=== PATIENT | female | born 1955 ===

== ENCOUNTER → 2020-03-29 14:35 | Outpatient (BNVA) | payer MEDICAID, SELFPAY | PROVIDERS: PCP Internal Medicine; Visit Provider Hospitalist | DX: D86.9 Sarcoidosis, unspecified (principal); R91.8 Other nonspecific abnormal finding of lung field; G47.33 Obstructive sleep apnea (adult) (pediatric); Z99.89 Dependence on other enabling machines and devices | CPT/HCPCS: 99212 ==

== ENCOUNTER → 2020-05-31 14:22 | Outpatient (BNVA) | payer MEDICAID, SELFPAY | PROVIDERS: PCP Internal Medicine; Visit Provider Hospitalist ==

== ENCOUNTER → 2020-10-28 13:07 | Outpatient (BNVA) | payer MEDICAID, SELFPAY | PROVIDERS: PCP Internal Medicine; Visit Provider Hospitalist | DX: N18.9 Chronic kidney disease, unspecified (principal); G47.33 Obstructive sleep apnea (adult) (pediatric); R91.8 Other nonspecific abnormal finding of lung field; D86.9 Sarcoidosis, unspecified; Z99.89 Dependence on other enabling machines and devices | CPT/HCPCS: 99212 ==

== ENCOUNTER 2021-01-24 20:58 | Emergency (ER) | payer OTHER, SELFPAY ==
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
[2021-01-24 21:24] VITALS: PULSE 83; RESP 18; TEMP 36.8; O2SAT 98; BMI 23.8
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
== END 2021-01-25 00:38 | disposition home or self-care (01) ==
PROVIDERS: Emergency Provider Student in an Organized Health Care Education/Training Program
DX: S13.4XXA Sprain of ligaments of cervical spine, initial encounter (principal); S29.012A Strain of muscle and tendon of back wall of thorax, initial encounter; S23.3XXA Sprain of ligaments of thoracic spine, initial encounter; M54.2 Cervicalgia; M54.50 Low back pain, unspecified; G44.309 Post-traumatic headache, unspecified, not intractable; V43.52XA Car driver injured in collision with other type car in traffic accident, initial encounter; Y93.9 Activity, unspecified; Y92.410 Unspecified street and highway as the place of occurrence of the external cause; Y99.9 Unspecified external cause status; Z79.899 Other long term (current) drug therapy
CPT/HCPCS: 70450; 72125; 99283; 99284

== ENCOUNTER 2021-03-18 16:09 | Outpatient (REF) | payer MEDICAID, SELFPAY ==
--- NOTE | ~2021-03-18 | CT_ITS ---
EXAMINATION: CT CHEST WITHOUT CONTRAST CLINICAL INFORMATION: Sarcoidosis COMPARISON: Previous chest CT December 2019 TECHNIQUE: Multidetector volumetric CT imaging of the chest was done. Axial MIP volume rendering provided. Sagittal and coronal reformatted images were obtained. This CT examination was performed using dose optimization techniques as appropriate, variously including the following: *Automated exposure control *Adjustment of mA and/or kV according to patient size (this includes techniques or standardized protocols for targeted exams where dose is matched to indication/reason for exam; i.e. extremities or head) *Use of iterative reconstruction technique DLP: 204 mGy-cm FINDINGS: LUNGS: The right hemidiaphragm no longer appears elevated. There is mild reticular nodular disease seen in the upper lobes, right greater than left. This appears unchanged. There is slight volume loss to right upper lobe that appears unchanged. There is mild biapical pleural and parenchymal scarring. MEDIASTINUM: The thyroid gland appears prominent. There is shotty mediastinal lymphadenopathy that appears unchanged. Evaluation for hilar adenopathy is limited without contrast. The heart does not appear enlarged. There is no pericardial effusion. There may be a small esophageal hernia. PLEURA: There is no pleural effusion. No pleural mass or thickening. There is a left posterior medial diaphragmatic hernia containing fat. AXILLA: There are small bilateral axillary lymph nodes. No enlarged axillary lymph nodes or chest wall mass is seen. UPPER ABDOMEN: Unremarkable. OSSEOUS STRUCTURES: Unremarkable. CT/CT chest wo con IMPRESSION: Mild bilateral upper lobe reticular nodular disease, right greater than left, and upper normal-size mediastinal lymph nodes similar to previous exam. Enlarged thyroid gland.. Fleischner guidelines were followed.
== END 2021-03-18 16:10 | disposition home or self-care (01) ==
LOC: HO.CT 16:09
PROVIDERS: Visit Provider Hospitalist
DX: D86.9 Sarcoidosis, unspecified (principal); R91.8 Other nonspecific abnormal finding of lung field
CPT/HCPCS: 71250

== ENCOUNTER 2021-05-22 18:09 | Emergency (ER) | payer MEDICARE, MEDICAID, SELFPAY ==
--- NOTE | ~2021-05-22 | XR_ITS ---
EXAMINATION: XR CHEST CLINICAL INFORMATION: Cough COMPARISON: CT chest 03/18/2021, chest radiograph 05/18/2019 TECHNIQUE: 2 views of the chest were obtained. FINDINGS: No significant abnormality is noted involving the heart, lungs, mediastinum, bony thorax or soft tissues. Bilateral upper lobe reticular nodular disease is appreciated on prior chest CTs not apparent on the plain film radiograph. XR/XR chest 2V IMPRESSION: No acute intrathoracic disease.
[2021-05-22 18:31] VITALS: BP 159/83; PULSE 78; RESP 18; TEMP 36.2; O2SAT 98; BMI 23.8
[2021-05-22 19:08] LABS: COVID-19 Test Negative (Negative)
[2021-05-22 22:36] VITALS: BP 114/78; PULSE 77; RESP 17; O2SAT 97
[2021-05-22 22:39] VITALS: TEMP 36.9
--- NOTE | 2021-05-22 22:48 | ED_ITS ---
HPI - URI/Sore Throat General Chief Complaint: General Medical Stated Complaint: Asthma/Cough Time Seen by Provider: 05/22/21 22:37 Source: patient Mode of arrival: ambulatory Limitations: no limitations History of Present Illness MD elicited complaint: cough Pertinent past history: asthma Onset (ago): week(s) (1) Consistency: intermittent Severity: mild Able to tolerate fluids by mouth: Yes Exacerbating factors: other (noted it occurred at work today) Relieving factors: nothing Context: other (hx of asthma but does not carry a rescue inhaler) Associated symptoms: denies other symptoms Treatments prior to arrival: none Related Data Home Medications Medication Instructions Recorded Confirmed ascorbate calcium (vitamin C) 500 500 mg PO DAILY 03/29/20 10/28/20 mg tablet clonazepam 0.5 mg tablet 0.5 mg PO DAILY 03/29/20 10/28/20 levothyroxine 112 mcg capsule 112 mcg PO DAILY 03/29/20 10/28/20 multivitamin 1 tab PO DAILY 03/29/20 10/28/20 simvastatin 10 mg tablet 10 mg PO DAILY 03/29/20 10/28/20 Previous Rx's Medication Instructions Recorded albuterol sulfate 90 mcg/actuation 2 puff INHALATION Q6H PRN #8.5 g 05/22/21 aerosol inhaler (Ventolin HFA) prednisone 20 mg tablet 40 mg PO DAILY 4 Days #8 tab 05/22/21 Allergies Allergy/AdvReac Type Severity Reaction Status Date / Time aspirin [ASPIRIN] AdvReac Severe KIDNEY Verified 01/24/21 21:24 FAILURE/KIDNEY PROBLEMS ibuprofen [IBUPROFEN] AdvReac Intermediate KIDNEY Verified 01/24/21 21:24 PROBLEMS Review of Systems Review of Systems: Constitutional : No Fever, No Chills ENT/Mouth : No Hoarseness, No sore throat, No Rhinorrhea Eyes: No Redness, No Discharge, No Vision Changes Cardiovascular : No Chest Pain, no SOB, no Dyspnea on Exertion, No Edema Respiratory : positive Cough, No Sputum, no Wheezing, Gastrointestinal : No Nausea, No Vomiting, No Diarrhea, No abdominal Pain Genitourinary : No Dysuria, No Hematuria Musculoskeletal : No joint pain, No Myalgias Skin : No rash Neuro : No Weakness, No Numbness, No Headache Psych : No anxiety, depression All other systems reviewed and are negative [facility] Past Medical History Attestation statement: The following information was validated with the patient. Medical History Chronic renal disease ADELINA on CPAP Pulmonary nodules Sarcoidosis Social History Social History Patient Tobacco Use Status: Never used Tobacco Advance Directives: No Advance Directives Information Provided: No Physical Exam Vital Signs: Vital Signs: Last Vital Signs Temp 98.4 F 05/22/21 22:39 Pulse 77 05/22/21 22:36 Resp 17 05/22/21 22:36 BP 114/78 05/22/21 22:36 Pulse Ox 97 05/22/21 22:36 BMI result Body Mass Index 23.8 Appearance: Alert. Oriented X3. No acute distress. Eyes: Pupils equal, round and reactive to light. ENT: Pharynx normal. Neck: Normal inspection. Neck supple. CVS: Normal heart rate and rhythm. Pulses normal. Respiratory: No respiratory distress. Breath sounds normal. Abdomen: Soft and non-tender. Skin: Skin warm and dry. Normal skin color. Normal skin turgor. Extremities: No lower extremity edema. No calf ttp Neuro: Oriented X 3. No motor deficit. No sensory deficit. MDM - URI/Sore Throat MDM Narrative Medical decision making narrative: 65 yo female with dry cough for 1 week no CP/SOB but at work today coughed a lot. Does not have rescue inhaler she is not wheezing, not having fevers or mucous production. She no longer carries a rescue inhaler. Does have hx of sarcoidosis and asthma. At this time will give rescue INH and prednisone - she looks well has clear lungs suspect mild asthma. Stable for DC with medications. COVID swab and CXR negative from triage Lab Data Labs: Lab Results 05/22/21 Range/Units 18:33 COVID-19 ([facility]) Negative (Negative) COVID-19 Clin Com See Note Discharge Plan Discharge Clinical Impression: Cough Patient Disposition: Home, Self-Care Instructions: Acute Cough (ED) Additional Instructions: return to ED for any worsening symptoms or concerns Prescriptions: New albuterol sulfate [Ventolin HFA] 90 mcg/actuation HFA aerosol inhaler 2 puff inhalation Q6H PRN (Reason: shortness of breath or wheezing) Qty: 8.5 0RF prednisone 20 mg tablet 40 mg PO DAILY 4 Days Qty: 8 0RF No Action levothyroxine 112 mcg capsule 112 mcg PO DAILY 0RF ascorbate calcium (vitamin C) 500 mg tablet 500 mg PO DAILY 0RF multivitamin Tablet 1 tab PO DAILY 0RF simvastatin 10 mg tablet 10 mg PO DAILY 0RF clonazepam 0.5 mg tablet 0.5 mg PO DAILY 0RF Referrals: Physician,Unknown J [Primary Care Provider] - 3 days Stand Alone Forms: Work/School Release Print Language: Swedish
[2021-05-22] MEDS: predniSONE 20 MG TABLET 40 MG PO (23:34)
[2021-05-22] MEDS: Albuterol Sulfate 90 MCG 8 GM INHALER 2 PUFF INHALE (23:49)
[2021-05-22 23:51] VITALS: PULSE 94; RESP 18; O2SAT 97
== END 2021-05-23 00:08 | disposition home or self-care (01) ==
LOC: HO.ED 22:54
PROVIDERS: Emergency Provider Emergency Medicine
DX: R05.9 Cough, unspecified (principal); J45.909 Unspecified asthma, uncomplicated; Z20.822 Contact with and (suspected) exposure to COVID-19; Z79.899 Other long term (current) drug therapy
CPT/HCPCS: 71046; 87635; 94640; 99283; 99284

== ENCOUNTER → 2021-05-30 15:27 | Outpatient (BNVA) | payer MEDICARE, MEDICAID, SELFPAY | PROVIDERS: PCP Internal Medicine; Visit Provider Hospitalist | DX: D86.9 Sarcoidosis, unspecified (principal); G47.33 Obstructive sleep apnea (adult) (pediatric); R91.8 Other nonspecific abnormal finding of lung field; J18.0 Bronchopneumonia, unspecified organism; J45.21 Mild intermittent asthma with (acute) exacerbation; Z99.89 Dependence on other enabling machines and devices | CPT/HCPCS: 99212 ==

== ENCOUNTER 2021-08-21 15:04 | Emergency (ER) | payer MEDICAID, SELFPAY ==
--- NOTE | ~2021-08-21 | XR_ITS ---
EXAMINATION: XR CHEST CLINICAL INFORMATION: Congestion, cough COMPARISON: Chest radiographs 05/22/2021, 05/18/2019, CT chest noncontrast 03/18/2021 TECHNIQUE: Frontal view of the chest was obtained. FINDINGS: There is mild coarsening of the bronchovascular markings upper zones similar to CT and prior chest radiograph. There is no lobar or segmental airspace consolidation or groundglass opacity. No vascular congestion or effusion. The costophrenic sulci are clear. The heart is normal in size. The hilar and mediastinal contours and bony structures are stable. XR/XR chest 1V IMPRESSION: No acute intrathoracic disease.
[2021-08-21 16:08] VITALS: BP 126/66; PULSE 91; RESP 16; TEMP 36.3; O2SAT 96; BMI 25.4
--- NOTE | 2021-08-21 16:19 | ECG_ITS ---
Test Reason : DIZZINESS Blood Pressure : / mmHG Vent. Rate : 090 BPM Atrial Rate : 090 BPM P-R Int : 122 ms QRS Dur : 078 ms QT Int : 344 ms P-R-T Axes : 058 064 036 degrees QTc Int : 420 ms Normal sinus rhythm Normal ECG When compared with ECG of 15-JUN-2019 16:20, No significant change was found Referred By: Generic ED Physician Electronically Signed By:ASHLEY MONTANEZ MD
[2021-08-21 16:36] LABS: MANUAL DIFF FLAG NO
[2021-08-21 16:37] LABS: Basophils Percent Auto 0.6 % (0-2); Eosinophils Absolute Auto 0.1 X10*3/uL (0.0-0.4); Eosinophils Percent Auto 1.9 % (0-4); Hematocrit 41.5 % (37.0-47.0); Hemoglobin 13.9 g/dl (12.0-16.0); Imm Gran Abs Auto 0.01 X10*3/uL (0.00-0.03); Imm Gran Pct Auto 0.2 % (0.0-0.4); Lymphocytes Absolute Auto 0.8 X10*3/uL (1.2-4.9); Lymphocytes Percent Auto 15.8 % (20-40); Mean Corpuscular HGB Conc 33.5 g/dl (31.0-35.0); Mean Corpuscular Hemoglobin 30.3 pg (27.0-33.0); Mean Corpuscular Volume 90.6 fL (80.0-98.0); Mean Platelet Volume 9.8 fL (9.4-12.3); Monocytes Absolute Auto 0.9 X10*3/uL (0.1-1.2); Monocytes Percent Auto 16.6 % (2-11); Neutrophils Absolute Auto 3.5 x10*3/uL (2.0-8.3); Neutrophils Percent Auto 64.9 % (45-73); Platelet Count 211 X10*3/uL (160-400); Red Blood Count 4.58 X10*6/uL (4.20-5.50); Red Cell Distribution Width 12.5 % (11.0-16.0); White Blood Count 5.3 X10*3/uL (4.8-10.8)
[2021-08-21 16:45] LABS: Strep A Nucleic Acid Negative (Negative)
[2021-08-21 16:53] LABS: Anion Gap 13 (12-20); Blood Urea Nitrogen 21 mg/dL (9-16); Carbon Dioxide 27 mmol/L (22-29); Chloride 102 mmol/L (96-108); Creatinine Clr Calc Pharmacy 47.1; Estimated Glomerular Filt Rate 50; Glucose Random 96 mg/dL (60-115); Potassium 4.3 mmol/L (3.3-5.1); Sodium 138 mmol/L (135-145)
[2021-08-21 16:55] LABS: IDNOW Serial# 55D5AD1C; Influenza A Negative (Negative); Influenza B2 Negative (Negative)
[2021-08-21 16:58] LABS: Troponin-I High Sensitivity < 3.5 ng/L (<3.5-17.0)
[2021-08-21 17:04] LABS: COVID-19 Test Positive (Negative)
[2021-08-21 23:09] VITALS: BP 154/72; PULSE 105; RESP 18; TEMP 36.2; O2SAT 98
--- NOTE | 2021-08-21 23:37 | ED.URI ---
HPI - URI/Sore Throat General Chief Complaint: Upper Respiratory Symptoms Stated Complaint: headache,coughing,congested Time Seen by Provider: 08/21/21 23:37 Source: patient Mode of arrival: ambulatory History of Present Illness HPI Narrative: 66-year-old female with a past medical history of CKD, ADELINA on CPAP, pulmonary nodules, sarcoidosis, presenting to the ED complaining of dry cough, congestion, headache, lightheadedness, chills, body aches, subjective fever since yesterday. Reports mild intermittent SOB. Admits was in contact with COVID 19 positive person. Denies chest pain, ear pain, recent travel, pedal edema MD elicited complaint: cough, sore throat, rhinorrhea and nasal congestion Onset (ago): day(s) Related Data Home Medications Medication Instructions Recorded Confirmed ascorbate calcium (vitamin C) 500 500 mg PO DAILY 03/29/20 10/28/20 mg tablet clonazepam 0.5 mg tablet 0.5 mg PO DAILY 03/29/20 10/28/20 levothyroxine 112 mcg capsule 112 mcg PO DAILY 03/29/20 10/28/20 multivitamin 1 tab PO DAILY 03/29/20 10/28/20 simvastatin 10 mg tablet 10 mg PO DAILY 03/29/20 10/28/20 finasteride 5 mg tablet 2.5 mg PO DAILY 05/30/21 Previous Rx's Medication Instructions Recorded prednisone 20 mg tablet 40 mg PO DAILY 4 Days #8 tab 05/22/21 albuterol sulfate 90 mcg/actuation 2 puff INHALATION Q6H PRN #8.5 g 05/30/21 aerosol inhaler (Ventolin HFA) cefpodoxime 200 mg tablet 200 mg PO BID 10 Days #20 tab 05/30/21 doxycycline hyclate 100 mg capsule 100 mg PO BID 10 Days #20 cap 05/30/21 prednisone 20 mg tablet See Rx Instructions PO DAILY 10 05/30/21 Days #15 tab Allergies Allergy/AdvReac Type Severity Reaction Status Date / Time aspirin [ASPIRIN] AdvReac Severe KIDNEY Verified 05/30/21 15:29 FAILURE/KIDNEY PROBLEMS ibuprofen [IBUPROFEN] AdvReac Intermediate KIDNEY Verified 05/30/21 15:29 PROBLEMS Review of Systems Review of Systems: Constitutional: +subj Fever, No Chills ENT/Mouth: No Ear Pain, + Nasal Congestion, No Sinus Pain, No Hoarseness, + sore throat, N+o Rhinorrhea, No Swallowing Difficulty Cardiovascular: No Chest Pain, + SOB Respiratory: + Cough, No Sputum, No Wheezing Gastrointestinal: No Nausea, No Vomiting, No Diarrhea, No Constipation, No Abdominal pain Genitourinary: No Dysuria, No Urinary Frequency, No Flank Pain Musculoskeletal: No joint pain, No Myalgias, No Joint Swelling Skin: No Skin Lesions, No rash Neuro: No Weakness, No Numbness, No Paresthesias Yes all other systems are reviewed and are negative [facility] Past Medical History Attestation statement: The following information was validated with the patient. Medical History Chronic renal disease ADELINA on CPAP Pulmonary nodules Sarcoidosis Social History Social History Patient Tobacco Use Status: Never used Tobacco Advance Directives: No Physical Exam Vital Signs: Vital Signs: Last Vital Signs Temp 97.1 F 08/21/21 23:09 Pulse 88 08/21/21 23:50 Resp 16 08/21/21 23:50 BP 154/72 H 08/21/21 23:09 Pulse Ox 95 08/21/21 23:50 BMI result Body Mass Index 25.4 Const: General: cooperative, healthy appearing and no acute distress Orientation/consciousness: patient oriented x3 Limitations: no limitations HEENT: Head: Yes normal to inspection and Yes atraumatic Ears: hearing grossly normal bilaterally and external ears normal General nose exam: Normal external nose present Face and sinus: Yes normal facial exam Mouth: Normal oral and palatal mucosa present Throat: Yes posterior oropharynx normal, Yes tonsils normal, Yes uvula midline, No peritonsillar mass and No uvular edema Eyes: General: appearance normal, both eyes and all related structures EOM: EOMs intact bilaterally Neck: Neck: Yes normal visual inspection and Yes no meningeal signs Resp: Effort & Inspection: normal respiratory effort and no respiratory distress Auscultation: clear to auscultation bilaterally, no rales, no rhonchi and no wheezes Cardio: Rate: regular rate Heart sounds: S1 normal heart sound present and S2 normal heart sound present : General: Yes no CVA tenderness Back/Spine/Pelvis: Back: no CVA tenderness Skin: Rashes: no rashes Wounds: no wounds Neuro: General: patient oriented x3, tone normal and no meningeal signs Gait exam (Neuro): Normal gait present Extrem: General: Yes normal to inspection, Yes no pedal edema and Yes no calf tenderness Course Course Course Narrative: - labs unremarkable. Troponin negative. - COVID-19 positive XR chest 1V IMPRESSION: No acute intrathoracic disease. >> results discussed with patient including worrisome signs and symptoms and strict return precautions and needed close follow-up with PCP Patient referral made to [facility] for monoclonal antibodies MDM - URI/Sore Throat MDM Narrative Medical decision making narrative: 66-year-old female with a past medical history of CKD, ADELINA on CPAP, pulmonary nodules, sarcoidosis, presenting to the ED complaining of dry cough, congestion, headache, lightheadedness, chills, body aches, subjective fever since yesterday. on exam vital signs stable, (patient was triaged on RA not nasal cannula like documented), no hypoxia, lungs CTA, nontoxic appearing. Concern for viral illness including COVID-19 versus influenza. Rule out pneumonia. Symptoms atypical for ACS/PE Plan: Labs, CXR, COVID 19/influenza testing Differential Diagnosis Differential diagnosis: Likely upper respiratory infection, sinusitis, viral infection, bronchitis, influenza and pharyngitis Medical Records Attestation: I reviewed the patient's medical records. Lab Data Attestation: I reviewed the patient's lab results. Result diagrams: 08/21/21 16:31 08/21/21 16:31 Labs: Lab Results 08/21/21 08/21/21 08/21/21 Range/Units 16:31 16:31 16:31 WBC 5.3 (4.8-10.8) X10*3/uL RBC 4.58 (4.20-5.50) X10*6/uL Hgb 13.9 (12.0-16.0) g/dl Hct 41.5 (37.0-47.0) % MCV 90.6 (80.0-98.0) fL MCH 30.3 (27.0-33.0) pg MCHC 33.5 (31.0-35.0) g/dl RDW 12.5 (11.0-16.0) % Plt Count 211 (160-400) X10*3/uL MPV 9.8 (9.4-12.3) fL Immature Gran % (Auto) 0.2 (0.0-0.4) % Neut % (Auto) 64.9 (45-73) % Lymph % (Auto) 15.8 L (20-40) % [place] % (Auto) 16.6 H (2-11) % Eos % (Auto) 1.9 (0-4) % Baso % (Auto) 0.6 (0-2) % Lymph # (Auto) 0.8 L (1.2-4.9) X10*3/uL [place] # (Auto) 0.9 (0.1-1.2) X10*3/uL Eos # (Auto) 0.1 (0.0-0.4) X10*3/uL Baso # (Auto) 0.0 (0.0-0.2) X10*3/uL Abs Immat Gran (auto) 0.01 (0.00-0.03) X10*3/uL Absolute Neuts (auto) 3.5 (2.0-8.3) x10*3/uL Absolute Nucleated RBC 0.000 (0.0-0.012) X10*3/uL Nucleated RBC % (auto) 0.0 (0.0-0.2) /100WBC Sodium 138 (135-145) mmol/L Potassium 4.3 (3.3-5.1) mmol/L Chloride 102 (96-108) mmol/L Carbon Dioxide 27 (22-29) mmol/L Anion Gap 13 (12-20) BUN 21 H (9-16) mg/dL Creatinine 1.09 (0.5-1.4) mg/dL Estim Creat Clear Calc 47.1 Estimated GFR 50 Random Glucose 96 (60-115) mg/dL Calcium 10.0 (8.4-10.2) mg/dL Troponin I High Sens (<3.5-17.0) ng/L COVID-19 ([facility]) (Negative) COVID-19 Clin Com Influenza Type A ([facility]) Negative (Negative) Influenza Type B ([facility]) Negative (Negative) Influenza A & B Note See Note S. pyogenes GrpA [facility] (Negative) 08/21/21 08/21/21 08/21/21 Range/Units 16:31 16:31 16:31 WBC (4.8-10.8) X10*3/uL RBC (4.20-5.50) X10*6/uL Hgb (12.0-16.0) g/dl Hct (37.0-47.0) % MCV (80.0-98.0) fL MCH (27.0-33.0) pg MCHC (31.0-35.0) g/dl RDW (11.0-16.0) % Plt Count (160-400) X10*3/uL MPV (9.4-12.3) fL Immature Gran % (Auto) (0.0-0.4) % Neut % (Auto) (45-73) % Lymph % (Auto) (20-40) % [place] % (Auto) (2-11) % Eos % (Auto) (0-4) % Baso % (Auto) (0-2) % Lymph # (Auto) (1.2-4.9) X10*3/uL [place] # (Auto) (0.1-1.2) X10*3/uL Eos # (Auto) (0.0-0.4) X10*3/uL Baso # (Auto) (0.0-0.2) X10*3/uL Abs Immat Gran (auto) (0.00-0.03) X10*3/uL Absolute Neuts (auto) (2.0-8.3) x10*3/uL Absolute Nucleated RBC (0.0-0.012) X10*3/uL Nucleated RBC % (auto) (0.0-0.2) /100WBC Sodium (135-145) mmol/L Potassium (3.3-5.1) mmol/L Chloride (96-108) mmol/L Carbon Dioxide (22-29) mmol/L Anion Gap (12-20) BUN (9-16) mg/dL Creatinine (0.5-1.4) mg/dL Estim Creat Clear Calc Estimated GFR Random Glucose (60-115) mg/dL Calcium (8.4-10.2) mg/dL Troponin I High Sens < 3.5 (<3.5-17.0) ng/L COVID-19 ([facility]) Positive A (Negative) COVID-19 Clin Com See Note Influenza Type A ([facility]) (Negative) Influenza Type B ([facility]) (Negative) Influenza A & B Note S. pyogenes GrpA [facility] Negative (Negative) Discharge Plan Discharge Clinical Impression: COVID-19 Patient Disposition: Home, Self-Care Instructions: COVID-19 (Coronavirus Disease 2019) (ED) Additional Instructions: your blood work and chest x-ray were reassuring today in the emergency department a referral was made for you for monoclonal antibodies, they will call you to make an appointment At this time you will be okay for discharge. Please self isolate for 10-14 days. Do not expose yourself to others. You may not go to work or school. Please continue to follow cold instructions and wash your hands frequently. You may take Tylenol / Motrin as directed on the bottle for pain or fever. If you have constant or persistent shortness of breath, fever unresolved with medications, chest pain, or your unable to eat or drink please return to the ED CDC Guidelines for home isolation: - Stay away from others - WEAR A MASK if you are sick AND STAY HOME - Cover your mouth and nose with a tissue when you cough or sneeze. Dispose of tissues in a lined trash can and wash your hands immediately with soap and water for at least 20 seconds. If soap and water are not available, clean hands with alcohol-based hand senior agricultural assistant that contains at least 60% alcohol. - Clean your hands often with soap and water for at least 20 seconds - Avoid touching your eyes, nose and mouth with unwashed hands - Do not share dishes, drinking glasses, cups, eating utensils, towels, or bedding with other people in your home. After using these items, wash them thoroughly with soap and water or put in the capacity manager. - Clean high-touch surfaces in your isolation area ( sick room and bathroom) every day; let a caregiver clean and disinfect high-touch surfaces in other areas of the home. Clean the area or item with soap and water or another detergent if it is dirty. Then, use a household disinfectant. - Limit contact with pets and animals: If you must care for a pet, wash your hands before and after interacting with them) Prescriptions: No Action prednisone 20 mg tablet 40 mg PO DAILY 4 Days Qty: 8 0RF levothyroxine 112 mcg capsule 112 mcg PO DAILY 0RF ascorbate calcium (vitamin C) 500 mg tablet 500 mg PO DAILY 0RF multivitamin Tablet 1 tab PO DAILY 0RF simvastatin 10 mg tablet 10 mg PO DAILY 0RF clonazepam 0.5 mg tablet 0.5 mg PO DAILY 0RF ipratropium-albuterol 0.5 mg-3 mg(2.5 mg base)/3 mL solution for nebulization 3 ml inhalation ONCE Qty: 3 0RF finasteride 5 mg tablet 2.5 mg PO DAILY 0RF prednisone 20 mg tablet See Rx Instructions PO DAILY 10 Days Qty: 15 0RF Rx Instructions: PO daily; Take 2 tabs daily x 5 days, then 1 tablet daily x 5 days doxycycline hyclate 100 mg capsule 100 mg PO BID 10 Days Qty: 20 0RF cefpodoxime 200 mg tablet 200 mg PO BID 10 Days Qty: 20 0RF Rx Instructions: must administer with a meal/food albuterol sulfate [Ventolin HFA] 90 mcg/actuation HFA aerosol inhaler 2 puff inhalation Q6H PRN (Reason: shortness of breath or wheezing) Qty: 8.5 0RF Referrals: Physician,Unknown J [Primary Care Provider] - Stand Alone Forms: Work/School Release
[2021-08-21 23:50] VITALS: PULSE 88; RESP 16; O2SAT 95
--- NOTE | 2021-08-22 00:29 | PC.NURSE ---
patient awake and alert. skin pwd. resp even and non labored. speaking in full, clear sentences. d/c instructions reviewed w/ patient- patient states i have a headache, you dont have tylenol this RN offered to get an order for the patient- patient states no, no i have to go and proceeded to leave ED.
== END 2021-08-22 00:31 | disposition home or self-care (01) ==
PROVIDERS: Emergency Provider Student in an Organized Health Care Education/Training Program
DX: U07.1 COVID-19 (principal); N18.9 Chronic kidney disease, unspecified; G47.33 Obstructive sleep apnea (adult) (pediatric); Z99.89 Dependence on other enabling machines and devices
CPT/HCPCS: 36415; 71045; 80048; 84484; 85025; 87502; 87635; 87651; 93005; 99283; 99284

== ENCOUNTER 2022-02-26 15:11 | Outpatient (REF) | payer MEDICARE, MEDICAID, SELFPAY ==
--- NOTE | ~2022-02-26 | CT_ITS ---
EXAMINATION: CT CHEST WITHOUT CONTRAST CLINICAL INFORMATION: Sarcoidosis COMPARISON: Previous chest CT most recent March 2021 and chest x-ray most recent August 2021 TECHNIQUE: Multidetector volumetric CT imaging of the chest was done. Axial MIP volume rendering provided. Sagittal and coronal reformatted images were obtained. This CT examination was performed using dose optimization techniques as appropriate, variously including the following: *Automated exposure control *Adjustment of mA and/or kV according to patient size (this includes techniques or standardized protocols for targeted exams where dose is matched to indication/reason for exam; i.e. extremities or head) *Use of iterative reconstruction technique DLP: 104 mGy-cm FINDINGS: LUNGS: There is mild reticular nodular disease seen in both upper lobes. There is mild right upper lobe volume loss. There is mild biapical pleural and parenchymal scarring. This is similar to previous exam. MEDIASTINUM: There is shotty mediastinal lymphadenopathy. Evaluation for hilar adenopathy is limited without contrast. Normal heart size. No pericardial effusion. There may be a small esophageal hernia. CORONARY ARTERY CALCIFICATION: Mild PLEURA: There is no pleural effusion. There is a small left posterior medial diaphragmatic hernia containing fat. AXILLA: Small axillary lymph nodes. No enlarged lymph nodes or chest wall mass is seen. UPPER ABDOMEN: Unremarkable. OSSEOUS STRUCTURES: Unremarkable. CT/CT chest wo IV con IMPRESSION: Stable chest CT. Fleischner guidelines were followed.
== END 2022-02-26 15:12 | disposition home or self-care (01) ==
LOC: HO.CT 15:11
PROVIDERS: Visit Provider Hospitalist
DX: R91.8 Other nonspecific abnormal finding of lung field (principal)
CPT/HCPCS: 71250

== ENCOUNTER 2022-03-06 16:35 | Emergency (ER) | payer MEDICARE, MEDICAID, SELFPAY ==
[2022-03-06 17:37] VITALS: BP 136/76; PULSE 73; RESP 18; TEMP 36.6; O2SAT 96; BMI 23.8
[2022-03-06 18:26] LABS: Influenza A PCR POSITIVE (Negative); Influenza B PCR NEGATIVE (Negative); Resp Syncy Virus RNA Qual PCR NEGATIVE (Negative); SARS COV2 PCR INHOUSE NEGATIVE (Negative)
[2022-03-06 20:01] VITALS: BP 143/79; PULSE 72; RESP 17; TEMP 36.8; O2SAT 99
--- NOTE | 2022-03-06 20:14 | ED.URI ---
HPI - URI/Sore Throat General Chief Complaint: Upper Respiratory Symptoms Stated Complaint: ? bronchitis, asthma Time Seen by Provider: 03/06/22 20:12 Source: patient Mode of arrival: ambulatory Limitations: no limitations History of Present Illness HPI Narrative: Patient is a 66-year-old female presents to the emergency department for evaluation of upper respiratory symptoms. Symptom onset was 5 days ago. She is been having headache, congestion; nasal/chest, cough. Denies fevers, chills, shortness of breath, difficulty breathing, chest pain, palpitations, nausea, vomiting, abdominal pain, numbness or tingling of the extremities, dizziness or lightheadedness. She does state that she has been around coworkers who have been sick with similar symptoms. Related Data Home Medications Medication Instructions Recorded Confirmed ascorbate calcium (vitamin C) 500 500 mg PO DAILY 03/29/20 10/28/20 mg tablet levothyroxine 112 mcg capsule 112 mcg PO DAILY 03/29/20 10/28/20 multivitamin 1 tab PO DAILY 03/29/20 10/28/20 clobetasol 0.05 % topical ointment g topical 11/17/21 Previous Rx's Medication Instructions Recorded albuterol sulfate 90 mcg/actuation 2 inh inhalation Q6H PRN shortness 11/17/21 aerosol inhaler of breath or wheezing 30 days #18 grams oseltamivir 30 mg capsule (Tamiflu) 30 mg PO BID 5 days #10 caps 03/06/22 Allergies Allergy/AdvReac Type Severity Reaction Status Date / Time aspirin [ASPIRIN] AdvReac Severe KIDNEY Verified 03/06/22 17:37 FAILURE/KIDNEY PROBLEMS ibuprofen [IBUPROFEN] AdvReac Intermediate KIDNEY Verified 03/06/22 17:37 PROBLEMS Review of Systems Review of Systems: Constitutional: No fever. No chills. No weakness. Positive fatigue. ENT/ Mouth: No Ear Pain, positive Nasal Congestion, no sore throat, No Rhinorrhea, No Swallowing Difficulty Skin: No rash or itching. Cardiovascular: No chest pain. No palpitations. Respiratory: No shortness of breath. Positive cough. Positive sputum production. Gastrointestinal: No nausea. No vomiting. No diarrhea. No abdominal pain. Genitourinary: No burning micturition. No urinary frequency. Neurologic: No headache. No dizziness. No syncope. No numbness or tingling in the extremities. Musculoskeletal: No muscle pain. No back pain. No joint pain or stiffness. Yes all other systems are reviewed and are negative [facility] Past Medical History Attestation statement: The following information was validated with the patient. Source: old records reviewed Medical History Chronic renal disease ADELINA on CPAP Pulmonary nodules Sarcoidosis Social History Social History Patient Tobacco Use Status: Never used Tobacco Advance Directives: No Advance Directives Information Provided: No Physical Exam Vital Signs: Vital Signs: Last Vital Signs Temp 98.2 F 03/06/22 20:01 Pulse 72 03/06/22 20:01 Resp 17 03/06/22 20:01 BP 143/79 H 03/06/22 20:01 Pulse Ox 99 03/06/22 20:01 O2 Del Method 03/06/22 20:01 BMI result Body Mass Index 23.8 Appearance: Alert.?Oriented to person, place and time. No acute distress.?Normal affect. Eyes: Pupils equal, round and reactive to light.? ENT: TM normal bilaterally. Pharynx normal.?? Neck: Normal inspection.? Neck supple.??No cervical adenopathy CVS: Heart sounds normal. Normal heart rate and rhythm.? Pulses normal.?? Respiratory: No respiratory distress.? Lung sounds clear to auscultation bilaterally?? Abdomen: Soft and non-tender. Normoactive bowel sounds. Skin: Skin warm and dry.? Normal skin color.? ? Extremities: No lower extremity edema.? Neuro: Moves all extremities spontaneously. Sensation intact bilaterally. No motor deficits. Ambulates with normal steady gait. Course Course Course Narrative: Patient is a 66-year-old female with past medical history of CKD, sarcoidosis, obstructive sleep apnea, presenting for evaluation of upper respiratory symptoms. COVID-19 testing negative. Influenza A testing positive. At this time history and physical exam not consistent with ACS/PE/pneumonia. Well-appearing, nontoxic, afebrile, no tachycardia or tachypnea/hypoxia. Speaking clear full sentences, ambulatory with steady gait. Discussed conservative treatment including rest, hydration, Tylenol/ibuprofen as needed for fever and body aches, saline nasal spray, humidifier, [id number] cold medication. Prescription for Tamiflu sent to patient's pharmacy; renal dosing adjusted based on most recent creatinine clearance. Advised to follow-up with primary care provider as needed, discussed reasons to return back to the emergency department. All questions were answered. Patient discharged home in stable condition. Medications Administered Discontinued Medications Generic Name Dose Route Start Last Admin Trade Name Freq PRN Reason Stop Dose Admin Oseltamivir Phosphate 75 mg 03/06/22 20:30 03/06/22 21:03 Oseltamivir Phosphate 75 Mg Capsule PO 03/06/22 20:31 75 mg ONCE ONE Administration MDM - URI/Sore Throat Medical Records Attestation: I reviewed the patient's medical records. Lab Data Attestation: I reviewed the patient's lab results. Labs: Lab Results 03/06/22 Range/Units 17:44 Influenza Type A (PCR) POSITIVE A (Negative) Influenza Type B (PCR) NEGATIVE (Negative) RSV RNA Qual (PCR) NEGATIVE (Negative) SARS-CoV-2 RNA (RT-PCR) NEGATIVE (Negative) Discharge Plan Discharge Clinical Impression: Influenza Patient Disposition: Home, Self-Care Instructions: Influenza (ED) Additional Instructions: A prescription for Tamiflu was sent to the pharmacy, you received your 1st dose in the emergency department, please take 30 mg twice daily for the next 4 days. Be sure to rest, stay well hydrated, you may use Tylenol as needed for fever/pain. Return to emergency department any new or worsening symptoms or concerns. Follow-up with your primary care provider next week. Prescriptions: New oseltamivir [Tamiflu] 30 mg capsule 30 mg PO BID 5 Days Qty: 10 0RF No Action levothyroxine 112 mcg capsule 112 mcg PO DAILY ascorbate calcium (vitamin C) 500 mg tablet 500 mg PO DAILY multivitamin Tablet 1 tab PO DAILY ipratropium-albuterol 0.5 mg-3 mg(2.5 mg base)/3 mL solution for nebulization 3 ml inhalation ONCE Qty: 3 0RF clobetasol 0.05 % ointment topical albuterol sulfate 90 mcg/actuation HFA aerosol inhaler 2 inh inhalation Q6H PRN (Reason: shortness of breath or wheezing) 30 Days Qty: 18 12RF Referrals: Physician,Unknown J [Primary Care Provider] - Stand Alone Forms: Work/School Release
[2022-03-06] MEDS: Oseltamivir Phosphate 75 MG CAPSULE PO (21:03)
== END 2022-03-06 21:07 | disposition home or self-care (01) ==
PROVIDERS: Emergency Provider Emergency Medicine
DX: J11.1 Influenza due to unidentified influenza virus with other respiratory manifestations (principal); Z20.822 Contact with and (suspected) exposure to COVID-19
CPT/HCPCS: 0241U; 99283

== ENCOUNTER 2022-03-17 12:33 | Emergency (ER) | payer MEDICARE, MEDICAID, SELFPAY ==
--- NOTE | ~2022-03-17 | XR_ITS ---
EXAMINATION: XR CHEST CLINICAL INFORMATION: Shortness of breath COMPARISON: 08/21/2021 TECHNIQUE: 2 views of the chest were obtained. FINDINGS: Diffuse bronchial wall thickening redemonstrated. No focal consolidation. No pleural effusion or pneumothorax. Normal heart size and pulmonary vascularity. No acute osseous abnormalities. XR/XR chest 2V IMPRESSION: Chronic airways disease. No focal consolidation.
[2022-03-17 13:07] VITALS: BP 164/88; PULSE 111; RESP 18; TEMP 36.8; O2SAT 97; BMI 23.8
--- NOTE | 2022-03-17 13:08 | ED.GENADULT ---
HPI - General Adult General Chief complaint: Dyspnea Stated complaint: Cough/SOB/HBP Time Seen by Provider: 03/17/22 18:33 Related Data Home Medications Medication Instructions Recorded Confirmed ascorbate calcium (vitamin C) 500 500 mg PO DAILY 03/29/20 10/28/20 mg tablet levothyroxine 112 mcg capsule 112 mcg PO DAILY 03/29/20 10/28/20 multivitamin 1 tab PO DAILY 03/29/20 10/28/20 clobetasol 0.05 % topical ointment g topical 11/17/21 Previous Rx's Medication Instructions Recorded albuterol sulfate 90 mcg/actuation 2 inh inhalation Q6H PRN shortness 11/17/21 aerosol inhaler of breath or wheezing 30 days #18 grams oseltamivir 30 mg capsule (Tamiflu) 30 mg PO BID 5 days #10 caps 03/06/22 Allergies Allergy/AdvReac Type Severity Reaction Status Date / Time aspirin [ASPIRIN] AdvReac Severe KIDNEY Verified 03/06/22 17:37 FAILURE/KIDNEY PROBLEMS ibuprofen [IBUPROFEN] AdvReac Intermediate KIDNEY Verified 03/06/22 17:37 PROBLEMS PMFSH Past Medical History Medical History Chronic renal disease ADELINA on CPAP Pulmonary nodules Sarcoidosis Social History Social History Patient Tobacco Use Status: Never used Tobacco Physical Exam ED Vital Signs: Vital Signs - 24 hr 03/17/22 13:07 Temperature 98.3 F Pulse Rate 111 H Respiratory Rate 18 Blood Pressure 164/88 H Pulse Oximetry 97 Oxygen Delivery Method Room Air BMI result Body Mass Index 23.8 Course Course Course Narrative: 66F persistent cough and chest discomfort with coughing and SOB. VS Reviewed GEN: NAD EARS: wnl THROAT: wnl LUNGS: CTAB CVS: ST, no murmurs ABD: NT/ND Discharge Plan Discharge Prescriptions: No Action oseltamivir [Tamiflu] 30 mg capsule 30 mg PO BID 5 Days Qty: 10 0RF levothyroxine 112 mcg capsule 112 mcg PO DAILY ascorbate calcium (vitamin C) 500 mg tablet 500 mg PO DAILY multivitamin Tablet 1 tab PO DAILY ipratropium-albuterol 0.5 mg-3 mg(2.5 mg base)/3 mL solution for nebulization 3 ml inhalation ONCE Qty: 3 0RF clobetasol 0.05 % ointment topical albuterol sulfate 90 mcg/actuation HFA aerosol inhaler 2 inh inhalation Q6H PRN (Reason: shortness of breath or wheezing) 30 Days Qty: 18 12RF
[2022-03-17 13:42] LABS: MANUAL DIFF FLAG NO
[2022-03-17 13:47] LABS: Basophils Absolute Auto 0.1 X10*3/uL (0.0-0.2); Basophils Percent Auto 0.4 % (0-2); Eosinophils Absolute Auto 0.1 X10*3/uL (0.0-0.4); Eosinophils Percent Auto 1.2 % (0-4); Hematocrit 36.9 % (37.0-47.0); Hemoglobin 12.3 g/dl (12.0-16.0); Imm Gran Abs Auto 0.07 X10*3/uL (0.00-0.03); Imm Gran Pct Auto 0.6 % (0.0-0.4); Lymphocytes Absolute Auto 1.2 X10*3/uL (1.2-4.9); Lymphocytes Percent Auto 10.3 % (20-40); Mean Corpuscular HGB Conc 33.3 g/dl (31.0-35.0); Mean Corpuscular Hemoglobin 30.1 pg (27.0-33.0); Mean Corpuscular Volume 90.2 fL (80.0-98.0); Mean Platelet Volume 9.3 fL (9.4-12.3); Monocytes Absolute Auto 1.2 X10*3/uL (0.1-1.2); Monocytes Percent Auto 9.6 % (2-11); Neutrophils Absolute Auto 9.4 x10*3/uL (2.0-8.3); Neutrophils Percent Auto 77.9 % (45-73); Platelet Count 267 X10*3/uL (160-400); Red Blood Count 4.09 X10*6/uL (4.20-5.50); Red Cell Distribution Width 12.6 % (11.0-16.0)
[2022-03-17 14:04] LABS: Alanine Aminotransferase 51 U/L (0-31); Albumin Level 4.2 g/dL (3.5-5.0); Alkaline Phosphatase 110 U/L (39-117); Anion Gap 10 (12-20); Aspartate Amino Transferase 34 U/L (5-31); Blood Urea Nitrogen 22 mg/dL (9-16); Calcium 9.2 mg/dL (8.4-10.2); Carbon Dioxide 30 mmol/L (22-29); Chloride 104 mmol/L (96-108); Creatinine Clr Calc Pharmacy 47.1; Estimated Glomerular Filt Rate 55; Glucose Random 85 mg/dL (60-115); Potassium 3.9 mmol/L (3.3-5.1); Sodium 140 mmol/L (135-145); Total Protein 6.8 g/dL (6.5-8.0)
[2022-03-17 14:36] LABS: Influenza A PCR NEGATIVE (Negative); Influenza B PCR NEGATIVE (Negative); Resp Syncy Virus RNA Qual PCR NEGATIVE (Negative); SARS COV2 PCR INHOUSE NEGATIVE (Negative)
--- NOTE | 2022-03-17 18:41 | ED_ITS ---
HPI - SOB/Dyspnea General Chief Complaint: Dyspnea Stated Complaint: Cough/SOB/HBP Time Seen by Provider: 03/17/22 18:33 History of Present Illness HPI Narrative: Patient 66 years old with history of lung sarcoidosis ADELINA on CPAP in the night recently had COVID 08/31 and influenza A 03/06/2022 never used tobacco comes here for increased shortness of breath patient was seen here on 03/06 and started on Tamiflu for influenza a, still feeling short of breath able to sleep in the night because of cough chest x-ray done today was negative for acute changes no focal consolidation showed chronic airway disease Related Data Home Medications Medication Instructions Recorded Confirmed ascorbate calcium (vitamin C) 500 500 mg PO DAILY 03/29/20 10/28/20 mg tablet levothyroxine 112 mcg capsule 112 mcg PO DAILY 03/29/20 10/28/20 multivitamin 1 tab PO DAILY 03/29/20 10/28/20 clobetasol 0.05 % topical ointment g topical 11/17/21 Previous Rx's Medication Instructions Recorded albuterol sulfate 90 mcg/actuation 2 inh inhalation Q6H PRN shortness 11/17/21 aerosol inhaler of breath or wheezing 30 days #18 grams oseltamivir 30 mg capsule (Tamiflu) 30 mg PO BID 5 days #10 caps 03/06/22 codeine 10 mg-guaifenesin 100 mg/5 10 ml PO Q6H PRN cough #237 mL 03/17/22 mL oral liquid prednisone 20 mg tablet 40 mg PO DAILY #10 tabs 03/17/22 Allergies Allergy/AdvReac Type Severity Reaction Status Date / Time aspirin [ASPIRIN] AdvReac Severe KIDNEY Verified 03/06/22 17:37 FAILURE/KIDNEY PROBLEMS ibuprofen [IBUPROFEN] AdvReac Intermediate KIDNEY Verified 03/06/22 17:37 PROBLEMS Review of Systems Review of Systems: Yes all other systems are reviewed and are negative [facility] Past Medical History Medical History Chronic renal disease ADELINA on CPAP Pulmonary nodules Sarcoidosis Social History Social History Patient Tobacco Use Status: Never used Tobacco Advance Directives: No Advance Directives Information Provided: No Physical Exam Vital Signs: Vital Signs: Last Vital Signs Temp 99.2 F 03/17/22 19:04 Pulse 70 03/17/22 21:00 Resp 20 03/17/22 21:00 BP 152/74 H 03/17/22 19:04 Pulse Ox 95 03/17/22 19:04 O2 Del Method 03/17/22 19:04 BMI result Body Mass Index 23.8 Appearance: Alert. Oriented X3. No acute distress. Eyes: PERRLA, No Nystagmus ENT: Pharynx normal. Oral Mucosa moist Neck: Normal inspection. Neck supple. CVS: Normal heart rate and rhythm. Pulses normal. Respiratory: No respiratory distress. Equal air entry bilateral, prolonged expiration Abdomen: Soft and nontender. Bowel sounds are present, no mass palpable, no CVA tenderness Skin: Skin warm and dry. Normal skin color. Normal skin turgor. Extremities: No lower extremity edema. No calf tenderness Neuro: Oriented X 3. No motor deficit. Medications Administered Discontinued Medications Generic Name Dose Route Start Last Admin Trade Name Freq PRN Reason Stop Dose Admin Albuterol Sulfate 2.5 mg/ 0 mg 03/17/22 20:00 03/17/22 20:57 Albuterol/Ipratropium 3 ml INHALE 03/17/22 20:01 1 each ONCE ONE Administration Dexamethasone 10 mg 03/17/22 18:46 03/17/22 19:05 Dexamethasone 2 Mg Tablet PO 03/17/22 18:47 10 mg ONCE ONE Administration Guaifenesin/Codeine Phosphate 10 ml 03/17/22 18:46 03/17/22 19:05 Guaifen/Codeine Sf 200/20/10ml 10 Ml Liquid PO 03/17/22 18:47 10 ml ONCE ONE Administration Medical Decision Making Medical Decision Making [facility] Narrative: Patient with. Asthmatic bronchitis chest x-ray negative improved after prednisone and nebulizing treatment Differential Diagnoses: Differential diagnosis (Pn eumonia/bronchitis/interstitial lung disease) Differential Diagnosis: The differential diagnosis associated with the patient?s presentation includes: Lab Attestation: I reviewed the patient's lab results. Discharge Plan Discharge Clinical Impression: Sarcoidosis, Acute bronchitis Patient Disposition: Home, Self-Care Instructions: Acute Bronchitis (ED), Sarcoidosis (ED) Additional Instructions: Use inhalers as prescribed Prednisone as prescribed, take cough syrup for cough Prescriptions: New prednisone 20 mg tablet 40 mg PO DAILY Qty: 10 0RF codeine-guaifenesin 10-100 mg/5 mL liquid 10 ml PO Q6H PRN (Reason: cough) Qty: 237 0RF No Action oseltamivir [Tamiflu] 30 mg capsule 30 mg PO BID 5 Days Qty: 10 0RF levothyroxine 112 mcg capsule 112 mcg PO DAILY ascorbate calcium (vitamin C) 500 mg tablet 500 mg PO DAILY multivitamin Tablet 1 tab PO DAILY ipratropium-albuterol 0.5 mg-3 mg(2.5 mg base)/3 mL solution for nebulization 3 ml inhalation ONCE Qty: 3 0RF clobetasol 0.05 % ointment topical albuterol sulfate 90 mcg/actuation HFA aerosol inhaler 2 inh inhalation Q6H PRN (Reason: shortness of breath or wheezing) 30 Days Qty: 18 12RF Stand Alone Forms: Work/School Release Interventions: ED Discharge Assessment Last Done: 03/17/22 21:34 Discharge Date/Time: 03/17/22 21:47
[2022-03-17 19:04] VITALS: BP 152/74; PULSE 99; RESP 18; TEMP 37.3; O2SAT 95
[2022-03-17] MEDS: dexAMETHasone 2 MG TABLET 10 MG PO (19:05)
[2022-03-17] MEDS: guaiFEN/Codeine SF 200/20/10ML 10 ML LIQUID PO (19:05)
--- NOTE | 2022-03-17 19:56 | PC.NURSE ---
Care of patient assumed at 1900. She is alert and oriented x3. She is provided with cough medicine and decadron for complaints of a cough and dyspnea. O2 saturations >95% on room air. +dry occasional cough noted. She is able to move all extremities. Call barnes within reach.
[2022-03-17] MEDS: Albuterol Sulfate 2.5 MG, Albuterol/Iprat 2.5/0.5MG 3 ML 3 ML INHALE (20:57)
[2022-03-17 21:00] VITALS: PULSE 70; RESP 20; O2SAT 98
== END 2022-03-17 21:47 | disposition home or self-care (01) ==
PROVIDERS: Student in an Organized Health Care Education/Training Program; Emergency Provider Internal Medicine
DX: D86.9 Sarcoidosis, unspecified (principal); J20.9 Acute bronchitis, unspecified; R06.02 Shortness of breath; R05.9 Cough, unspecified; Z20.822 Contact with and (suspected) exposure to COVID-19; Z79.899 Other long term (current) drug therapy
CPT/HCPCS: 0241U; 36415; 71046; 80053; 85025; 94640; 99284; J8540

== ENCOUNTER → 2022-05-04 15:30 | Outpatient (BNVA) | payer MEDICARE, MEDICAID, SELFPAY | PROVIDERS: PCP Internal Medicine; Visit Provider Hospitalist | DX: G47.33 Obstructive sleep apnea (adult) (pediatric) (principal); R91.8 Other nonspecific abnormal finding of lung field; D86.9 Sarcoidosis, unspecified; Z99.89 Dependence on other enabling machines and devices | CPT/HCPCS: 99212 ==

== ENCOUNTER 2022-11-20 22:22 | Emergency (ER) | payer MEDICARE, MEDICAID, SELFPAY ==
--- NOTE | ~2022-11-20 | XR_ITS ---
EXAMINATION: XR HAND, RIGHT CLINICAL INFORMATION: Fall, pain. COMPARISON: None available. TECHNIQUE: PA, lateral, and oblique views of the right hand. FINDINGS: Obliquely oriented mildly displaced fracture of the distal first phalanx with surrounding soft tissue thickening. No unexpected radiopaque foreign bodies. Moderate multifocal degenerative osteoarthritis with joint space narrowing and subcortical sclerosis more prominent in the distal interphalangeal joints of the fourth and fifth digits. No unexpected radiopaque foreign bodies. XR/XR hand RT 2V IMPRESSION: 1. Fracture of the distal first phalanx. 2. Moderate multifocal degenerative osteoarthritis.
[2022-11-20 22:27] VITALS: BP 127/71; PULSE 78; RESP 16; TEMP 36.7; O2SAT 98; BMI 24.0
--- NOTE | 2022-11-21 00:20 | ED_ITS ---
HPI - Extremity Problem General Chief complaint: Extremity Injury, Upper Stated complaint: hand pain, fall 2 weeks ago Time Seen by Provider: 11/21/22 00:20 Source: patient Mode of arrival: ambulatory Limitations: no limitations History of Present Illness HPI Narrative: Patient is a 67 year old assigned female at with a history of renal disease presenting to the emergency department today with right thumb pain. Patient states that 2 weeks ago she fell and hurt her right thumb but it has continued to bother her. Patient denies any head strike, loss of consciousness, dizziness, lightheadedness, abdominal pain, nausea, vomiting, fever, chills, blurry vision, double vision, loss of vision, chest pain, difficulty breathing, shortness of breath, back pain, night sweats, pain with urination, increased urinary frequency, increased urinary urgency, blood in her urine or stool, syncope or a near syncopal episode, bowel incontinence, bladder incontinence, bowel retention, bladder retention, or any other complaints at this time. MD Complaint: extremity pain Onset (ago): week(s) (2) Pain Consistency: constant Location: right and upper extremity Severity scale (1-10): 4 Quality: aching and dull Radiation: none Relieving factors: nothing Exacerbating factors: range of motion Associated symptoms: denies other symptoms Related Data Home Medications Medication Instructions Recorded Confirmed ascorbate calcium (vitamin C) 500 500 mg PO DAILY 03/29/20 10/28/20 mg tablet levothyroxine 112 mcg capsule 112 mcg PO DAILY 03/29/20 10/28/20 multivitamin 1 tab PO DAILY 03/29/20 10/28/20 clobetasol 0.05 % topical ointment g topical 11/17/21 finasteride 5 mg tablet 5 mg PO DAILY 05/04/22 minoxidil 2.5 mg tablet 1.25 mg PO DAILY 05/04/22 simvastatin 10 mg tablet 10 mg PO BEDTIME 05/04/22 Previous Rx's Medication Instructions Recorded albuterol sulfate 90 mcg/actuation 2 inh inhalation Q6H PRN shortness 11/17/21 aerosol inhaler of breath or wheezing 30 days #18 grams codeine 10 mg-guaifenesin 100 mg/5 10 ml PO Q6H PRN cough #237 mL 03/17/22 mL oral liquid doxycycline hyclate 100 mg capsule 100 mg PO BID 10 days #20 caps 03/18/22 Allergies Allergy/AdvReac Type Severity Reaction Status Date / Time aspirin [ASPIRIN] AdvReac Severe KIDNEY Verified 05/04/22 15:57 FAILURE/KIDNEY PROBLEMS ibuprofen [IBUPROFEN] AdvReac Intermediate KIDNEY Verified 05/04/22 15:57 PROBLEMS Review of Systems Constitutional: Constitutional: Reports no additional constitutional complaints, Denies chills, Denies fever(s) and Denies night sweats Eyes: Eyes: Reports no additional eye complaints, Denies blurry vision, Denies change in vision, Denies diplopia, Denies eye discharge, Denies loss of vision and Denies eye pain ENT: Denies dizziness Cardiovascular: Cardiovascular: Reports no additional cardiovascular complaints, Denies chest pain, Denies lightheadedness, Denies Loss of Consciousness and Denies dyspnea Respiratory: Respiratory: Reports no additional respiratory complaints and Denies dyspnea Gastrointestinal: Gastrointestinal: Reports no additional gastrointestinal complaints, Denies abdominal pain, Denies melena, Denies hematochezia, Denies change in bowel habits and Denies change in stool character Genitourinary: Genitourinary: Denies hematuria, Denies urinary frequency, Denies dysuria, Denies urinary incontinence, Denies urinary hesitancy and Denies urinary urgency Musculoskeletal: Musculoskeletal: Reports no additional musculoskeletal complaints, Denies numbness and Denies tingling Comments: right thumb pain Neurologic: Denies dizziness, Denies loss of vision, Denies numbness and Denies tingling Psychiatric: Psychiatric: Reports no additional psychiatric complaints Endocrine: Endocrine: Reports no additional endocrine complaints Hematologic/Lymphatic: Hematologic/Lymphatic: Reports no additional hematologic/lymphatic complaints Allergic/Immunologic: Allergic/Immunologic: Reports no additional allergic/immunologic complaints [facility] Past Medical History Attestation statement: The following information was validated with the patient. Source: old records reviewed and nursing notes reviewed Medical History Bronchopneumonia Chronic renal disease COVID-19 ADELINA on CPAP Pulmonary nodules Reactive airway disease with wheezing with acute exacerbation Sarcoidosis Social History Social History Patient Tobacco Use Status: Never used Tobacco Advance Directives: No Advance Directives Information Provided: Yes Physical Exam Vital Signs: Vital Signs: Last Vital Signs Temp 97.7 F 11/21/22 00:23 Pulse 71 08/12/23 00:23 Resp 16 11/21/22 00:23 BP 139/81 11/21/22 00:23 Pulse Ox 98 11/21/22 00:23 O2 Del Method Room Air 11/21/22 00:23 BMI result Body Mass Index 24.0 Const: General: cooperative, no acute distress, alert and awake Nutritional Appearance: well nourished Orientation/consciousness: patient oriented x3 Limitations: no limitations HEENT: Head: Yes normal to inspection and Yes atraumatic Ears: hearing grossly normal bilaterally and external ears normal General nose exam: Normal external nose present, no nasal discharge noted and no epistaxis Face and sinus: Yes normal facial exam, No abrasion and No laceration Mouth: Normal oral and palatal mucosa present, no drooling and no muffled voice Eyes: General: appearance normal, both eyes and all related structures Periorbital: periorbital findings normal Eyelids: Yes eyelids normal Conjunctivae: conjunctivae normal Pupils: Equal, round and reactive pupils present EOM: EOMs intact bilaterally Neck: Neck: Yes normal visual inspection, Yes full ROM and Yes no lymphadenopathy Chest: Chest palpation & inspection: normal inspection of the chest Resp: Effort & Inspection: normal respiratory effort and able to speak in complete sentences GI: Inspection: Yes normal to inspection Neuro: General: patient oriented x3 and moves all extremities Cranial nerves: Yes Equal, round and reactive pupils present Cognition (Neuro): normal cognition Motor exam (neuro): 5/5 motor strength present throughout Sensory Exam: Normal double simultaneous stimulation for sensation Coordina tion: [id number] test normal Extrem: Other: minimal swelling to the right thumb General: Yes full ROM and Yes capillary refill normal Psych: Appearance: grossly normal Mental Status: mental status grossly normal Affect: normal affect Attitude: cooperative Thought process: Normal thought process present Thought content: Normal thought content present Insight: Good insight present (Psych) Medical Decision Making Medical Decision Making MDM Narrative: Patient is a 67 year old assigned female at with a history of kidney disease presenting to the emergency department today with right thumb pain. Patient's physical exam showed swelling to the right thumb but was otherwise unremarkable. Patient's right hand x-ray showed a fracture of the distal first phalanx. I explained my physical exam findings as well as all test results to the patient. I answered all questions asked by the patient. Patient was placed in a finger splint, without incident. Patient's PMS was intact prior to and after splint placement. I stressed the importance of the patient taking her medication as prescribed. I stressed the importance of the patient following up with her primary care provider and an orthopedic provider. I stressed the importance of the patient returning to the emergency department immediately if her symptoms were to worsen or if she were to develop any dizziness, shortness of breath, difficulty breathing, chest pain, blurry vision, loss of vision, nausea, vomiting, abdominal pain, fever, chills, back pain, or any other complaints. Patient verbalized agreement and understanding with this treatment plan and discharge. Differential Diagnosis Differential Diagnoses: The differential diagnosis associated with the presentation includes Thumb sprain Thumb strain Thumb fracture Independent Interpretation I performed an independent interpretation of an: Plain X-Ray Interpretation: My interpretation is in agreement with the radiologist's impression of this imaging study. EXAMINATION: XR HAND, RIGHT CLINICAL INFORMATION: Fall, pain.? COMPARISON: None available.? TECHNIQUE: PA, lateral, and oblique views of the right hand. FINDINGS: Obliquely oriented mildly displaced fracture of the distal first phalanx with surrounding soft tissue thickening. No unexpected radiopaque foreign bodies. Moderate multifocal degenerative osteoarthritis with joint space narrowing and subcortical sclerosis more prominent in the distal interphalangeal joints of the fourth and fifth digits. No unexpected radiopaque foreign bodies.? XR/XR hand RT 2V IMPRESSION: 1.? Fracture of the distal first phalanx. 2.? Moderate multifocal degenerative osteoarthritis. Dictated By: Leigha Correa Signed By: Electronically signed by Leigha Correa 11/20/22 3407 Radiology Impression Discussion of test interpretation with radiology: I have reviewed the radiologist's reading. Procedures Orthopedic Splinting/Casting Injury #1: Side: right Upper Extremity Injury Location: finger (thumb) Upper Extremity Immobilizer: finger (other) Discharge Plan Discharge Clinical Impression: Fracture of thumb Patient Disposition: Home, Self-Care Instructions: Finger Fracture (ED) Additional Instructions: Follow up with your primary care provider and an orthopedic provider. Return to the emergency department immediately if your symptoms worsen or if you develop any dizziness, shortness of breath, difficulty breathing, chest pain, blurry vision, loss of vision, nausea, vomiting, abdominal pain, fever, chills, back pain, or any other complaints. Celso un seguimiento con patel proveedor de atenci?n primaria y un proveedor ortop?dico. Regrese al departamento de emergencias de inmediato si carol s?ntomas empeoran o si presenta mareos, falta de aire, dificultad para respirar, dolor de pecho, visi?n borrosa, p?rdida de la visi?n, n?useas, v?mitos, dolor abdominal, fiebre, escalofr?os, dolor de espalda o cualquier otras quejas. Prescriptions: No Action doxycycline hyclate 100 mg capsule 100 mg PO BID 10 Days Qty: 20 0RF codeine-guaifenesin 10-100 mg/5 mL liquid 10 ml PO Q6H PRN (Reason: cough) Qty: 237 0RF levothyroxine 112 mcg capsule 112 mcg PO DAILY ascorbate calcium (vitamin C) 500 mg tablet 500 mg PO DAILY multivitamin Tablet 1 tab PO DAILY ipratropium-albuterol 0.5 mg-3 mg(2.5 mg base)/3 mL solution for nebulization 3 ml inhalation ONCE Qty: 3 0RF clobetasol 0.05 % ointment topical albuterol sulfate 90 mcg/actuation HFA aerosol inhaler 2 inh inhalation Q6H PRN (Reason: shortness of breath or wheezing) 30 Days Qty: 18 12RF simvastatin 10 mg tablet 10 mg PO BEDTIME minoxidil 2.5 mg tablet 1.25 mg PO DAILY finasteride 5 mg tablet 5 mg PO DAILY Referrals: [facility] [Provider Group] (Call to establish and follow up with an orthopedic provider. Llame para establecer y hacer un seguimiento con un proveedor ortop?dico.) Petra Melton MD [Primary Care Provider] - Stand Alone Forms: Work/School Release Discharge Date/Time: 11/21/22 00:56 Print Language: English
[2022-11-21 00:23] VITALS: BP 139/81; PULSE 71; RESP 16; TEMP 36.5; O2SAT 98
== END 2022-11-21 00:56 | disposition home or self-care (01) ==
PROVIDERS: Emergency Provider Emergency Medicine; PCP Internal Medicine
DX: S62.521A Displaced fracture of distal phalanx of right thumb, initial encounter for closed fracture (principal); W19.XXXA Unspecified fall, initial encounter; Y93.9 Activity, unspecified; Y92.9 Unspecified place or not applicable; Y99.9 Unspecified external cause status; M79.641 Pain in right hand
CPT/HCPCS: 73120; 99282; 99283

== ENCOUNTER 2022-11-26 14:21 | Outpatient (AMB) | payer MEDICARE, MEDICAID, SELFPAY ==
[2022-11-26 14:31] VITALS: BMI 24.0
--- NOTE | 2022-11-26 14:31 | A.OFFVIS_ITS ---
Intake Vital Signs 11/26/22 14:31 Height 5 ft 4 in Weight 140 lb BMI 24.0 Intake Visit Reasons: FC - RT Thumb fx, DOI 10/2022 Intake Note: Kendal is a 67 year old left hand dominant female who presents today for her ED follow up visit for her right thumb fx, DOI 10/16/2022. Patient reports she tripped and fell landing on her right hand while in [place]. Seen in ED where xrays were taken and a fracture was confirm. States she was not given any brace/splint in ED and sent home. Currently states she continues to have pain when she uses her thumb. Allergies aspirin [ASPIRIN] Adverse Reaction (Severe, Verified 11/26/22 14:39) KIDNEY FAILURE/KIDNEY PROBLEMS ibuprofen [IBUPROFEN] Adverse Reaction (Intermediate, Verified 11/26/22 14:39) KIDNEY PROBLEMS HPI FC - RT Thumb fx, DOI 10/2022 HPI Details 67-year-old left hand dominant female who presents in the office today, as a new patient, for an evaluation of right hand pain. The patient presented to the ED on 11/21/2022 status post a fall in [place] which occurred 2 weeks prior to presentation. X-rays of the right hand were obtained. The thumb was immobilized and she was referred to Orthopedics. She states in the office today that she was not given a brace or splint in the ED when she was sent home. She states she continues to have pain with use of the thumb. [facility] Medical History Bronchopneumonia Chronic renal disease COVID-19 ADELINA on CPAP Pulmonary nodules Reactive airway disease with wheezing with acute exacerbation Sarcoidosis Social History (Updated 11/26/22 @ 14:39 by Meaghan Collier [facility]) Patient Tobacco Use Status: Never used Tobacco Current occupational status: retired Current occupation: left hand Review of Systems Const All systems reviewed & are unremarkable except as noted in HPI and below Physical Exam Vital Signs: BMI result Body Mass Index 24.0 Const General: cooperative and no acute distress Orientation/consciousness: patient oriented x3 Resp Effort & Inspection: normal respiratory effort and able to speak in complete sentences Cardio Peripheral pulses: Peripheral pulses 2+ throughout Skin General skin exam: no rashes or lesions noted Neuro General: patient oriented x3 Extrem Other: Right thumb: Normal to inspection. No ecchymosis, erythema, or edema. Slight tenderness to palpation distal phalanx. No nail bed disruption. Able to flex and extend at the IP and CMC joint. NVI. Office Procedures Fracture Care Fracture Billing Code: Fracture Billing Code Assessment & Plan Assessment & Plan (1) Fracture of distal phalanx of right thumb: Code(s): S62.521A - Displaced fracture of distal phalanx of right thumb, initial encounter for closed fracture Plan Ms. Kiran Rogers is a 67-year-old left hand dominant female who presents in the office today, as a new patient, for an evaluation of right hand pain. The patient presented to the ED on 11/21/2022 status post a fall in [place] which occurred 2 weeks prior to presentation. X-rays of the right hand were obtained. The thumb was immobilized and she was referred to Orthopedics. She states in the office today that she was not given a brace or splint in the ED when she was sent home. She states she continues to have pain with use of the thumb. The patient was educated to perform no pinching gestures. She was placed in a finger splint that immobilizes her from the IP joint distally, leaving the IP joint free, off the shelf, while in the office today. She will remove the brace in 2 weeks. Follow up will be in 4 weeks with repeat x-rays, or sooner if needed. X-rays of the right hand, obtained on 11/21/2022, revealed: 1. Fracture of the distal first phalanx. 2. Moderate multifocal degenerative osteoarthritis. Patient Instructions: Scribed for Dayna Marcelo PA-C by ry Amos scribe, on 11/26/2022 at 3:08 pm, EST. Coding Level of Care Code New Pt Level 4 (56442) Diagnoses Fracture of distal phalanx of right thumb S62.521A CPT Codes Fracture Care - Fracture Billing Code: Fracture Billing Code ([id number])
== END 2022-11-26 15:23 | disposition home or self-care (01) ==
PROVIDERS: PCP Internal Medicine; Visit Provider Physician Assistant
DX: S62.521A Displaced fracture of distal phalanx of right thumb, initial encounter for closed fracture (principal)
CPT/HCPCS: 26750; 99204

== ENCOUNTER → 2022-11-26 14:21 | Outpatient (BNVA) | payer MEDICARE, MEDICAID, SELFPAY | PROVIDERS: PCP Internal Medicine; Visit Provider Physician Assistant | DX: S62.521A Displaced fracture of distal phalanx of right thumb, initial encounter for closed fracture (principal) | CPT/HCPCS: 99202 ==

== ENCOUNTER 2022-12-24 17:27 | Outpatient (REF) | payer MEDICARE, MEDICAID, SELFPAY | END 2022-12-24 17:28 | disposition home or self-care (01) | LOC: HO.HOSX 17:27 | PROVIDERS: Visit Provider Physician Assistant | DX: Z13.89 Encounter for screening for other disorder (principal) ==

== ENCOUNTER 2023-01-08 17:48 | Emergency (ER) | payer MEDICARE, MEDICAID, SELFPAY ==
--- NOTE | ~2023-01-08 | XR_ITS ---
EXAMINATION: XR CHEST CLINICAL INFORMATION: Shortness of breath. COMPARISON: 03/17/2022. TECHNIQUE: 2 views of the chest were obtained. FINDINGS: The cardiomediastinal silhouette is normal. There is no focal lung consolidation or pleural effusion. The bony structures and soft tissues are unremarkable. XR/XR chest 2V IMPRESSION: No active cardiopulmonary disease. No significant change.
[2023-01-08 18:05] VITALS: BP 142/85; PULSE 84; RESP 18; TEMP 36; O2SAT 98; BMI 26.2
--- NOTE | 2023-01-08 18:09 | ED_ITS ---
HPI - URI/Sore Throat General Chief Complaint: Upper Respiratory Symptoms Stated Complaint: SOB/Headache Time Seen by Provider: 01/08/23 18:20 Source: patient and old records reviewed Mode of arrival: ambulatory Limitations: no limitations History of Present Illness HPI Narrative: 67 yo female with PMH of ADELINA, CKD, sarcoidosis, bronchitis here with c/o cough and yellow sputum and feeling short of breath x 1 week. No fevers. She notes she usually gets a bronchitis with season changes. She does not have an INH at home right now. She notes no chest pain at this time. MD elicited complaint: cough Pertinent past history: other (bronchitis) Onset (ago): week(s) (1) Consistency: intermittent Severity: mild Description of mucous: yellow Able to tolerate fluids by mouth: Yes Exacerbating factors: other (coughing) Relieving factors: nothing Associated symptoms: cough and shortness of breath Treatments prior to arrival: none Related Data Home Medications Medication Instructions Recorded Confirmed ascorbate calcium (vitamin C) 500 500 mg PO DAILY 03/29/20 10/28/20 mg tablet levothyroxine 112 mcg capsule 112 mcg PO DAILY 03/29/20 10/28/20 multivitamin 1 tab PO DAILY 03/29/20 10/28/20 clobetasol 0.05 % topical ointment g topical 11/17/21 finasteride 5 mg tablet 5 mg PO DAILY 05/04/22 minoxidil 2.5 mg tablet 1.25 mg PO DAILY 05/04/22 simvastatin 10 mg tablet 10 mg PO BEDTIME 05/04/22 Previous Rx's Medication Instructions Recorded albuterol sulfate 90 mcg/actuation 2 inh inhalation Q6H PRN shortness 11/17/21 aerosol inhaler of breath or wheezing 30 days #18 grams codeine 10 mg-guaifenesin 100 mg/5 10 ml PO Q6H PRN cough #237 mL 03/17/22 mL oral liquid doxycycline hyclate 100 mg capsule 100 mg PO BID 10 days #20 caps 03/18/22 doxycycline hyclate 100 mg capsule 100 mg PO BID 7 days #14 caps 01/08/23 Allergies Allergy/AdvReac Type Severity Reaction Status Date / Time aspirin [ASPIRIN] AdvReac Severe KIDNEY Verified 01/08/23 18:05 FAILURE/KIDNEY PROBLEMS ibuprofen [IBUPROFEN] AdvReac Intermediate KIDNEY Verified 01/08/23 18:05 PROBLEMS Review of Systems Review of Systems: Constitutional : No Fever, No Chills ENT/Mouth : No Hoarseness, No sore throat, No Rhinorrhea Eyes: No Redness, No Discharge, No Vision Changes Cardiovascular : No Chest Pain, positive SOB, positive Dyspnea on Exertion, No Edema Respiratory : positive Cough, pos Sputum, positive Wheezing, Gastrointestinal : No Nausea, No Vomiting, No Diarrhea, No abdominal Pain Genitourinary : No Dysuria, No Hematuria Musculoskeletal : No joint pain, No Myalgias Skin : No rash Neuro : No Weakness, No Numbness, No Headache Psych : No anxiety, depression All other systems reviewed and are negative [facility] Past Medical History Attestation statement: The following information was validated with the patient. 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 Oriented X3. No acute distress. Eyes: Pupils equal, round and reactive to light. ENT: Pharynx normal. Neck: Normal inspection. Neck supple. CVS: Normal heart rate and rhythm. Pulses normal. Respiratory: No respiratory distress. Breath sounds normal. Abdomen: Soft and nontender. Skin: Skin warm and dry. Normal skin color. Normal skin turgor. Extremities: No lower extremity edema. No calf ttp Neuro: Oriented X 3. No motor deficit. No sensory deficit. Course Course Course Narrative: This is an RME: Additional HPI, ROS, PE not included below will be deferred to primary provider. Patient is a 67-year-old female who presents emergency department for evaluation of cough, intermittent shortness of breath and headache the past. Endorses this feels consistent with prior episodes of bronchitis. Speaking clear full sentenses, no distress. Plan: viral testing, XR Medical Decision Making Medical Decision Making [facility] [place] Narrative: 67 yo female with PMH of ADELINA, CKD, sarcoidosis, bronchitis here with c/o 1 week of dyspnea and sputum production with cough. She has hx of same in past. No fevers, not toxic, no hypoxia, no chest pain at this time suspect bronchitis - doesn't really like or want prednisone. Will give INH. Obtain CXR and viral swabs DC home on doxy - doubt ACS or PE. Differential Diagnosis Differential Diagnoses: The differential diagnosis associated with the presentation includes bronchitis, pneumonia Admission/Observation Consideration of admission/observation: Escalation of care including admission/observation considered not toxic, no hypoxia stable for outpatient management Lab Data [facility] [place] Lab Attestation statement: I reviewed the patient's lab results. Independent Interpretation I performed an independent interpretation of an: Plain X-Ray (no pneumonia) Radiology Impression Discussion of test interpretation with radiology: I have reviewed the radiologist's reading. External Record Review External record reviewed: Inpatient record Prescription Management I considered prescription management with: Antibiotic and Other Discharge Plan Discharge Clinical Impression: Bronchitis Patient Disposition: Home, Self-Care Instructions: Acute Bronchitis (ED) Additional Instructions: no covid, flu or pneumonia. likely bronchitis. take a probiotic while on ant ibiotic. you can take inhaler 2 puffs every 4 hours as needed for shortness of breath. return for worsening breathing, pain, fevers, or any other concerns. you stated you do not like steroids - these can help you may want to talk to your lung doctor if you are not improving. nada de covid, gripe o neumon?a. probablemente bronquitis. [place] un probi?amanda mientras elma antibi?ticos. Puede realizar 2 inhalaciones del inhalador cada 4 horas seg?n sea necesario para la dificultad para respirar. Regrese si empeora la respiraci?n, dolor, fiebre o cualquier otra inquietud. Usted dijo que no le gustan los esteroides; estos pueden ayudarlo. Es posible que desee hablar con patel m?dico pulmonar si no mejora. Prescriptions: New doxycycline hyclate 100 mg capsule 100 mg PO BID 7 Days Qty: 14 0RF No Action doxycycline hyclate 100 mg capsule 100 mg PO BID 10 Days Qty: 20 0RF codeine-guaifenesin 10-100 mg/5 mL liquid 10 ml PO Q6H PRN (Reason: cough) Qty: 237 0RF levothyroxine 112 mcg capsule 112 mcg PO DAILY ascorbate calcium (vitamin C) 500 mg tablet 500 mg PO DAILY multivitamin Tablet 1 tab PO DAILY ipratropium-albuterol 0.5 mg-3 mg(2.5 mg base)/3 mL solution for nebulization 3 ml inhalation ONCE Qty: 3 0RF clobetasol 0.05 % ointment topical albuterol sulfate 90 mcg/actuation HFA aerosol inhaler 2 inh inhalation Q6H PRN (Reason: shortness of breath or wheezing) 30 Days Q ty: 18 12RF simvastatin 10 mg tablet 10 mg PO BEDTIME minoxidil 2.5 mg tablet 1.25 mg PO DAILY finasteride 5 mg tablet 5 mg PO DAILY Print Language: Syriac
[2023-01-08] MEDS: Albuterol Sulfate 90 MCG 8 GM INHALER 2 PUFF INHALE (18:53)
[2023-01-08 18:55] LABS: COVID-19 Test Negative (Negative); IDNOW Serial# BCCEAD1C
[2023-01-08 18:55] LABS: IDNOW Serial# 9DB6401D; Influenza A Negative (Negative); Influenza B2 Negative (Negative)
== END 2023-01-08 19:47 | disposition home or self-care (01) ==
PROVIDERS: Nurse Practitioner Family; Emergency Provider Emergency Medicine; PCP Internal Medicine
DX: J40 Bronchitis, not specified as acute or chronic (principal); Z20.822 Contact with and (suspected) exposure to COVID-19; R06.02 Shortness of breath
CPT/HCPCS: 71046; 87502; 87635; 99282; 99284

== ENCOUNTER 2023-01-19 10:51 | Outpatient (REF) | payer MEDICARE, SELFPAY ==
--- NOTE | ~2023-01-19 | XR_ITS ---
EXAMINATION: XR CHEST CLINICAL INFORMATION: Cough. COMPARISON: January 08, 2023. TECHNIQUE: 2 views of the chest were obtained. FINDINGS: No significant abnormality is noted involving the heart, lungs, mediastinum, bony thorax or soft tissues. XR/XR chest 2V IMPRESSION: Normal chest PA and lateral.
== END 2023-01-19 10:52 | disposition home or self-care (01) ==
LOC: HO.XRAY 10:51
PROVIDERS: PCP Internal Medicine; Visit Provider Hospitalist
DX: R05.3 Chronic cough (principal); G47.33 Obstructive sleep apnea (adult) (pediatric); Z99.89 Dependence on other enabling machines and devices; R91.8 Other nonspecific abnormal finding of lung field; D86.9 Sarcoidosis, unspecified
CPT/HCPCS: 71046; 99212

== ENCOUNTER 2023-01-19 10:51 | Outpatient (AMB) | payer MEDICARE, SELFPAY ==
[2023-01-19 11:00] VITALS: PULSE 83; O2SAT 96; BMI 23.9
--- NOTE | 2023-01-19 11:00 | MHC.OFFVIS ---
Intake Vital Signs 01/19/23 11:00 Height 5 ft 4 in Weight 139 lb BMI 23.9 Pulse 83 Pulse Source Pulse Oximeter Pulse Oximetry (%) 96 Oxygen Delivery Method Room Air Intake Visit Reasons: sarcoidosis Central Supply Assistant Required: No Allergies aspirin [ASPIRIN] Adverse Reaction (Severe, Verified 01/19/23 11:01) KIDNEY FAILURE/KIDNEY PROBLEMS ibuprofen [IBUPROFEN] Adverse Reaction (Intermediate, Verified 01/19/23 11:01) KIDNEY PROBLEMS doxycycline Adverse Reaction (Mild, Verified 01/19/23 11:09) Gastrointestinal Upset HPI HPI Comments History of Present Illness Details The patient is a 67-year-old woman known history of pulmonary nodules and lymphadenopathy due to sarcoidosis. She has been followed very closely with yearly CAT scans and her last CT scan was done at at [place]. I do not have the results. 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 She has been having increasing daytime drowsiness. She does have headaches at times. She has also noticed some palpitations. Her Kennard score is elevated 03/05. At this point the patient needs to have a sleep study. Will also address the palpitations specially with a history of sarcoidosis. We did talk about her blood work her Julio level was normal, but, her calcium was high normal. Will retest her at this time. The patient continues to have some shortness of breath with activity. Mild in severity. Does get better with rest. She is not using any inhalers at this time. Palpitations are indeed better. At this point will follow up after her blood work and also after her sleep study. 11/17/2021 The patient has a telehealth visit today. Overall she is feeling a lot better. She completed the prednisone and also the antibiotics. She does not have any residual symptoms. Her last chest x-ray was reassuring without any evidence of pneumonia. That was back in August. Her last CT scan was back in March 2021 demonstrating multiple pulmonary nodules. Will consider repeating the CT scan I year from her last 1. In the meantime she does feel some shortness of breath at times. She relates that to the fact that she is not going to the gym as regularly. She does not have a rescue inhaler at this time. I will make sure to send went to the pharmacy. We also talked about considering maintenance inhalers with inhaled cortical steroid if indeed the rescue short-acting beta agonist is not sufficient in the meantime she continues use her CPAP regularly. The CPAP therapy continues to be affecting beneficial. She does use it for more than 4 hours a night. She has been getting supplies regularly. 05/04/2022 the patient is here for a pulmonary follow-up visit. Overall the patient is doing a lot better. Back in March she developed influenza a. It was complicated by bronchitis and also significant bronchospasms and reactive airway disease. The patient was given Tamiflu and also given a course of prednisone. She also ultimately required antibiotics. After a prolonged period of time the patient did start getting better. Now she is back to her baseline. We did review her CT scan of the chest that she had prior to getting sick in February. This CT scan demonstrated a relatively normal CT scan without any significant interstitial changes. Significantly improved mosaic pattern. And no other abnormalities noted. This is very stable CT scan. No additional CT scans warranted at this time. In addition to that she had blood work demonstrating interval improvement in renal function now back to normal. She does follow closely with Nephrology regarding the renal insufficiency issues that she has had in the past. Clinically she is doing a lot better this time. Will plan to follow-up in the Fall with pulmonary function studies. The patient also continues use her CPAP every night. CPAP therapy continues to be affecting beneficial. She does use it for more than 4 hours a night. 01/19/2023 the patient is here for a sick visit. Apparently she [facility] until couple weeks ago when she started developing worsening cough nasal congestion and then went down to her chest. She went to urgent care here at [place]. She had an x-ray demonstrating no acute disease. She was diagnosed with bronchitis and was given a course of doxycycline. However, she ended up with significant nausea and she could not finish the course. She still feels not quite well. She is complaining of chest tightness and also cough. Her exam she is relatively unremarkable she does have diminished breath sounds but I do not appreciate any crackles or rales. I did review her last x-ray without any acute disease will go ahead and request a repeat 1 to make sure that all as well. Also change her antibiotics. I do not think she needs prednisone at this time she can always call if her symptoms worsen. She does need to use her nebulizer a couple times a day. [facility] Medical History COVID-19 Reactive airway disease with wheezing with acute exacerbation Bronchopneumonia Chronic renal disease ADELINA on CPAP Pulmonary nodules Sarcoidosis Social History Patient Tobacco Use Status: Never used Tobacco Current occupational status: retired Current occupation: left hand Review of Systems Const Denies chills, Denies fatigue, Denies fever(s) and Denies night sweats ENT Denies change in voice, Denies lip swelling, Denies mouth pain, Denies nasal congestion, Denies nasal discharge and Denies tongue swelling Card Denies chest pain, Denies dyspnea and Denies dyspnea on exertion Resp Reports chest congestion, Denies cough, Denies dyspnea, Denies dyspnea on exertion and Reports wheezing GI Denies abdominal pain Musc Denies no additional complaints Neuro Denies Neuro-related abnormal movements Psych Denies no additional complaints Endo Denies fatigue Medardo/Lymph Denies easy bleeding and Denies lymphadenopathy Aller/Immun Denies lip swelling, Denies tongue swelling and Reports wheezing Physical Exam Vital Signs: Last Vital Signs Pulse 83 01/19/23 11:00 Pulse Ox 96 01/19/23 11:00 Oxygen Delivery Method Room Air 01/19/23 11:00 BMI result Body Mass Index 23.9 Const General: cooperative and alert Orientation/consciousness: patient oriented x3 Neck Neck: Yes normal visual inspection, Yes full ROM and Yes no lymphadenopathy Chest Chest palpation & inspection: normal inspection of the chest Resp Effort & Inspection: normal respiratory effort and prolonged expiratory phase Auscultation: no crackles, no rhonchi, no wheezes and diminished lung sounds Cardio Rate: regular rate Rhythm: regular rhythm Heart sounds: S1 normal heart sound present and S2 normal heart sound present GI Palpation (GI): Soft to palpation and nontender Auscultation: normal bowel sounds Skin General skin exam: rashes and/or lesions noted Neuro General: patient oriented x3 Assessment & Plan Assessment & Plan (1) Cough: Code(s): R05.9 - Cough, unspecified Qualifiers: Cough type: chronic Qualified Code(s): R05.3 - Chronic cough (2) ADELINA on CPAP: Code(s): G47.33 - Obstructive sleep apnea (adult) (pediatric); Z99.89 - Dependence on other enabling machines and devices (3) Pulmonary nodules: Comment: due to the sarcoid. Still monitoring for any progression Code(s): R91.8 - Other nonspecific abnormal finding of lung field (4) Sarcoidosis: Comment: with renal invovement. Appears to be stable. Code(s): D86.9 - Sarcoidosis, unspecified Plan MARTINEZ as needed continue APAP therapy CXR start Azithromycin Prednisone if no better F/U in 6 months Orders: Orders XR chest 2V Today R05.9 - Cough, unspecified Medications: New albuterol sulfate 90 mcg/actuation 2 inhalations inhalation Q6H 30 days PRN 18 grams 12RF shortness of breath or wheezing J44.9 - Chronic obstructive pulmonary disease, unspecified azithromycin 500 mg PO DAILY 5 days 5 tabs 0RF Coding Level of Care Code Est Pt Level 4 (87616) Diagnoses Chronic cough R05.3 Cough type: chronic ADELINA on CPAP G47.33; Z99.89 Pulmonary nodules R91.8 Sarcoidosis D86.9 Time Spent (min) 16
== END 2023-01-19 11:14 | disposition home or self-care (01) ==
PROVIDERS: PCP Internal Medicine; Visit Provider Hospitalist
DX: R05.3 Chronic cough (principal); G47.33 Obstructive sleep apnea (adult) (pediatric); Z99.89 Dependence on other enabling machines and devices; R91.8 Other nonspecific abnormal finding of lung field; D86.9 Sarcoidosis, unspecified
CPT/HCPCS: 99214

== ENCOUNTER 2023-03-12 15:47 | Emergency (ER) | payer MEDICARE, OTHER, SELFPAY ==
--- NOTE | ~2023-03-12 | XR_ITS ---
EXAMINATION: XR CHEST CLINICAL INFORMATION: Chest pain. COMPARISON: 01/19/2023. TECHNIQUE: 2 views of the chest were obtained. FINDINGS: The cardiomediastinal silhouette is within normal limits and stable. There is minimal right midlung field scarring similar to previous. There is no focal lung consolidation or pleural effusion. The bony structures and soft tissues are unremarkable. XR/XR chest 2V IMPRESSION: No active cardiopulmonary disease. No significant interval change.
--- NOTE | 2023-03-12 15:49 | ECG_ITS ---
Test Reason : CHEST PAIN Blood Pressure : / mmHG Vent. Rate : 079 BPM Atrial Rate : 079 BPM P-R Int : 120 ms QRS Dur : 088 ms QT Int : 356 ms P-R-T Axes : 060 063 042 degrees QTc Int : 408 ms Normal sinus rhythm Normal ECG When compared with ECG of 21-AUG-2021 16:18, No significant change was found Referred By: Generic ED Physician Electronically Signed By:ASHLEY MONTANEZ MD
[2023-03-12 16:07] VITALS: BP 139/74; PULSE 84; RESP 16; TEMP 36.6; O2SAT 96; BMI 23.9
--- NOTE | 2023-03-12 16:07 | ED.CHESTPAIN ---
HPI - Chest Pain General Chief Complaint: Chest Pain Stated Complaint: chest pain,dizziness,h/a Time Seen by Provider: 03/12/23 21:57 Source: patient Mode of arrival: ambulatory Limitations: no limitations History of Present Illness HPI narrative: Patient is 67 years old with no significant cardiac history comes here for 1 week chest pain were sleeve feel very anxious at work stressed out checked the blood pressure at home was 170/100 on arrival her blood pressure was 139/74 patient describes chest pain of mid chest pain diffuse constant, no relation with breathing or movement no cough no syncope episode no palpitation Related Data Home Medications Medication Instructions Recorded Confirmed ascorbate calcium (vitamin C) 500 500 mg PO DAILY 03/29/20 10/28/20 mg tablet levothyroxine 112 mcg capsule 112 mcg PO DAILY 03/29/20 10/28/20 multivitamin 1 tab PO DAILY 03/29/20 10/28/20 clobetasol 0.05 % topical ointment g topical 11/17/21 finasteride 5 mg tablet 5 mg PO DAILY 05/04/22 minoxidil 2.5 mg tablet 1.25 mg PO DAILY 05/04/22 simvastatin 10 mg tablet 10 mg PO BEDTIME 05/04/22 Previous Rx's Medication Instructions Recorded albuterol sulfate 90 mcg/actuation 2 inh inhalation Q6H PRN shortness 11/17/21 aerosol inhaler of breath or wheezing 30 days #18 grams albuterol sulfate 90 mcg/actuation 2 inh inhalation Q6H PRN shortness 01/19/23 aerosol inhaler of breath or wheezing 30 days #18 grams azithromycin 500 mg tablet 500 mg PO DAILY 5 days #5 tabs 01/19/23 lorazepam 1 mg tablet (Ativan) 1 mg PO BEDTIME PRN anxiety/sleep 03/12/23 #10 tabs Allergies Allergy/AdvReac Type Severity Reaction Status Date / Time aspirin [ASPIRIN] AdvReac Severe KIDNEY Verified 03/12/23 16:07 FAILURE/KIDNEY PROBLEMS ibuprofen [IBUPROFEN] AdvReac Intermediate KIDNEY Verified 03/12/23 16:07 PROBLEMS doxycycline AdvReac Mild Gastrointestinal Verified 03/12/23 16:07 Upset PMFSH Past Medical History Medical History COVID-19 Reactive airway disease with wheezing with acute exacerbation Bronchopneumonia Chronic renal disease ADELINA on CPAP Pulmonary nodules Sarcoidosis Social History Social History Patient Tobacco Use Status: Never used Tobacco Advance Directives: No Advance Directives Information Provided: No Current occupational status: retired 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 Oriented X3. No acute distress. Eyes: PERRLA, No Nystagmus ENT: Pharynx normal. Oral Mucosa moist Neck: Normal inspection. Neck supple. CVS: Normal heart rate and rhythm. Pulses normal. Respiratory: No respiratory distress. Equal air entry bilateral, no wheezing/rales/rhonchi Abdomen: Soft and nontender. Bowel sounds are present, no mass palpable, no CVA tenderness Skin: Skin warm and dry. Normal skin color. Normal skin turgor. Extremities: No lower extremity edema. No calf tenderness Neuro: Oriented X 3. No motor deficit. No sensory deficit.No cerebellar signs , cranial nerves II-XII intact Course Course Course Narrative: This is an RME: Additional HPI, ROS, PE not included below will be deferred to primary provider. Patient is a 67-year-old female who presents emergency department for evaluation of multiple complaints. Symptom onset 1 week ago, all which have been constant in nature but with variable intensity. Reporting headache, dizziness, chest pain, at home with elevated blood pressure w/o diagnosed HTN, SBP 169. Plan: labs, EKG, CXR Medical Decision Making Medical Decision Making MDM Narrative: Patient with multiple complaints likely from stress labs are negative EKG without any ischemic changes patient advised have few days off and follow-up with PCP Differential Diagnosis Differential Diagnoses: The differential diagnosis associated with the presentation includes ACS/anxiety/stress related hypertension/essential hypertension Lab Data [facility] Lab Attestation statement: I reviewed the patient's lab results. 03/12/23 16:26 03/12/23 16:26 Labs: Lab Results 03/12/23 Range/Units 16:26 WBC 7.5 (4.8-10.8) X10*3/uL RBC 4.23 (4.20-5.50) X10*6/uL Hgb 12.9 (12.0-16.0) g/dl Hct 38.4 (37.0-47.0) % MCV 90.8 (80.0-98.0) fL MCH 30.5 (27.0-33.0) pg MCHC 33.6 (31.0-35.0) g/dl RDW 12.2 (11.0-16.0) % Plt Count 301 (160-400) X10*3/uL MPV 9.5 (9.4-12.3) fL Immature Gran % (Auto) 0.3 (0.0-0.4) % Neut % (Auto) 61.4 (45-73) % Lymph % (Auto) 26.6 (20-40) % [place] % (Auto) 8.9 (2-11) % Eos % (Auto) 2.0 (0-4) % Baso % (Auto) 0.8 (0-2) % Lymph # (Auto) 2.0 (1.2-4.9) X10*3/uL [place] # (Auto) 0.7 (0.1-1.2) X10*3/uL Eos # (Auto) 0.2 (0.0-0.4) X10*3/uL Baso # (Auto) 0.1 (0.0-0.2) X10*3/uL Abs Immat Gran (auto) 0.02 (0.00-0.03) X10*3/uL Absolute Neuts (auto) 4.6 (2.0-8.3) x10*3/uL Absolute Nucleated RBC 0.000 (0.0-0.012) X10*3/uL Nucleated RBC % (auto) 0.0 (0.0-0.2) /100WBC PT 11.0 L (11.1-13.3) SEC INR 0.9 (0.9-1.1) Sodium 142 (135-145) mmol/L Potassium 4.0 (3.3-5.1) mmol/L Chloride 107 (96-108) mmol/L Carbon Dioxide 27 (22-29) mmol/L Anion Gap 12 (12-20) BUN 30 H (9-16) mg/dL Creatinine 1.20 (0.5-1.4) mg/dL Estim Creat Clear Calc 38.7 Estimated GFR 45 Random Glucose 92 (60-115) mg/dL Calcium 9.7 (8.4-10.2) mg/dL Magnesium 2.1 (1.6-2.6) mg/dL Total Bilirubin 0.5 (0.0-1.0) mg/dL AST 19 (5-31) U/L ALT 25 (0-31) U/L Alkaline Phosphatase 109 (39-117) U/L Troponin I High Sens < 2.7 (<3.5-17.0) ng/L B-Natriuretic Peptide < 10 (<100) pg/mL Total Protein 7.5 (6.5-8.0) g/dL Albumin 4.0 (3.5-5.0) g/dL Independent Interpretation I performed an independent interpretation of an: EKG Interpretation: Normal sinus rhythm heart rate 79 beats per minute normal interval normal axis no acute ST-T changes no acute ischemia Discharge Plan Discharge Clinical Impression: Anxiety, Chest pain Patient Disposition: Home, Self-Care Instructions: Chest Pain (ED), Anxiety (ED) Additional Instructions: Take medication to relax and sleep Check blood pressure daily at least 2 times a day should be less than 135/85 Decrease salt intake Reviewed blood pressure persistently high talk to your doctor about medications Prescriptions: New lorazepam [Ativan] 1 mg tablet 1 mg PO BEDTIME PRN (Reason: anxiety/sleep) Qty: 10 0RF No Action levothyroxine 112 mcg capsule 112 mcg PO DAILY ascorbate calcium (vitamin C) 500 mg tablet 500 mg PO DAILY multivitamin Tablet 1 tab PO DAILY ipratropium-albuterol 0.5 mg-3 mg(2.5 mg base)/3 mL solution for nebulization 3 ml inhalation ONCE Qty: 3 0RF clobetasol 0.05 % ointment topical albuterol sulfate 90 mcg/actuation HFA aerosol inhaler 2 inh inhalation Q6H PRN (Reason: shortness of breath or wheezing) 30 Days Qty: 18 12RF simvastatin 10 mg tablet 10 mg PO BEDTIME minoxidil 2.5 mg tablet 1.25 mg PO DAILY finasteride 5 mg tablet 5 mg PO DAILY albuterol sulfate 90 mcg/actuation HFA aerosol inhaler 2 inh inhalation Q6H PRN (Reason: shortness of breath or wheezing) 30 Days Qty: 18 12RF azithromycin 500 mg tablet 500 mg PO DAILY 5 Days Qty: 5 0RF Stand Alone Forms: Work/School Release
[2023-03-12 16:35] LABS: MANUAL DIFF FLAG NO
[2023-03-12 16:36] LABS: Basophils Absolute Auto 0.1 X10*3/uL (0.0-0.2); Basophils Percent Auto 0.8 % (0-2); Eosinophils Absolute Auto 0.2 X10*3/uL (0.0-0.4); Hematocrit 38.4 % (37.0-47.0); Hemoglobin 12.9 g/dl (12.0-16.0); Imm Gran Abs Auto 0.02 X10*3/uL (0.00-0.03); Imm Gran Pct Auto 0.3 % (0.0-0.4); Lymphocytes Percent Auto 26.6 % (20-40); Mean Corpuscular HGB Conc 33.6 g/dl (31.0-35.0); Mean Corpuscular Hemoglobin 30.5 pg (27.0-33.0); Mean Corpuscular Volume 90.8 fL (80.0-98.0); Mean Platelet Volume 9.5 fL (9.4-12.3); Monocytes Absolute Auto 0.7 X10*3/uL (0.1-1.2); Monocytes Percent Auto 8.9 % (2-11); Neutrophils Absolute Auto 4.6 x10*3/uL (2.0-8.3); Neutrophils Percent Auto 61.4 % (45-73); Platelet Count 301 X10*3/uL (160-400); Red Blood Count 4.23 X10*6/uL (4.20-5.50); Red Cell Distribution Width 12.2 % (11.0-16.0); White Blood Count 7.5 X10*3/uL (4.8-10.8)
[2023-03-12 16:55] LABS: Alanine Aminotransferase 25 U/L (0-31); Alkaline Phosphatase 109 U/L (39-117); Anion Gap 12 (12-20); Aspartate Amino Transferase 19 U/L (5-31); Bilirubin Total 0.5 mg/dL (0.0-1.0); Blood Urea Nitrogen 30 mg/dL (9-16); Calcium 9.7 mg/dL (8.4-10.2); Carbon Dioxide 27 mmol/L (22-29); Chloride 107 mmol/L (96-108); Creatinine Clr Calc Pharmacy 38.7; Estimated Glomerular Filt Rate 45; Glucose Random 92 mg/dL (60-115); Magnesium 2.1 mg/dL (1.6-2.6); Sodium 142 mmol/L (135-145); Total Protein 7.5 g/dL (6.5-8.0)
[2023-03-12 16:57] LABS: INTERNATIONAL NORM RATIO 0.9 (0.9-1.1)
[2023-03-12 17:05] LABS: Troponin-I High Sensitivity < 2.7 ng/L (<3.5-17.0)
[2023-03-12 18:13] LABS: B Type Natriuretic Peptide < 10 pg/mL (<100)
[2023-03-12 22:00] VITALS: BP 148/81; PULSE 74; RESP 16; TEMP 36.6; O2SAT 96
[2023-03-12 22:07] VITALS: BP 144/69; PULSE 72
[2023-03-12 22:08] VITALS: BP 148/81; PULSE 74
[2023-03-12 22:09] VITALS: BP 155/79; PULSE 80
== END 2023-03-12 22:53 | disposition home or self-care (01) ==
PROVIDERS: Nurse Practitioner Family; Emergency Provider Internal Medicine; PCP Internal Medicine
DX: R07.89 Other chest pain (principal); R06.02 Shortness of breath; R51.9 Headache, unspecified; F41.1 Generalized anxiety disorder; F43.0 Acute stress reaction; Z79.899 Other long term (current) drug therapy
CPT/HCPCS: 36415; 71046; 80053; 83735; 83880; 84484; 85025; 85610; 93005; 99283; 99284

== ENCOUNTER → 2023-03-12 15:49 | Outpatient (BNV) | payer MEDICARE, SELFPAY | PROVIDERS: Emergency Provider Internal Medicine; PCP Internal Medicine; Visit Provider Internal Medicine Cardiovascular Disease | DX: R07.9 Chest pain, unspecified (principal) | CPT/HCPCS: 93010 ==

== ENCOUNTER 2023-04-03 19:43 | Emergency (ER) | payer MEDICARE, OTHER, SELFPAY ==
--- NOTE | ~2023-04-03 | XR_ITS ---
EXAMINATION: XR CHEST CLINICAL INFORMATION: Shortness of breath COMPARISON: 03/12/2023 TECHNIQUE: 2 views of the chest were obtained. FINDINGS: No significant abnormality is noted involving the heart, lungs, mediastinum, bony thorax or soft tissues. XR/XR chest 2V IMPRESSION: Unremarkable examination.
[2023-04-03 19:47] VITALS: BP 131/77; PULSE 77; RESP 18; TEMP 36.4; O2SAT 97; BMI 24.9
[2023-04-03 20:33] LABS: IDNOW Serial# 08D9AD1C; Strep A Nucleic Acid Negative (Negative)
[2023-04-03 20:49] LABS: Influenza A PCR NEGATIVE (Negative); Influenza B PCR NEGATIVE (Negative); Resp Syncy Virus RNA Qual PCR NEGATIVE (Negative); SARS COV2 PCR INHOUSE NEGATIVE (Negative)
--- NOTE | 2023-04-03 22:08 | ED_ITS ---
HPI - URI/Sore Throat General Chief Complaint: Upper Respiratory Symptoms Stated Complaint: headache,cough,body aches Time Seen by Provider: 04/03/23 21:46 Source: patient Mode of arrival: ambulatory Limitations: no limitations History of Present Illness HPI Narrative: 67-year-old female came in for evaluation of upper respiratory symptoms, headache, cough with clear sputum, generalized body ache patient's symptoms started a week ago, patient was exposed to a friend who later tested positive for COVID, no recent travel, no fever, no chills, no history of smoking, no history of asthma or COPD patient once a year to get bronchitis which is similar to her symptoms today. Related Data Home Medications Medication Instructions Recorded Confirmed ascorbate calcium (vitamin C) 500 500 mg PO DAILY 03/29/20 10/28/20 mg tablet levothyroxine 112 mcg capsule 112 mcg PO DAILY 03/29/20 10/28/20 multivitamin 1 tab PO DAILY 03/29/20 10/28/20 clobetasol 0.05 % topical ointment g topical 11/17/21 finasteride 5 mg tablet 5 mg PO DAILY 05/04/22 minoxidil 2.5 mg tablet 1.25 mg PO DAILY 05/04/22 simvastatin 10 mg tablet 10 mg PO BEDTIME 05/04/22 Previous Rx's Medication Instructions Recorded albuterol sulfate 90 mcg/actuation 2 inh inhalation Q6H PRN shortness 11/17/21 aerosol inhaler of breath or wheezing 30 days #18 grams albuterol sulfate 90 mcg/actuation 2 inh inhalation Q6H PRN shortness 01/19/23 aerosol inhaler of breath or wheezing 30 days #18 grams azithromycin 500 mg tablet 500 mg PO DAILY 5 days #5 tabs 01/19/23 lorazepam 1 mg tablet (Ativan) 1 mg PO BEDTIME PRN anxiety/sleep 03/12/23 #10 tabs albuterol sulfate 90 mcg/actuation 2 puff inhalation Q6H PRN 04/03/23 aerosol inhaler shortness of breath or wheezing #8.5 grams Allergies Allergy/AdvReac Type Severity Reaction Status Date / Time aspirin [ASPIRIN] AdvReac Severe KIDNEY Verified 03/12/23 16:07 FAILURE/KIDNEY PROBLEMS ibuprofen [IBUPROFEN] AdvReac Intermediate KIDNEY Verified 03/12/23 16:07 PROBLEMS doxycycline AdvReac Mild Gastrointestinal Verified 03/12/23 16:07 Upset Review of Systems Review of Systems: All other systems are reviewed and are negative Constitutional: Reports as per HPI and Reports no additional constitutional complaints Eyes: Reports as per HPI and Reports no additional eye complaints Reports system reviewed and no additional complaints, except as documented Cardiovascular: Reports as per HPI and Reports no additional cardiovascular complaints Respiratory: Reports as per HPI and Reports no additional respiratory complaints Gastrointestinal: Reports as per HPI and Reports no additional gastrointestinal complaints Genitourinary: Reports no additional female genitourinary complaints Musculoskeletal: Reports no additional musculoskeletal complaints Skin/Breast: Reports system reviewed and no additional complaints, except as docu Psychiatric: Reports no additional psychiatric complaints Endocrine: Reports no additional endocrine complaints Hematologic/Lymphatic: Reports no additional hematologic/lymphatic complaints Allergic/Immunologic: Reports no additional allergic/immunologic complaints Reports system reviewed and no additional complaints, except as documented and Reports Abnormal speech present [facility] Past Medical History Medical History COVID-19 Reactive airway disease with wheezing with acute exacerbation Bronchopneumonia Chronic renal disease ADELINA on CPAP Pulmonary nodules Sarcoidosis Social History Social History Patient Tobacco Use Status: Never used Tobacco Advance Directives: No Advance Directives Information Provided: No Current occupational status: retired Current occupation: left hand Physical Exam Vital Signs: Vital Signs: Last Vital Signs Temp 97.6 F 04/03/23 19:47 Pulse 77 04/03/23 19:47 Resp 18 04/03/23 19:47 BP 131/77 04/03/23 19:47 Pulse Ox 97 04/03/23 19:47 O2 Del Method Room Air 04/03/23 19:47 BMI result Body Mass Index 24.9 Vital signs have been reviewed and appear to be correct. Blood pressure elevated. Heart rate normal. Respiratory rate normal. Temperature normal. Oxygen saturation normal. Appearance: Alert. Oriented X3. No acute distress. Head: Normal external exam. Normocephalic. Atraumatic. No Lu signs noted. No raccoon eyes noted Eyes: PERRLA. EOMI. Conjunctiva and sclera normal. Eyelids normal. ENT: TM's Normal. Pharynx normal. Uvula midline. Moist mucous membranes. No trismus noted. No drooling noted. No muffled voice noted. Neck: Normal inspection. Neck supple. FROM. No adenopathy. Thyroid Normal. No meningeal signs. No neck mass noted. CVS: Normal heart rate and rhythm. Heart sound normal. No murmurs noted. Pulses normal throughout. Respiratory: No respiratory distress. Painless inspiration. Breath sounds normal. No wheezes/rales/rhonchi noted. Chest nontender. No accessory muscle usage noted or decreased air movement noted. Abdomen: Soft and nontender. Bowel sounds normal in all 4 quadrants. No distention noted. No organomegaly noted. No visible injury noted. Back: No CVA tenderness. Full range of motion noted. Skin: Skin warm and dry. Normal skin color. Normal skin turgor. No rashes/lesions/lacerations noted. Extremities: No lower extremity edema. Extremities exhibit normal range of motion. Extremities nontender. Neuro: Oriented X 3. Cranial nerve exam: II-XII are grossly intact No motor deficit. No sensory deficit. Reflexes normal. Course Reevaluation(s) Reevaluation #1: 67-year-old female came in for evaluation of upper respiratory symptoms, patient is prone to bronchitis once a year. Patient has unremarkable workup today. Time: 23:00 Medical Decision Making Differential Diagnosis Differential Diagnoses: The differential diagnosis associated with the presentation includes (Pneumonia, pneumothorax, pleural effusion, COVID, influenza, RSV) Admission/Observation Consideration of admission/observation: Escalation of care including admission/observation considered Lab Data MDM Lab Attestation statement: I reviewed the patient's lab results. Labs: Lab Results 04/03/23 Range/Units 20:03 Influenza Type A (PCR) NEGATIVE (Negative) Influenza Type B (PCR) NEGATIVE (Negative) RSV RNA Qual (PCR) NEGATIVE (Negative) SARS-CoV-2 RNA (RT-PCR) NEGATIVE (Negative) S. pyogenes GrpA [place] Negative (Negative) Independent Interpretation I performed an independent interpretation of an: Plain X-Ray (Chest: No acute thoracic pathology.) Radiology Impression Discussion of test interpretation with radiology: I have reviewed the radiologist's reading. Discharge Plan Discharge Clinical Impression: Upper respiratory infection, Bronchitis Patient Disposition: Home, Self-Care Instructions: Acute Bronchitis (ED) Prescriptions: New albuterol sulfate 90 mcg/actuation HFA aerosol inhaler 2 puff inhalation Q6H PRN (Reason: shortness of breath or wheezing) Qty: 8.5 0RF No Action lorazepam [Ativan] 1 mg tablet 1 mg PO BEDTIME PRN (Reason: anxiety/sleep) Qty: 10 0RF levothyroxine 112 mcg capsule 112 mcg PO DAILY ascorbate calcium (vitamin C) 500 mg tablet 500 mg PO DAILY multivitamin Tablet 1 tab PO DAILY ipratropium-albuterol 0.5 mg-3 mg(2.5 mg base)/3 mL solution for nebulization 3 ml inhalation ONCE Qty: 3 0RF clobetasol 0.05 % ointment topical albuterol sulfate 90 mcg/actuation HFA aerosol inhaler 2 inh inhalation Q6H PRN (Reason: shortness of breath or wheezing) 30 Days Qty: 18 12RF simvastatin 10 mg tablet 10 mg PO BEDTIME minoxidil 2.5 mg tablet 1.25 mg PO DAILY finasteride 5 mg tablet 5 mg PO DAILY albuterol sulfate 90 mcg/actuation HFA aerosol inhaler 2 inh inhalation Q6H PRN (Reason: shortness of breath or wheezing) 30 Days Qty: 18 12RF azithromycin 500 mg tablet 500 mg PO DAILY 5 Days Qty: 5 0RF
--- NOTE | 2023-04-03 22:19 | PC.NURSE ---
pt assessed, VS obtained, reported she is a type 2 diabetic POC was 96, plan of care updated with pt and daughter
[2023-04-03 22:50] VITALS: BP 130/78; PULSE 72; RESP 18; TEMP 36.6; O2SAT 98
== END 2023-04-03 23:36 | disposition home or self-care (01) ==
PROVIDERS: Emergency Provider Emergency Medicine; PCP Internal Medicine
DX: J06.9 Acute upper respiratory infection, unspecified (principal); J40 Bronchitis, not specified as acute or chronic; N18.9 Chronic kidney disease, unspecified; Z20.822 Contact with and (suspected) exposure to COVID-19; Z20.828 Contact with and (suspected) exposure to other viral communicable diseases
CPT/HCPCS: 0241U; 71046; 87651; 99282; 99283

== ENCOUNTER 2023-04-24 18:20 | Emergency (ER) | payer MEDICARE, OTHER, SELFPAY ==
--- NOTE | ~2023-04-24 | XR_ITS ---
EXAMINATION: XR CHEST CLINICAL INFORMATION: Cough x4 weeks, history of sarcoidosis COMPARISON: 04/03/2023 TECHNIQUE: 2 views of the chest were obtained. FINDINGS: Normal cardiomediastinal silhouette. Mildly increased interstitial markings appear unchanged. No consolidation, pleural effusion or pneumothorax. No acute osseous abnormalities. XR/XR chest 2V IMPRESSION: No acute process.
[2023-04-24 18:38] VITALS: BP 151/85; PULSE 80; RESP 18; TEMP 36.6; O2SAT 97; BMI 24.9
--- NOTE | 2023-04-24 18:39 | ED.GENADULT ---
HPI - General Adult General Chief complaint: Upper Respiratory Symptoms Stated complaint: ? bronchitis Time Seen by Provider: 04/24/23 22:46 Source: patient, RN notes reviewed and old records reviewed Mode of arrival: ambulatory Limitations: no limitations History of Present Illness HPI narrative: 59-year-old female presents for evaluation of cough. Patient reports her symptoms have been present for the last 4 weeks She was seen here on 04/02/2023 She was discharged home with albuterol only and ?that does not do anything. ? She states that she gets bronchitis about once every year Patient states ?it only gets better with antibiotics. ? Denies any sick contacts Related Data Home Medications Medication Instructions Recorded Confirmed ascorbate calcium (vitamin C) 500 500 mg PO DAILY 03/29/20 10/28/20 mg tablet levothyroxine 112 mcg capsule 112 mcg PO DAILY 03/29/20 10/28/20 multivitamin 1 tab PO DAILY 03/29/20 10/28/20 clobetasol 0.05 % topical ointment g topical 11/17/21 finasteride 5 mg tablet 5 mg PO DAILY 05/04/22 minoxidil 2.5 mg tablet 1.25 mg PO DAILY 05/04/22 simvastatin 10 mg tablet 10 mg PO BEDTIME 05/04/22 Previous Rx's Medication Instructions Recorded albuterol sulfate 90 mcg/actuation 2 inh inhalation Q6H PRN shortness 11/17/21 aerosol inhaler of breath or wheezing 30 days #18 grams albuterol sulfate 90 mcg/actuation 2 inh inhalation Q6H PRN shortness 01/19/23 aerosol inhaler of breath or wheezing 30 days #18 grams azithromycin 500 mg tablet 500 mg PO DAILY 5 days #5 tabs 01/19/23 lorazepam 1 mg tablet (Ativan) 1 mg PO BEDTIME PRN anxiety/sleep 03/12/23 #10 tabs albuterol sulfate 90 mcg/actuation 2 puff inhalation Q6H PRN 04/03/23 aerosol inhaler shortness of breath or wheezing #8.5 grams azithromycin 250 mg tablet See Rx Instructions PO .COMPLEX #6 04/24/23 tabs melatonin 5 mg capsule 5 mg PO BEDTIME PRN insomnia #30 04/24/23 caps prednisone 20 mg tablet 40 mg (2 x 20 mg) PO DAILY #10 tabs 04/24/23 Allergies Allergy/AdvReac Type Severity Reaction Status Date / Time aspirin [ASPIRIN] AdvReac Severe KIDNEY Verified 04/24/23 18:38 FAILURE/KIDNEY PROBLEMS ibuprofen [IBUPROFEN] AdvReac Intermediate KIDNEY Verified 04/24/23 18:38 PROBLEMS doxycycline AdvReac Mild Gastrointestinal Verified 04/24/23 18:38 Upset Review of Systems Constitutional: Constitutional: Denies chills and Denies fever(s) Eyes: Eyes: Denies blurry vision ENT: Denies sore throat Cardiovascular: Cardiovascular: Denies chest pain and Denies dyspnea Respiratory: Respiratory: Reports cough and Denies dyspnea Gastrointestinal: Gastrointestinal: Denies abdominal pain, Denies nausea and Denies vomiting Musculoskeletal: Musculoskeletal: Denies back pain PMFSH Past Medical History Onset Date is defined in the Problem List Problems that require an onset date and time if occurred within 24 hrs of arrival to the ED Aortic Dissection and Rupture; Neurologic impairment; Cardiopulmonary Arrest; Endotracheal Intubation; Insertion or Replacement of Mechanical Circulatory Assist Device Medical History COVID-19 Reactive airway disease with wheezing with acute exacerbation Bronchopneumonia Chronic renal disease ADELINA on CPAP Pulmonary nodules Sarcoidosis Social History Social History Patient Tobacco Use Status: Never used Tobacco Advance Directives: No Advance Directives Information Provided: No Current occupational status: retired Current occupation: left hand Physical Exam ED Vital Signs: Vital Signs - 24 hr 04/24/23 18:38 04/24/23 21:20 Temperature 97.8 F 97.6 F Pulse Rate 80 73 Respiratory Rate 18 16 Blood Pressure 151/85 H 144/80 H Pulse Oximetry 97 95 Oxygen Delivery Method Room Air Room Air BMI result Body Mass Index 24.9 Const General: healthy appearing, comfortable, no acute distress, alert and awake Nutritional Appearance: well nourished Orientation/consciousness: patient oriented x3 HENMT Head: Yes normocephalic and Yes atraumatic Eyes Eyelids: Yes eyelids normal Conjunctivae: conjunctivae normal Sclerae: sclerae normal Corneas: corneas normal Pupils: Equal, round and reactive pupils present EOM: EOMs intact bilaterally Neck Neck: Yes full ROM Resp Effort & Inspection: normal respiratory effort, able to speak in complete sentences, no audible wheezes and not labored Auscultation: clear to auscultation bilaterally Neuro General: patient oriented x3 Cranial nerves: Yes CN's II-XII intact bilaterally, Yes Equal, round and reactive pupils present and Yes Bilaterally intact EOM present Cognition (Neuro): normal cognition Extrem Other: Moving all extremities well without any obvious deformities Course Course Course Narrative: This is an RME: Additional HPI, ROS, PE not included below will be deferred to primary provider. 67-year-old female, with a hx of sarcoidosis, came in for evaluation of upper respiratory symptoms, headache, cough with clear sputum, generalized body ache patient's symptoms x 4 weeks. Plan: chest xray Medical Decision Making Medical Decision Making MDM Narrative: 67-year-old female presents for evaluation of a persistent cough. She was seen here last 3 weeks ago. She has given it adequate time for symptomatic care only. Her vital signs are stable chest x-ray is clear without infiltrates. I feel is appropriate to treat with azithromycin and prednisone for upper respiratory infection given the duration of her symptoms. She has not hypoxic or tachycardic Differential Diagnosis Differential Diagnoses: The differential diagnosis associated with the presentation includes Upper respiratory infection Viral syndrome Bronchitis Pneumonia Independent Interpretation I performed an independent interpretation of an: Plain X-Ray (No infiltrates) Radiology Impression Discussion of test interpretation with radiology: I have reviewed the radiologist's reading. Prescription Management I considered prescription management with: Antibiotic Discharge Plan Discharge Clinical Impression: Upper respiratory infection Patient Disposition: Home, Self-Care Instructions: Upper Respiratory Infection (ED) Additional Instructions: Your chest x-ray did not show any concerning findings Take azithromycin and prednisone as directed Drink lots of fluids Follow-up with your primary doctor Return for new or worsening symptoms Prescriptions: New azithromycin 250 mg tablet See Rx Instructions .ROUTE .COMPLEX Qty: 6 0RF Rx Instructions: For 250 mg dose pack: take 500 mg today (day 1), then 250 mg for 4 days (days 2-5) prednisone 20 mg tablet 40 mg PO DAILY Qty: 10 0RF melatonin 5 mg capsule 5 mg PO BEDTIME PRN (Reason: insomnia) Qty: 30 0RF No Action lorazepam [Ativan] 1 mg tablet 1 mg PO BEDTIME PRN (Reason: anxiety/sleep) Qty: 10 0RF albuterol sulfate 90 mcg/actuation HFA aerosol inhaler 2 puff inhalation Q6H PRN (Reason: shortness of breath or wheezing) Qty: 8.5 0RF levothyroxine 112 mcg capsule 112 mcg PO DAILY ascorbate calcium (vitamin C) 500 mg tablet 500 mg PO DAILY multivitamin Tablet 1 tab PO DAILY ipratropium-albuterol 0.5 mg-3 mg(2.5 mg base)/3 mL solution for nebulization 3 ml inhalation ONCE Qty: 3 0RF clobetasol 0.05 % ointment topical albuterol sulfate 90 mcg/actuation HFA aerosol inhaler 2 inh inhalation Q6H PRN (Reason: shortness of breath or wheezing) 30 Days Qty: 18 12RF simvastatin 10 mg tablet 10 mg PO BEDTIME minoxidil 2.5 mg tablet 1.25 mg PO DAILY finasteride 5 mg tablet 5 mg PO DAILY albuterol sulfate 90 mcg/actuation HFA aerosol inhaler 2 inh inhalation Q6H PRN (Reason: shortness of breath or wheezing) 30 Days Qty: 18 12RF azithromycin 500 mg tablet 500 mg PO DAILY 5 Days Qty: 5 0RF
[2023-04-24 21:20] VITALS: BP 144/80; PULSE 73; RESP 16; TEMP 36.4; O2SAT 95
== END 2023-04-24 23:10 | disposition home or self-care (01) ==
PROVIDERS: Emergency Provider Internal Medicine; PCP Internal Medicine
DX: J06.9 Acute upper respiratory infection, unspecified (principal); R05.9 Cough, unspecified
CPT/HCPCS: 71046; 99282; 99283

== ENCOUNTER 2023-07-19 13:55 | Outpatient (REF) | payer MEDICARE, SELFPAY ==
[2023-07-19 14:46] LABS: MANUAL DIFF FLAG NO
[2023-07-19 15:05] LABS: Basophils Absolute Auto 0.1 X10*3/uL (0.0-0.2); Basophils Percent Auto 1.1 % (0-2); Eosinophils Absolute Auto 0.3 X10*3/uL (0.0-0.4); Hematocrit 37.6 % (37.0-47.0); Hemoglobin 12.9 g/dl (12.0-16.0); Imm Gran Abs Auto 0.01 X10*3/uL (0.00-0.03); Imm Gran Pct Auto 0.2 % (0.0-0.4); Lymphocytes Absolute Auto 1.9 X10*3/uL (1.2-4.9); Mean Corpuscular HGB Conc 34.3 g/dl (31.0-35.0); Mean Corpuscular Hemoglobin 30.9 pg (27.0-33.0); Mean Platelet Volume 10.1 fL (9.4-12.3); Monocytes Absolute Auto 0.6 X10*3/uL (0.1-1.2); Monocytes Percent Auto 9.2 % (2-11); Neutrophils Absolute Auto 3.5 x10*3/uL (2.0-8.3); Neutrophils Percent Auto 55.5 % (45-73); Platelet Count 242 X10*3/uL (160-400); Red Blood Count 4.18 X10*6/uL (4.20-5.50); Red Cell Distribution Width 12.3 % (11.0-16.0); White Blood Count 6.3 X10*3/uL (4.8-10.8)
[2023-07-19 15:37] LABS: Anion Gap 10 (12-20); Blood Urea Nitrogen 30 mg/dL (9-16); Calcium 9.5 mg/dL (8.4-10.2); Carbon Dioxide 28 mmol/L (22-29); Chloride 105 mmol/L (96-108); Estimated Glomerular Filt Rate 43; Glucose Random 91 mg/dL (60-115); Potassium 4.1 mmol/L (3.3-5.1); Sodium 139 mmol/L (135-145)
[2023-07-19 17:01] LABS: Erythrocyte Sedimentation Rate 16 MM/HR (0-20)
[2023-07-20 19:12] LABS: IgA 259 mg/dL (70-320); IgG 1022 mg/dL (600-1540); IgM 49 mg/dL (50-300)
[2023-07-20 19:49] LABS: Immunoglobulin E 5 kU/L (<OR=114)
[2023-07-22 16:03] LABS: Vitamin D 25-OH, D2 <4 ng/mL; Vitamin D 25-OH, D3 33 ng/mL; Vitamin D 25-OH, Total 33 ng/mL (30-100)
[2023-07-24 14:58] LABS: Angiotensin Converting Enzyme 29 U/L (9-67)
== END 2023-07-19 13:56 | disposition home or self-care (01) ==
LOC: HO.LAB 13:55
PROVIDERS: PCP Internal Medicine; Visit Provider Hospitalist
DX: J44.9 Chronic obstructive pulmonary disease, unspecified (principal); J40 Bronchitis, not specified as acute or chronic; D86.9 Sarcoidosis, unspecified; R05.3 Chronic cough; G47.33 Obstructive sleep apnea (adult) (pediatric); R91.8 Other nonspecific abnormal finding of lung field; Z99.89 Dependence on other enabling machines and devices
CPT/HCPCS: 36415; 80048; 82164; 82306; 82784; 82785; 85025; 85652; 99212

== ENCOUNTER 2023-07-19 13:55 | Outpatient (AMB) | payer MEDICARE, SELFPAY ==
[2023-07-19 14:12] VITALS: BP 118/60; PULSE 90; O2SAT 96; BMI 24.0
--- NOTE | 2023-07-19 14:12 | A.OFFVIS_ITS ---
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 She has been followed very closely with yearly CAT scans and her last CT scan was done at at [place]. I do not have the results. She did follow-up with her roll up helper and kidney function and calcium were stable. She has been having increasing daytime drowsiness. She does have headaches at times. She has also noticed some palpitations. Her [place] score is elevated 03/05. At this point the patient needs to have a sleep study. Will also address the palpitations specially with a history of sarcoidosis. We did talk about her blood work her Julio level was normal, but, her calcium was high normal. Will retest her at this time. The patient continues to have some shortness of breath with activity. Mild in severity. Does get better with rest. She is not using any inhalers at this time. Palpitations are indeed better. At this point will follow up after her blood work and also after her sleep study. 11/17/2021 The patient has a telehealth visit today. Overall she is feeling a lot better. She completed the prednisone and also the antibiotics. She does not have any residual symptoms. Her last chest x-ray was reassuring without any evidence of pneumonia. That was back in August. Her last CT scan was back in March 2021 demonstrating multiple pulmonary nodules. Will consider repeating the CT scan I year from her last 1. In the meantime she does feel some shortness of breath at times. She relates that to the fact that she is not going to the gym as regularly. She does not have a rescue inhaler at this time. I will make sure to send went to the pharmacy. We also talked about considering maintenance inhalers with inhaled cortical steroid if indeed the rescue short-acting beta agonist is not sufficient in the meantime she continues use her CPAP regularly. The CPAP therapy continues to be affecting beneficial. She does use it for more than 4 hours a night. She has been getting supplies regularly. 05/04/2022 the patient is here for a pulm onary follow-up visit. Overall the patient is doing a lot better. Back in March she developed influenza a. It was complicated by bronchitis and also significant bronchospasms and reactive airway disease. The patient was given Tamiflu and also given a course of prednisone. She also ultimately required antibiotics. After a prolonged period of time the patient did start getting better. Now she is back to her baseline. We did review her CT scan of the chest that she had prior to getting sick in February. This CT scan demonstrated a relatively normal CT scan without any significant interstitial changes. Significantly improved mosaic pattern. And no other abnormalities noted. This is very stable CT scan. No additional CT scans warranted at this time. In addition to that she had blood work demonstrating interval improvement in renal function now back to normal. She does follow closely with Nephrology regarding the renal insufficiency issues that she has had in the past. Clinically she is doing a lot better this time. Will plan to follow-up in the Fall with pulmonary function studies. The patient also continues use her CPAP every night. CPAP therapy continues to be affecting beneficial. She does use it for more than 4 hours a night. 01/19/2023 the patient is here for a sic k visit. Apparently she was [facility] until couple weeks ago when she started developing worsening cough nasal congestion and then went down to her chest. She went to urgent care here at [place]. She had an x-ray demonstrating no acute disease. She was diagnosed with bronchitis and was given a course of doxycycline. However, she ended up with significant nausea and she could not finish the course. She still feels not quite well. She is complaining of chest tightness and also cough. Her exam she is relatively unremarkable she does have diminished breath sounds but I do not appreciate any crackles or rales. I did review her last x-ray without any acute disease will go ahead and request a repeat 1 to make sure that all as well. Also change her antibiotics. I do not think she needs prednisone at this time she can always call if her symptoms worsen. She does need to use her nebulizer a couple times a day. 07/19/2023 the patient is here for a pulmonary follow-up visit. She is feeling better at this time. She had been sick for a few months with recurrent respiratory illnesses. She went to the ER twice. One in March 2023 and 1 in April 2023. She had x-rays without any significant changes although she did have some chronic hazy opacities in the right base area. These appear to be unchanged though. The patient did require prednisone and antibiotics few times. 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 Likely a combination of all these factors in the fact that it was a pretty busy viral season resulted in the significant infections. She has a diagnosis of sarcoidosis. Although it has been stable. We did review her blood work. He was relatively stable for although appear to be a little dehydrated. Will go ahead and repeat her blood work at this time to make sure she does not have any sarcoid activity. In the meantime the patient has been using her CPAP. CPAP therapy continues to be affecting beneficial. She does use it every night. She has been getting supplies regularly from her [employer]. No issues with her CPAP at this time. [facility] Medical History COVID-19 Reactive airway disease with wheezing with acute exacerbation Bronchopneumonia Chronic renal disease ADELINA on CPAP Pulmonary nodules Sarcoidosis Social History Patient Tobacco Use Status: Never used Tobacco Current occupational status: retired Current occupation: left hand Review of Systems Const Denies chills, Denies fatigue, Denies fever(s) and Denies night sweats ENT Denies change in voice, Denies lip swelling, Denies mouth pain, Denies nasal congestion, Denies nasal discharge and Denies tongue swelling Card Denies chest pain, Denies dyspnea and Denies dyspnea on exertion Resp Denies chest congestion, Reports cough, Denies dyspnea, Denies dyspnea on exertion and Denies wheezing GI Denies abdominal pain Musc Denies no additional complaints Neuro Denies Neuro-related abnormal movements Psych Denies no additional complaints Endo Denies fatigue Medardo/Lymph Denies easy bleeding and Denies lymphadenopathy Aller/Immun Denies lip swelling, Denies tongue swelling and Denies wheezing Physical Exam Vital Signs: Last Vital Signs Pulse 90 07/19/23 14:12 BP 118/60 07/19/23 14:12 Pulse Ox 96 07/19/23 14:12 Oxygen Delivery Method Room Air 07/19/23 14:12 BMI result Body Mass Index 24.0 Const General: cooperative and alert Orientation/consciousness: patient oriented x3 Neck Neck: Yes normal visual inspection, Yes full ROM and Yes no lymphadenopathy Chest Chest palpation & inspection: normal inspection of the chest Resp Effort & Inspection: normal respiratory effort Auscultation: clear to auscultation bilaterally, no crackles, no rhonchi and no wheezes Cardio Rate: regular rate Rhythm: regular rhythm Heart sounds: S1 normal heart sound present and S2 normal heart sound present GI Palpation (GI): Soft to palpation and nontender Auscultation: normal bowel sounds Skin General skin exam: rashes and/or lesions noted Neuro General: patient oriented x3 Assessment & Plan Assessment & Plan (1) Cough: Code(s): R05.9 - Cough, unspecified Qualifiers: Cough type: chronic Qualified Code(s): R05.3 - Chronic cough (2) ADELINA on CPAP: Code(s): G47.33 - Obstructive sleep apnea (adult) (pediatric); Z99.89 - Dependence on other enabling machines and devices (3) Pulmonary nodules: Comment: due to the sarcoid. Still monitoring for any progression Code(s): R91.8 - Other nonspecific abnormal finding of lung field (4) Sarcoidosis: Comment: with renal invovement. Appears to be stable. Code(s): D86.9 - Sarcoidosis, unspecified Plan MARTINEZ as needed continue APAP therapy CXR stable Bloodwork F/U in 6 months Orders: Orders Complete Blood Count Auto Diff Today D86.9 - Sarcoidosis, unspecified Basic Metabolic Panel Today D86.9 - Sarcoidosis, unspecified Angiotensin Converting Enzyme Today D86.9 - Sarcoidosis, unspecified Immunoglobulins,IgG IgA IgM Today J40 - Bronchitis, not specified as acute or chronic Vitamin D 25-OH (D2 and D3) Today D86.9 - Sarcoidosis, unspecified Erythrocyte Sedimentation Rate Today D86.9 - Sarcoidosis, unspecified Immunoglobulin E Today J40 - Bronchitis, not specified as acute or chronic Coding Level of Care Code Est Pt Level 4 (99889) Diagnoses Chronic cough R05.3 Cough type: chronic ADELINA on CPAP G47.33; Z99.89 Pulmonary nodules R91.8 Sarcoidosis D86.9 Time Spent (min) 17
== END 2023-07-19 14:33 | disposition home or self-care (01) ==
PROVIDERS: PCP Internal Medicine; Visit Provider Hospitalist
DX: R05.3 Chronic cough (principal); G47.33 Obstructive sleep apnea (adult) (pediatric); Z99.89 Dependence on other enabling machines and devices; R91.8 Other nonspecific abnormal finding of lung field; D86.9 Sarcoidosis, unspecified
CPT/HCPCS: 99214

== ENCOUNTER 2023-12-03 20:12 | Emergency (ER) | payer MEDICARE, SELFPAY ==
[2023-12-03 20:20] VITALS: BP 155/78; PULSE 77; RESP 18; TEMP 36.4; O2SAT 96; BMI 26.0
--- NOTE | 2023-12-03 20:24 | ED_ITS ---
HPI - Skin/Abscess/Foreign Bdy General Chief complaint: Wound/Laceration Stated complaint: pain in side Time Seen by Provider: 12/04/23 00:19 Source: patient Mode of arrival: ambulatory Limitations: no limitations History of Present Illness ED Provider: Dr. Alan Anguiano HPI narrative: 68-year-old female with a history of chronic kidney disease, obstructive sleep apnea with CPAP use, who presents emergency department for evaluation of emmanuel to her right abdominal wall, right arm and right foot. She sustained these emmanuel proximally 8 days ago. She states that she accidentally splashed herself with boiling water. Patient states that initially she had blisters to her skin but these blisters popped open. She has been applying triple antibiotic ointment twice a day and has been cleaning the wounds twice a day. She was concerned that the wounds were not healing so she came to the emergency department for evaluation. Patient states that her tetanus status is up-to-date. She denied systemic symptoms such as fever, chills, nausea, vomiting or fatigue. Related Data Home Medications ?Medication ?Instructions ?Recorded ?Confirmed ascorbate calcium (vitamin C) 500 500 mg PO DAILY 03/29/20 10/28/20 mg tablet levothyroxine 112 mcg capsule 112 mcg PO DAILY 03/29/20 10/28/20 multivitamin 1 tab PO DAILY 03/29/20 10/28/20 clobetasol 0.05 % topical ointment g topical 11/17/21 finasteride 5 mg tablet 5 mg PO DAILY 05/04/22 minoxidil 2.5 mg tablet 1.25 mg PO DAILY 05/04/22 simvastatin 10 mg tablet 10 mg PO BEDTIME 05/04/22 Previous Rx's ?Medication ?Instructions ?Recorded lorazepam 1 mg tablet (Ativan) 1 mg PO BEDTIME PRN anxiety/sleep 03/12/23 #10 tabs albuterol sulfate 90 mcg/actuation 2 puff inhalation Q6H PRN 04/03/23 aerosol inhaler shortness of breath or wheezing #8.5 grams melatonin 5 mg capsule 5 mg PO BEDTIME PRN insomnia #30 04/24/23 caps Allergies Allergy/AdvReac Type Severity Reaction Status Date / Time aspirin [ASPIRIN] AdvReac Severe KIDNEY Verified 12/03/23 20:25 FAILURE/KIDNEY PROBLEMS ibuprofen [IBUPROFEN] AdvReac Intermediate KIDNEY Verified 12/03/23 20:25 PROBLEMS doxycycline AdvReac Mild Gastrointestinal Verified 12/03/23 20:25 Upset Review of Systems 2 Review of Systems: Yes all other systems are reviewed and are negative [facility] Past Medical History Medical History COVID-19 Reactive airway disease with wheezing with acute exacerbation Bronchopneumonia Chronic renal disease ADELINA on CPAP Pulmonary nodules Sarcoidosis Social History Social History Patient Tobacco Use Status: Never used Tobacco Advance Directives: No Advance Directives Information Provided: Yes Do you have a plan to hurt others: No Plan Current occupational status: retired Current occupation: left hand Physical Exam 2 Vital Signs: Vital Signs: Last Vital Signs Temp 97.5 F 12/03/23 20:20 Pulse 77 12/03/23 20:20 Resp 18 12/03/23 20:20 BP 155/78 H 12/03/23 20:20 Pulse Ox 96 12/03/23 20:20 O2 Del Method Room Air 12/03/23 20:20 BMI result Body Mass Index 26.0 Vital signs revealed an elevated blood pressure of 155/78 otherwise unremarkable Exam: Skin: The patient has a patch of 1st and second-degree emmanuel to her right abdomen. She also has a second-degree burn to her foot. She has a first-degree burn to her right arm with a very small area of second-degree emmanuel. There is no increased warmth. There is no purulent drainage. Course Course Course Narrative: This is a Rapid Medical Examination (RME) performed by Austin Ken PA-C in triage. Full HPI, ROS, assessment and treatment plan per primary provider in the Main ED. 68 yo female here for eval of emmanuel to right upper extremity, right foot and right side of her abdomen x8 days. That while cooking something with hot water, the armstrong was accidentally knocked off of the stove causing boiling water to splash back onto her. She was not evaluated at that time. Reports going to [facility] and getting dressings / bacitracin to apply at home. States that she has been changing the dressing and applying bacitracin ointment however it appears that the emmanuel are worsening. Reports continued pain. denies fever/ chills. +abd difficult to examine in triage d/t privacy. noted 2nd degree emmanuel to right side abd with open blister. Plan: Labs, inflammatory markers Medical Decision Making Medical Decision Making [facility] Narrative: 68-year-old female with a history of chronic kidney disease, obstructive sleep apnea with CPAP use, who presents emergency department for evaluation of emmanuel to her right abdominal wall, right arm and right foot after accidentally spilling boiling water on her self 8 days prior. Patient has been applying triple antibiotic ointment twice a day and cleaning the wounds. Her tetanus status up-to-date. Vital signs were normal. Physical examination revealed a combination of 1st and second-degree emmanuel to her right abdominal wall, right forearm and a second-degree burn to her foot. Differential diagnosis: ?Includes but is not limited to first-degree emmanuel, second-degree burn, third-degree burn, cellulitis Course: 00:55 My interpretation patient's laboratory evaluation as follows: WBC was normal 6900. CRP and ESR were normal 0.28 and 17. BUN is elevated 32 with a normal creatinine of 1.25. LFTs were normal. Patient's examination is consistent with combination of 1st and second-degree emmanuel with no evidence of cellulitis. I did discuss this with the patient. She was advised to continue applying triple antibiotic ointment twice a day and to gently clean the wounds prior to applying the ointment. The patient will be referred to our wound care clinic for re-evaluation. She was given printed and verbal instructions and discharged home. Admission/Observation Consideration of admission/observation: Escalation of care including admission/observation considered Lab Data [facility] Lab Attestation statement: I reviewed the patient's lab results. 12/03/23 21:05 12/03/23 21:05 Labs: Lab Results 12/03/23 Range/Units 21:05 WBC 6.9 (4.8-10.8) X10*3/uL RBC 4.49 (4.20-5.50) X10*6/uL Hgb 13.7 (12.0-16.0) g/dl Hct 40.5 (37.0-47.0) % MCV 90.2 (80.0-98.0) fL MCH 30.5 (27.0-33.0) pg MCHC 33.8 (31.0-35.0) g/dl RDW 12.4 (11.0-16.0) % Plt Count 246 (160-400) X10*3/uL MPV 9.9 (9.4-12.3) fL Immature Gran % (Auto) 0.4 (0.0-0.4) % Neut % (Auto) 50.4 (45-73) % Lymph % (Auto) 34.6 (20-40) % [place] % (Auto) 10.0 (2-11) % Eos % (Auto) 3.9 (0-4) % Baso % (Auto) 0.7 (0-2) % Lymph # (Auto) 2.4 (1.2-4.9) X10*3/uL [place] # (Auto) 0.7 (0.1-1.2) X10*3/uL Eos # (Auto) 0.3 (0.0-0.4) X10*3/uL Baso # (Auto) 0.1 (0.0-0.2) X10*3/uL Abs Immat Gran (auto) 0.03 (0.00-0.03) X10*3/uL Absolute Neuts (auto) 3.5 (2.0-8.3) x10*3/uL Absolute Nucleated RBC 0.000 (0.0-0.012) X10*3/uL Nucleated RBC % (auto) 0.0 (0.0-0.2) /100WBC ESR 17 (0-20) MM/HR Sodium 140 (135-145) mmol/L Potassium 4.3 (3.3-5.1) mmol/L Chloride 105 (96-108) mmol/L Carbon Dioxide 28 (22-29) mmol/L Anion Gap 11 L (12-20) BUN 32 H (9-16) mg/dL Creatinine 1.25 (0.5-1.4) mg/dL Estim Creat Clear Calc 40.4 Estimated GFR 42 Random Glucose 99 (60-115) mg/dL Calcium 10.3 H D (8.4-10.2) mg/dL Magnesium 2.1 (1.6-2.6) mg/dL Total Bilirubin 0.6 (0.0-1.0) mg/dL AST 23 (5-31) U/L ALT 27 (0-31) U/L Alkaline Phosphatase 109 (39-117) U/L C-Reactive Protein 0.28 (< or = 0.50) mg/dL Total Protein 7.4 (6.5-8.0) g/dL Albumin 4.3 (3.5-5.0) g/dL Chronic Conditions Patient?s care impacted by: Other (Chronic kidney disease) Discharge Plan Discharge Clinical Impression: 2nd deg burn abdomn wall, Burn of second degree of right foot, initial encounter, Burn of first degree of right forearm, initial encounter Patient Disposition: Home, Self-Care Instructions: Second Degree Burn (ED) Additional Instructions: You have both 1st and second-degree emmanuel to your right side of your abdomen, a first-degree burn to your right arm and a second-degree burn to your right foot. The treatment is to apply triple antibiotic ointment (bacitracin or Neosporin) twice a day for 2 weeks. You should get the ointment and not the cream. The ointment penetrates the skin more deeply and stays on longer than cream. Gently clean the wounds with water prior to applying bacitracin You need to watch for signs of infection which include increased redness, swelling, increased warmth, red streaks going away from the emmanuel. I want you to follow-up with our wound clinic for re-evaluation in 3-4 days. Follow-up with your doctor or the wound care clinic in 4 days for re- evaluation.. Please return to the emergency department if your symptoms get worse or if you develop any symptoms that are concerning to you. Prescriptions: No Action lorazepam [Ativan] 1 mg tablet 1 mg PO BEDTIME PRN (Reason: anxiety/sleep) Qty: 10 0RF albuterol sulfate 90 mcg/actuation HFA aerosol inhaler 2 puff inhalation Q6H PRN (Reason: shortness of breath or wheezing) Qty: 8.5 0RF melatonin 5 mg capsule 5 mg PO BEDTIME PRN (Reason: insomnia) Qty: 30 0RF levothyroxine 112 mcg capsule 112 mcg PO DAILY ascorbate calcium (vitamin C) 500 mg tablet 500 mg PO DAILY multivitamin Tablet 1 tab PO DAILY ipratropium-albuterol 0.5 mg-3 mg(2.5 mg base)/3 mL solution for nebulization 3 ml inhalation ONCE Qty: 3 0RF clobetasol 0.05 % ointment topical simvastatin 10 mg tablet 10 mg PO BEDTIME minoxidil 2.5 mg tablet 1.25 mg PO DAILY finasteride 5 mg tablet 5 mg PO DAILY [place] [facility] [place] [facility] [place] Group] - 5 days (Combination of 1st and second-degree emmanuel to right abdominal wall, right arm and right foot 8 days prior to evaluation caused by accidentally spilling boiling water on her skin) Print Language: Welsh
--- NOTE | 2023-12-03 20:53 | MHC.EDTECH ---
patient was called 3 times to obtain labs ,no answer .
[2023-12-03 21:10] LABS: MANUAL DIFF FLAG NO
[2023-12-03 21:12] LABS: Basophils Absolute Auto 0.1 X10*3/uL (0.0-0.2); Basophils Percent Auto 0.7 % (0-2); Eosinophils Absolute Auto 0.3 X10*3/uL (0.0-0.4); Eosinophils Percent Auto 3.9 % (0-4); Hematocrit 40.5 % (37.0-47.0); Hemoglobin 13.7 g/dl (12.0-16.0); Imm Gran Abs Auto 0.03 X10*3/uL (0.00-0.03); Imm Gran Pct Auto 0.4 % (0.0-0.4); Lymphocytes Absolute Auto 2.4 X10*3/uL (1.2-4.9); Lymphocytes Percent Auto 34.6 % (20-40); Mean Corpuscular HGB Conc 33.8 g/dl (31.0-35.0); Mean Corpuscular Hemoglobin 30.5 pg (27.0-33.0); Mean Corpuscular Volume 90.2 fL (80.0-98.0); Mean Platelet Volume 9.9 fL (9.4-12.3); Monocytes Absolute Auto 0.7 X10*3/uL (0.1-1.2); Neutrophils Absolute Auto 3.5 x10*3/uL (2.0-8.3); Neutrophils Percent Auto 50.4 % (45-73); Platelet Count 246 X10*3/uL (160-400); Red Blood Count 4.49 X10*6/uL (4.20-5.50); Red Cell Distribution Width 12.4 % (11.0-16.0); White Blood Count 6.9 X10*3/uL (4.8-10.8)
[2023-12-03 21:26] LABS: Alanine Aminotransferase 27 U/L (0-31); Albumin Level 4.3 g/dL (3.5-5.0); Alkaline Phosphatase 109 U/L (39-117); Anion Gap 11 (12-20); Aspartate Amino Transferase 23 U/L (5-31); Bilirubin Total 0.6 mg/dL (0.0-1.0); Blood Urea Nitrogen 32 mg/dL (9-16); C Reactive Protein 0.28 mg/dL (< or = 0.50); Calcium 10.3 mg/dL (8.4-10.2); Carbon Dioxide 28 mmol/L (22-29); Chloride 105 mmol/L (96-108); Creatinine Clr Calc Pharmacy 40.4; Estimated Glomerular Filt Rate 42; Glucose Random 99 mg/dL (60-115); Magnesium 2.1 mg/dL (1.6-2.6); Potassium 4.3 mmol/L (3.3-5.1); Sodium 140 mmol/L (135-145); Total Protein 7.4 g/dL (6.5-8.0)
[2023-12-03 21:49] LABS: Erythrocyte Sedimentation Rate 17 MM/HR (0-20)
[2023-12-04] MEDS: Bacitracin Oint 0.9 GM PACKET 1 APPL TOPICAL (00:59)
[2023-12-04 01:00] VITALS: BP 155/78; PULSE 77; RESP 18; TEMP 36.4; O2SAT 96
== END 2023-12-04 01:02 | disposition home or self-care (01) ==
PROVIDERS: Physician Assistant Medical; Emergency Provider Emergency Medicine Emergency Medical Services; PCP Internal Medicine
DX: T21.22XA Burn of second degree of abdominal wall, initial encounter (principal); T25.221A Burn of second degree of right foot, initial encounter; T22.111A Burn of first degree of right forearm, initial encounter; X12.XXXA Contact with other hot fluids, initial encounter; Y93.G3 Activity, cooking and baking; Y92.030 Kitchen in apartment as the place of occurrence of the external cause; Y99.9 Unspecified external cause status
CPT/HCPCS: 36415; 80053; 83735; 85025; 85652; 86140; 99282; 99283

== ENCOUNTER 2024-02-10 07:05 | Emergency (ER) | payer MEDICARE, SELFPAY ==
--- NOTE | ~2024-02-10 | XR_ITS ---
EXAMINATION: XR CHEST CLINICAL INFORMATION: Cough COMPARISON: Prior chest 04/03/2023 TECHNIQUE: Frontal view of the chest was obtained. FINDINGS: No significant abnormality is noted involving the heart, lungs, mediastinum, bony thorax or soft tissues. XR/XR chest 1V IMPRESSION: Unremarkable examination. Electronically signed by: Burton Collazo MD 02/10/2024 09:29 AM EDT
[2024-02-10 07:14] VITALS: BP 136/73; PULSE 101; RESP 18; TEMP 37.1; O2SAT 93; BMI 25.1
--- NOTE | 2024-02-10 07:28 | ED.URI ---
HPI - URI/Sore Throat General Chief Complaint: Upper Respiratory Symptoms Stated Complaint: cough headache Time Seen by Provider: 02/10/24 07:20 History of Present Illness HPI Narrative: Patient is a 68-year-old female with a history of sarcoidosis. Presents today with coughing congestion upper respiratory symptoms generalized malaise that is been ongoing for about a week. Cough productive of some yellowish sputum. Came in for further evaluation. Not on steroids chronically. Took some albuterol with only minimal relief. Patient is vaccinated for COVID in the past. Related Data Home Medications ?Medication ?Instructions ?Recorded ?Confirmed ascorbate calcium (vitamin C) 500 500 mg PO DAILY 03/29/20 10/28/20 mg tablet levothyroxine 112 mcg capsule 112 mcg PO DAILY 03/29/20 10/28/20 multivitamin 1 tab PO DAILY 03/29/20 10/28/20 clobetasol 0.05 % topical ointment g topical 11/17/21 finasteride 5 mg tablet 5 mg PO DAILY 05/04/22 minoxidil 2.5 mg tablet 1.25 mg PO DAILY 05/04/22 simvastatin 10 mg tablet 10 mg PO BEDTIME 05/04/22 Previous Rx's ?Medication ?Instructions ?Recorded lorazepam 1 mg tablet (Ativan) 1 mg PO BEDTIME PRN anxiety/sleep 03/12/23 #10 tabs albuterol sulfate 90 mcg/actuation 2 puff inhalation Q6H PRN 04/03/23 aerosol inhaler shortness of breath or wheezing #8.5 grams melatonin 5 mg capsule 5 mg PO BEDTIME PRN insomnia #30 04/24/23 caps azithromycin 250 mg tablet See Rx Instructions PO .COMPLEX 02/10/24 upper resp infection #6 tabs Allergies Allergy/AdvReac Type Severity Reaction Status Date / Time aspirin [ASPIRIN] AdvReac Severe KIDNEY Verified 02/10/24 07:14 FAILURE/KIDNEY PROBLEMS ibuprofen [IBUPROFEN] AdvReac Intermediate KIDNEY Verified 02/10/24 07:14 PROBLEMS doxycycline AdvReac Mild Gastrointestinal Verified 02/10/24 07:14 Upset Review of Systems Review of Systems: Positive coughing congestion upper respiratory symptoms Positive generalized malaise Yes all other systems are reviewed and are negative PMFSH Past Medical History Attestation statement: The following information was validated with the patient. 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 Oriented X3. No acute distress. Eyes: Pupils equal, round and reactive to light. ENT: Pharynx normal. Neck: Normal inspection. Neck supple. No lymph nodes noted. No crepitus CVS: Normal heart rate and rhythm. Pulses normal. Normal S1 and S2 Respiratory: No respiratory distress. Breath sounds normal. No Wheezing. No rales Abdomen: Soft and nontender. No rigidity. No distention. good BS x4 Skin: Skin warm and dry. Normal skin color. Normal skin turgor. Extremities: No lower extremity edema. Neurovascular intact to all extremities. No Lacerations. No Rash Neuro: Oriented X 3. No motor deficit. No sensory deficit. Moving all extermities. No slurred speech Medical Decision Making Medical Decision Making MDM Narrative: My interpretation patient's chest x-ray is grossly negative for pneumonia. I reviewed patient's COVID flu RSV they are all negative. She is well-appearing. Will discharge patient home. A Z-Maxwell was prescribed. Differential Diagnosis Differential Diagnoses: The differential diagnosis associated with the presentation includes Bronchitis, viral Admission/Observation Consideration of admission/observation: Escalation of care including admission/observation considered Patient's O2 sat was okay well-appearing lungs are clear no need for admission Lab Data [facility] Lab Attestation statement: I reviewed the patient's lab results. Labs: Lab Results 02/10/24 Range/Units 07:29 Influenza Type A (PCR) NEGATIVE (Negative) Influenza Type B (PCR) NEGATIVE (Negative) RSV RNA Qual (PCR) NEGATIVE (Negative) SARS-CoV-2 RNA (RT-PCR) NEGATIVE (Negative) S. pyogenes GrpA [place] Negative (Negative) Independent Interpretation I performed an independent interpretation of an: Rhythm Strip and Plain X-Ray (Chest x-ray was negative) Radiology Impression Discussion of test interpretation with radiology: I have reviewed the radiologist's reading. Chronic Conditions History of sarcoid Social Determinants Patient?s care significantly limited by Social Determinants of Health including: Problems related to primary support group Discharge Plan Discharge Clinical Impression: Sarcoidosis, Upper respiratory infection Patient Disposition: Home, Self-Care Instructions: Upper Respiratory Infection (DC) Prescriptions: New azithromycin 250 mg tablet See Rx Instructions .ROUTE .COMPLEX Qty: 6 0RF Rx Instructions: take 500 mg today (day 1), then 250 mg for 4 days (days 2-5) No Action lorazepam [Ativan] 1 mg tablet 1 mg PO BEDTIME PRN (Reason: anxiety/sleep) Qty: 10 0RF albuterol sulfate 90 mcg/actuation HFA aerosol inhaler 2 puff inhalation Q6H PRN (Reason: shortness of breath or wheezing) Qty: 8.5 0RF melatonin 5 mg capsule 5 mg PO BEDTIME PRN (Reason: insomnia) Qty: 30 0RF levothyroxine 112 mcg capsule 112 mcg PO DAILY ascorbate calcium (vitamin C) 500 mg tablet 500 mg PO DAILY multivitamin Tablet 1 tab PO DAILY ipratropium-albuterol 0.5 mg-3 mg(2.5 mg base)/3 mL solution for nebulization 3 ml inhalation ONCE Qty: 3 0RF clobetasol 0.05 % ointment topical simvastatin 10 mg tablet 10 mg PO BEDTIME minoxidil 2.5 mg tablet 1.25 mg PO DAILY finasteride 5 mg tablet 5 mg PO DAILY Referrals: Petra Melton MD [Primary Care Provider] - 02/14/24 Print Language: Albanian
[2024-02-10 07:43] LABS: IDNOW Serial# 08D9AD1C; Strep A Nucleic Acid Negative (Negative)
[2024-02-10 08:19] VITALS: BP 127/66; PULSE 91; RESP 16; O2SAT 93
[2024-02-10 09:32] LABS: Influenza A PCR NEGATIVE (Negative); Influenza B PCR NEGATIVE (Negative); Resp Syncy Virus RNA Qual PCR NEGATIVE (Negative); SARS COV2 PCR INHOUSE NEGATIVE (Negative)
[2024-02-10 10:10] VITALS: BP 128/61; PULSE 91; RESP 16; TEMP 37.4; O2SAT 92
[2024-02-10] MEDS: Acetaminophen 325 MG TABLET 650 MG PO (10:25)
[2024-02-10 10:48] VITALS: BP 128/61; PULSE 91; RESP 16; TEMP 37.4; O2SAT 94
== END 2024-02-10 10:49 | disposition home or self-care (01) ==
PROVIDERS: Emergency Provider Emergency Medicine Emergency Medical Services; PCP Internal Medicine
DX: J06.9 Acute upper respiratory infection, unspecified (principal); D86.9 Sarcoidosis, unspecified; R05.9 Cough, unspecified; Z03.818 Encounter for observation for suspected exposure to other biological agents ruled out; Z79.899 Other long term (current) drug therapy
CPT/HCPCS: 0241U; 71045; 87651; 99283

== ENCOUNTER 2024-03-02 14:24 | Outpatient (AMB) | payer MEDICARE, SELFPAY ==
--- NOTE | 2024-03-02 14:34 | MHC.OFFVIS ---
Vital Signs 03/02/24 14:35 Height 5 ft 4 in Weight 148 lb 12.992 oz BMI 25.5 BP 122/76 Blood Pressure Location Rt brachial Position Sitting Pulse 82 Pulse Source Pulse Oximeter Pulse Oximetry (%) 96 Oxygen Delivery Method Room Air Intake Visit Reasons: Sarcoidosis Allergies aspirin [ASPIRIN] Adverse Reaction (Severe, Verified 03/02/24 14:38) KIDNEY FAILURE/KIDNEY PROBLEMS ibuprofen [IBUPROFEN] Adverse Reaction (Intermediate, Verified 03/02/24 14:38) KIDNEY PROBLEMS doxycycline Adverse Reaction (Mild, Verified 03/02/24 14:38) Gastrointestinal Upset HPI Comments Details: The patient is a 68-year-old woman known history of pulmonary nodules and lymphadenopathy due to sarcoidosis. She has been followed very closely with yearly CAT scans and her last CT scan was done at at [facility]. I do not have the results. 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 She has been having increasing daytime drowsiness. She does have headaches at times. She has also noticed some palpitations. Her [place] score is elevated 03/05. At this point the patient needs to have a sleep study. Will also address the palpitations specially with a history of sarcoidosis. We did talk about her blood work her Julio level was normal, but, her calcium was high normal. Will retest her at this time. The patient continues to have some shortness of breath with activity. Mild in severity. Does get better with rest. She is not using any inhalers at this time. Palpitations are indeed better. At this point will follow up after her blood work and also after her sleep study. 11/17/2021 The patient has a telehealth visit today. Overall she is feeling a lot better. She completed the prednisone and also the antibiotics. She does not have any residual symptoms. Her last chest x-ray was reassuring without any evidence of pneumonia. That was back in August. Her last CT scan was back in March 2021 demonstrating multiple pulmonary nodules. Will consider repeating the CT scan I year from her last 1. In the meantime she does feel some shortness of breath at times. She relates that to the fact that she is not going to the gym as regularly. She does not have a rescue inhaler at this time. I will make sure to send went to the pharmacy. We also talked about considering maintenance inhalers with inhaled cortical steroid if indeed the rescue short-acting beta agonist is not sufficient in the meantime she continues use her CPAP regularly. The CPAP therapy continues to be affecting beneficial. She does use it for more than 4 hours a night. She has been getting supplies regularly. 05/04/2022 the patient is here for a pulmonary follow-up visit. Overall the patient is doing a lot better. Back in March she developed influenza a. It was complicated by bronchitis and also significant bronchospasms and reactive airway disease. The patient was given Tamiflu and also given a course of prednisone. She also ultimately required antibiotics. After a prolonged period of time the patient did start getting better. Now she is back to her baseline. We did review her CT scan of the chest that she had prior to getting sick in February. This CT scan demonstrated a relatively normal CT scan without any significant interstitial changes. Significantly improved mosaic pattern. And no other abnormalities noted. This is very stable CT scan. No additional CT scans warranted at this time. In addition to that she had blood work demonstrating interval improvement in renal function now back to normal. She does follow closely with Nephrology regarding the renal insufficiency issues that she has had in the past. Clinically she is doing a lot better this time. Will plan to follow-up in the Fall with pulmonary function studies. The patient also continues use her CPAP every night. CPAP therapy continues to be affecting beneficial. She does use it for more than 4 hours a night. 01/19/2023 the patient is here for a sick visit. Apparently she was [facility] until couple weeks ago when she started developing worsening cough nasal congestion and then went down to her chest. She went to urgent care here at [place]. She had an x-ray demonstrating no acute disease. She was diagnosed with bronchitis and was given a course of doxycycline. However, she ended up with significant nausea and she could not finish the course. She still feels not quite well. She is complaining of chest tightness and also cough. Her exam she is relatively unremarkable she does have diminished breath sounds but I do not appreciate any crackles or rales. I did review her last x-ray without any acute disease will go ahead and request a repeat 1 to make sure that all as well. Also change her antibiotics. I do not think she needs prednisone at this time she can always call if her symptoms worsen. She does need to use her nebulizer a couple times a day. 07/19/2023 the patient is here for a pulmonary follow-up visit. She is feeling better at this time. She had been sick for a few months with recurrent respiratory illnesses. She went to the ER twice. One in March 2023 and 1 in April 2023. She had x-rays without any significant changes although she did have some chronic hazy opacities in the right base area. These appear to be unchanged though. The patient did require prednisone and antibiotics few times. 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 Likely a combination of all these factors in the fact that it was a pretty busy viral season resulted in the significant infections. She has a diagnosis of sarcoidosis. Although it has been stable. We did review her blood work. He was relatively stable for although appear to be a little dehydrated. Will go ahead and repeat her blood work at this time to make sure she does not have any sarcoid activity. In the meantime the patient has been using her CPAP. CPAP therapy continues to be affecting beneficial. She does use it every night. She has been getting supplies regularly from her [employer]. No issues with her CPAP at this time. 03/02/2024 the patient is here for a pulmonary follow-up visit. Overall she is doing okay. She did have a significant respiratory illness a couple weeks ago. She did require multiple courses of antibiotics and prednisone. Now her breathing is close to baseline. Her x-ray demonstrating no acute disease. She does have significant sarcoidosis and has had nodular densities and scarring in the lungs. Will go ahead and request a CT scan of the chest to see if there is any evidence of any progression of the interstitial lung disease at this time. We did review her blood work. she does follow closely with Nephrology regarding the sarcoid if her kidney function. Right now her EGFR is stable. In addition to that, she does use CPAP. CPAP therapy has been affecting beneficial she does use it for more than 4 hours a night. Will follow-up in 6-8 months. If she has any issues prior to that she will call for further evaluation. [facility] Medical History COVID-19 Reactive airway disease with wheezing with acute exacerbation Bronchopneumonia Chronic renal disease ADELINA on CPAP Pulmonary nodules Sarcoidosis Social History Patient Tobacco Use Status: Never used Tobacco Current occupational status: retired Current occupation: left hand Review of Systems Const Denies chills, Denies fatigue, Denies fever(s) and Denies night sweats ENT Denies change in voice, Denies lip swelling, Denies mouth pain, Denies nasal congestion, Denies nasal discharge and Denies tongue swelling Card Denies chest pain, Denies dyspnea and Denies dyspnea on exertion Resp Denies chest congestion, Reports cough, Denies dyspnea, Denies dyspnea on exertion and Denies wheezing GI Denies abdominal pain Musc Denies no additional complaints Neuro Denies Neuro-related abnormal movements Psych Denies no additional complaints Endo Denies fatigue Medardo/Lymph Denies easy bleeding and Denies lymphadenopathy Aller/Immun Denies lip swelling, Denies tongue swelling and Denies wheezing Physical Exam Vital Signs: Last Vital Signs Pulse 82 03/02/24 14:35 BP 122/76 03/02/24 14:35 Pulse Ox 96 03/02/24 14:35 Oxygen Delivery Method Room Air 03/02/24 14:35 BMI result Body Mass Index 25.5 Const General: cooperative and alert Orientation/consciousness: patient oriented x3 Neck Neck: Yes normal visual inspection, Yes full ROM and Yes no lymphadenopathy Chest Chest palpation & inspection: normal inspection of the chest Resp Effort & Inspection: normal respiratory effort Auscultation: clear to auscultation bilaterally, no crackles, no rhonchi and no wheezes Cardio Rate: regular rate Rhythm: regular rhythm Heart sounds: S1 normal heart sound present and S2 normal heart sound present GI Palpation (GI): Soft to palpation and nontender Auscultation: normal bowel sounds Skin General skin exam: rashes and/or lesions noted Neuro General: patient oriented x3 Assessment & Plan Assessment & Plan (1) Cough: Code(s): R05.9 - Cough, unspecified Category: Medical Qualifiers: Cough type: chronic Qualified Code(s): R05.3 - Chronic cough (2) ADELINA on CPAP: Code(s): G47.33 - Obstructive sleep apnea (adult) (pediatric); Z99.89 - Dependence on other enabling machines and devices Category: Medical (3) Pulmonary nodules: Comment: due to the sarcoid. Still monitoring for any progression Code(s): R91.8 - Other nonspecific abnormal finding of lung field Category: Medical (4) Sarcoidosis: Comment: with renal invovement. Appears to be stable. Code(s): D86.9 - Sarcoidosis, unspecified Category: Medical Plan MARTINEZ as needed continue APAP therapy CT chest F/U in 6 months Orders: Orders CT chest wo IV con 4 Weeks R91.8 - Other nonspecific abnormal finding of lung field Coding Level of Care Code Est Pt Level 4 (27976) Diagnoses Chronic cough R05.3 Cough type: chronic ADELINA on CPAP G47.33; Z99.89 Pulmonary nodules R91.8 Sarcoidosis D86.9 Time Spent (min) 16
[2024-03-02 14:35] VITALS: BP 122/76; PULSE 82; O2SAT 96; BMI 25.5
== END 2024-03-02 15:00 | disposition home or self-care (01) ==
PROVIDERS: PCP Internal Medicine; Visit Provider Hospitalist
DX: R05.3 Chronic cough (principal); G47.33 Obstructive sleep apnea (adult) (pediatric); Z99.89 Dependence on other enabling machines and devices; R91.8 Other nonspecific abnormal finding of lung field; D86.9 Sarcoidosis, unspecified
CPT/HCPCS: 99214

== ENCOUNTER → 2024-03-02 14:24 | Outpatient (BNVA) | payer MEDICARE, SELFPAY | PROVIDERS: PCP Internal Medicine; Visit Provider Hospitalist | DX: D86.9 Sarcoidosis, unspecified (principal); R91.8 Other nonspecific abnormal finding of lung field; R05.3 Chronic cough; G47.33 Obstructive sleep apnea (adult) (pediatric); Z99.89 Dependence on other enabling machines and devices | CPT/HCPCS: 99212 ==

== ENCOUNTER 2024-04-17 13:52 | Outpatient (REF) | payer MEDICARE, SELFPAY ==
--- NOTE | ~2024-04-17 | CT_ITS ---
CLINICAL HISTORY: R91.8 - Other nonspecific abnormal finding of lung field CT chest without contrast Comparison: None Findings: The heart is normal size. The visualized thyroid and mediastinum are unremarkable. Small hiatal hernia. Emphysema. 3.8 mm ground-glass opacity of the right middle lobe series 4, image 23. Small left-sided fat containing diaphragmatic hernia. The visualized upper abdomen is unremarkable. No acute fractures. IMPRESSION: Small ground-glass opacity of the right middle lobe. Fleischner Society 2017 Guidelines for incidentally detected indeterminate nodules in persons 35 years of age or older. Single Solid Nodules: 5 mm or smaller nodules need no follow-up in low risk, and [address] follow-up is optional in high risk patients. 6-8 mm nodules have optional [address] follow-up in low risk, and 6-[address] follow-up followed by 18-[address] follow-up if no change in high risk patients. 9 mm or larger nodules should consider CT, PET/CT, or biopsy at 3 months regardless of patient risk. Multiple Solid Nodules: 5 mm or smaller nodules need no follow-up in low risk, and [address] follow-up is optional in high risk patients. 6-8 mm nodules need 3-[address] follow-up followed by an optional 18-[address] follow-up regardless of patient risk. 9 mm or larger nodules should consider 3-[address] follow-up. For low risk 18-24 month follow-up is optional, whereas for high risk it is needed. Single Ground Glass Nodules: 5 mm or smaller nodules need no followup 6 mm and larger nodules need CT at 6-12 months to confirm persistence, then CT every 2 years until 5 years Single Subsolid Nodules: 5 mm or smaller nodules need no followup 6 mm and larger nodules need CT at 3-6 months to confirm persistence. If no change and solid component /T/lt;6 mm, then CT every year until 5 years Multiple Ground Glass or Subsolid Nodules: 5 mm or smaller nodules need CT at 3-6 months. If stable, optional CT at 2 and 4 years. 6 mm or larger nodules need CT at 3-6 months. Subsequent management based on most suspicious nodule This document has been electronically signed by: Bari Torres MD on 04/22/2024 07:17:01
== END 2024-04-17 13:53 | disposition home or self-care (01) ==
LOC: HO.CT 13:52
PROVIDERS: PCP Internal Medicine; Visit Provider Hospitalist
DX: R91.8 Other nonspecific abnormal finding of lung field (principal)
CPT/HCPCS: 71250

== ENCOUNTER → 2024-04-17 13:54 | Outpatient (BNV) | payer MEDICARE, SELFPAY | PROVIDERS: PCP Internal Medicine; Visit Provider Nuclear Medicine | DX: R91.8 Other nonspecific abnormal finding of lung field (principal) | CPT/HCPCS: 71250 ==

== ENCOUNTER 2024-12-26 15:51 | Outpatient (AMB) | payer MEDICARE, SELFPAY ==
--- NOTE | 2024-12-26 15:53 | A.OFFVIS_ITS ---
Vital Signs 12/26/24 15:54 Height 5 ft 4 in Weight 152 lb 1.903 oz BMI 26.1 BP 132/74 Blood Pressure Location Lt brachial Position Sitting Pulse 85 Pulse Source Pulse Oximeter Pulse Oximetry (%) 96 Oxygen Delivery Method Room Air Intake Visit Reasons: sarcoidosis Accompanied by: Self / Same As Patient Allergies aspirin (ASPIRIN) Adverse Reaction (Severe, Verified 12/26/24 15:57) KIDNEY FAILURE/KIDNEY PROBLEMS ibuprofen (IBUPROFEN) Adverse Reaction (Intermediate, Verified 12/26/24 15:57) KIDNEY PROBLEMS doxycycline Adverse Reaction (Mild, Verified 12/26/24 15:57) Gastrointestinal Upset HPI Comments Details: The patient is a 69-year-old woman known history of pulmonary nodules and lymphadenopathy due to sarcoidosis. She has been followed very closely with yearly CAT scans and her last CT scan was done at at [place]. I do not have the results. 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 She has been having increasing daytime drowsiness. She does have headaches at times. She has also noticed some palpitations. Her Redwood score is elevated 11/24. At this point the patient needs to have a sleep study. Will also address the palpitations specially with a history of sarcoidosis. We did talk about her blood work her Julio level was normal, but, her calcium was high normal. Will retest her at this time. The patient continues to have some shortness of breath with activity. Mild in severity. Does get better with rest. She is not using any inhalers at this time. Palpitations are indeed better. At this point will follow up after her blood work and also after her sleep study. 11/17/2021 The patient has a telehealth visit today. Overall she is feeling a lot better. She completed the prednisone and also the antibiotics. She does not have any residual symptoms. Her last chest x-ray was reassuring without any evidence of pneumonia. That was back in August. Her last CT scan was back in March 2021 demonstrating multiple pulmonary nodules. Will consider repeating the CT scan I year from her last 1. In the meantime she does feel some shortness of breath at times. She relates that to the fact that she is not going to the gym as regularly. She does not have a rescue inhaler at this time. I will make sure to send went to the pharmacy. We also talked about considering maintenance inhalers with inhaled cortical steroid if indeed the rescue short-acting beta agonist is not sufficient in the meantime she continues use her CPAP regularly. The CPAP therapy continues to be affecting beneficial. She does use it for more than 4 hours a night. She has been getting supplies regularly. 05/04/2022 the patient is here for a pulmonary follow-up visit. Overall the patient is doing a lot better. Back in March she developed influenza a. It was complicated by bronchitis and also significant bronchospasms and reactive airway disease. The patient was given Tamiflu and also given a course of prednisone. She also ultimately required antibiotics. After a prolonged period of time the patient did start getting better. Now she is back to her baseline. We did review her CT scan of the chest that she had prior to getting sick in February. This CT scan demonstrated a relatively normal CT scan without any significant interstitial changes. Significantly improved mosaic pattern. And no other abnormalities noted. This is very stable CT scan. No additional CT scans warranted at this time. In addition to that she had blood work demonstrating interval improvement in renal function now back to normal. She does follow closely with Nephrology regarding the renal insufficiency issues that she has had in the past. Clinically she is doing a lot better this time. Will plan to follow-up in the Fall with pulmonary function studies. The patient also continues use her CPAP every night. CPAP therapy continues to be affecting beneficial. She does use it for more than 4 hours a night. 01/19/2023 the patient is here for a sick visit. Apparently she [facility] until couple weeks ago when she started developing worsening cough nasal congestion and then went down to her chest. She went to urgent care here at [place]. She had an x-ray demonstrating no acute disease. She was diagnosed with bronchitis and was given a course of doxycycline. However, she ended up with significant nausea and she could not finish the course. She still feels not quite well. She is complaining of chest tightness and also cough. Her exam she is relatively unremarkable she does have diminished breath sounds but I do not appreciate any crackles or rales. I did review her last x-ray without any acute disease will go ahead and request a repeat 1 to make sure that all as well. Also change her antibiotics. I do not think she needs prednisone at this time she can always call if her symptoms worsen. She does need to use her nebulizer a couple times a day. 07/19/2023 the patient is here for a pulmonary follow-up visit. She is feeling better at this time. She had been sick for a few months with recurrent respiratory illnesses. She went to the ER twice. One in March 2023 and 1 in April 2023. She had x-rays without any significant changes although she did have some chronic hazy opacities in the right base area. These appear to be unchanged though. The patient did require prednisone and antibiotics few times. 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 Likely a combination of all these factors in the fact that it was a pretty busy viral season resulted in the significant infections. She has a diagnosis of sarcoidosis. Although it has been stable. We did review her blood work. He was relatively stable for although appear to be a little dehydrated. Will go ahead and repeat her blood work at this time to make sure she does not have any sarcoid activity. In the meantime the patient has been using her CPAP. CPAP therapy continues to be affecting beneficial. She does use it every night. She has been getting supplies regularly from her [place]. No issues with her CPAP at this time. 03/02/2024 the patient is here for a pulmonary follow-up visit. Overall she is doing okay. She did have a significant respiratory illness a couple weeks ago. She did require multiple courses of antibiotics and prednisone. Now her breathing is close to baseline. Her x-ray demonstrating no acute disease. She does have significant sarcoidosis and has had nodular densities and scarring in the lungs. Will go ahead and request a CT scan of the chest to see if there is any evidence of any progression of the interstitial lung disease at this time. We did review her blood work. she does follow closely with Nephrology regarding the sarcoid if her kidney function. Right now her EGFR is stable. In addition to that, she does use CPAP. CPAP therapy has been affecting beneficial she does use it for more than 4 hours a night. Will follow-up in 6-8 months. If she has any issues prior to that she will call for further evaluation. 12/26/2024 the patient is here for pulmonary follow-up visit. Overall the patient has been doing well. Respiratory locke she has no limitations. The patient did have a CT scan of the chest that I personally reviewed. Major issue is her hiatal hernia. She does not have any access symptoms right now. Although I did talk about sleeping elevated at least with the head of bed elevated to minimize micro aspirations into the lungs. The patient also should undergo any GI evaluation. She has yet to get a colonoscopy. Therefore she may benefit from getting an EGD and colonoscopy together when she she is due. The patient does have a history of sarcoid but appears to be stable. The patient has had involvement of her kidneys. Will go ahead and request blood work at least in the next several weeks to address any potential activity. All she is doing well she continues use CPAP at nighttime. CPAP therapy has been affecting beneficial she does use it for more than 4 hours a night. The therapy she will continue since his extremely helpful for her. The patient will follow-up sometime in the of 2025 if she has any issues prior to that she can always call for an earlier assessment. [facility] Medical History COVID-19 Reactive airway disease with wheezing with acute exacerbation Bronchopneumonia Chronic renal disease ADELINA on CPAP Pulmonary nodules Sarcoidosis Social History Patient Tobacco Use Status: Never used Tobacco Current occupational status: retired Current occupation: left hand Review of Systems Const Denies chills, Denies fatigue, Denies fever(s) and Denies night sweats ENT Denies change in voice, Denies lip swelling, Denies mouth pain, Denies nasal congestion, Denies nasal discharge and Denies tongue swelling Card Denies chest pain, Denies dyspnea and Denies dyspnea on exertion Resp Denies chest congestion, Reports cough, Denies dyspnea, Denies dyspnea on exertion and Denies wheezing GI Denies abdominal pain Musc Denies no additional complaints Neuro Denies Neuro-related abnormal movements Psych Denies no additional complaints Endo Denies fatigue Medardo/Lymph Denies easy bleeding and Denies lymphadenopathy Aller/Immun Denies lip swelling, Denies tongue swelling and Denies wheezing Physical Exam Vital Signs: Last Vital Signs Pulse 85 12/26/24 15:54 BP 132/74 12/26/24 15:54 Pulse Ox 96 12/26/24 15:54 Oxygen Delivery Method Room Air 12/26/24 15:54 BMI result Body Mass Index 26.1 Const General: cooperative and alert Orientation/consciousness: patient oriented x3 Neck Neck: Yes normal visual inspection, Yes full ROM and Yes no lymphadenopathy Chest Chest palpation & inspection: normal inspection of the chest Resp Effort & Inspection: normal respiratory effort Auscultation: clear to auscultation bilaterally, no crackles, no rhonchi and no wheezes Cardio Rate: regular rate Rhythm: regular rhythm Heart sounds: S1 normal heart sound present and S2 normal heart sound present GI Palpation (GI): Soft to palpation and nontender Auscultation: normal bowel sounds Skin General skin exam: rashes and/or lesions noted Neuro General: patient oriented x3 Assessment & Plan Assessment & Plan (1) Sarcoidosis: Comment: with renal invovement. Appears to be stable. Code(s): D86.9 - Sarcoidosis, unspecified Category: Medical (2) Chronic renal disease: Comment: ?sarcoid related Code(s): N18.9 - Chronic kidney disease, unspecified Category: Medical Qualifiers: Chronic kidney disease stage: unspecified stage Qualified Code(s): N18.9 - Chronic kidney disease, unspecified (3) Cough: Code(s): R05.9 - Cough, unspecified Category: Medical Qualifiers: Cough type: chronic Qualified Code(s): R05.3 - Chronic cough (4) ADELINA on CPAP: Code(s): G47.33 - Obstructive sleep apnea (adult) (pediatric); Z99.89 - Dependence on other enabling machines and devices Category: Medical (5) Pulmonary nodules: Comment: due to the sarcoid. Still monitoring for any progression Code(s): R91.8 - Other nonspecific abnormal finding of lung field Category: Medical Plan MARTINEZ as needed continue APAP therapy Bloodwork F/U in 8-12 months Orders: Orders Complete Blood Count Auto Diff Today D86.9 - Sarcoidosis, unspecified, N18.9 - Chronic kidney disease, unspecified Angiotensin Converting Enzyme Today D86.9 - Sarcoidosis, unspecified, N18.9 - Chronic kidney disease, unspecified Erythrocyte Sedimentation Rate Today D86.9 - Sarcoidosis, unspecified, N18.9 - Chronic kidney disease, unspecified Liver Panel Today D86.9 - Sarcoidosis, unspecified, N18.9 - Chronic kidney disease, unspecified Basic Metabolic Panel Today D86.9 - Sarcoidosis, unspecified, N18.9 - Chronic kidney disease, unspecified Coding Level of Care Code Est Pt Level 4 (05614) Complex EM visit Add On G2211 Diagnoses Sarcoidosis D86.9 Chronic kidney disease, unspecified CKD stage N18.9 Chronic kidney disease stage: unspecified stage Chronic cough R05.3 Cough type: chronic ADELINA on CPAP G47.33; Z99.89 Pulmonary nodules R91.8 Time Spent (min) 16
[2024-12-26 15:54] VITALS: BP 132/74; PULSE 85; O2SAT 96; BMI 26.1
--- OUTSIDE RECORDS SUMMARY | 2024-12-26 18:59 | XMS_ITS | Clinical Summary ---
Author Organization [facility] [address] [facility] Address [address] [place] [address] Phone Care Team Providers Care Electric Container Tester Name Role Phone Petra Arana MD Primary Care Prov ider Allergies Active Allergy Reactions Criticality Noted Date Comments Pollen Extracts 08/21/2024 Medications ascorbic acid (VITAMIN C) 1,000 mg tablet Take 1 tablet (1,000 mg total) by mouth 1 (one) time each day. Active cyanocobalamin (VIT B-12) 1,000 mcg tablet extended release ER tablet Take by mouth. Active MELATONIN ORAL Take 5 mg by mouth at bedtime as needed. Active levothyroxine (SYNTHROID, LEVOTHROID) 112 mcg tablet Take 1 tablet (112 mcg total) by mouth 1 (one) time each day. 90 tablet 1 5 Active simvastatin (ZOCOR) 10 mg tablet Take 1 tablet (10 mg total) by mouth at bedtime. 90 tablet 1 5 01/03/20 25 Active finasteride (PROSCAR) 5 mg tablet Take 1 tablet (5 mg total) by mouth 1 (one) time each day. Do not crush, chew, or split. 90 each 3 5 08/22/19 26 Active clobetasoL (TEMOVATE) 0.05 % ointment Apply twice weekly 60 g 5 Active amitriptyline (ELAVIL) 25 mg tablet TAKE 1 TABLET(25 MG) BY MOUTH AT BEDTIME 30 tablet 1 5 Active amitriptyline (ELAVIL) 25 mg tablet Take 1 tablet (25 mg total) by mouth at bedtime. 30 each 2 5 12/14/19 25 Discontinued Active Problems Problem Noted Date Diagnosed Date Venous insufficiency (chronic) (peripheral) 12/11 ADELINA on CPAP 08/02/2020 Vulvar lesion 11/23/2018 Overview (02/22/2024): Last Assessment & Plan: Pt counseled that vulvar lesion she describes has resolved and she can discontinue cream. She was relieved. Hypothyroidism 10/25/2017 Assessment & Plan (08/21/2024 2:21 PM EDT): Recent TSH within normal limits. Will continue levothyroxine 112 mcg a day. Mixed hyperlipidemia 05/03/2017 Assessment & Plan (08/21/2024 2:21 PM EDT): Lipid panel is acceptable. Will continue simvastatin 10 mg. Pulmonary nodules 04/29/2017 Alopecia 03/13/2016 PTSD (post-traumatic stress disorder) 12/05/2013 Depression, major 05/19/2013 CKD (chronic kidney disease) stage 3, GFR 30-59 ml/min ([facility] V24, [facility] V28) 04/28/2013 Rectal ulcer 02/24/2011 Overview (02/22/2024): colonscopy and bx 02/24/2011, bx showed normal colonic mucosa. 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 Immunizations Name Administration Dates Next Due Influenza trivalent, 0.5mL ( Fluad) 65yo and older 12/26/2021,03/19/2021 Influenza trivalent, 0.5mL, preservative free (Fluarix; FluLaval; Fluzone) ages 6mo and older (Afluria) 3 years and older 01/18/2015,01/15/2014,01/10/2013,03/24 Influenza, Unspecified 03/27/2017 Pfizer SARS-CoV-2 COVID-19, mRNA, LNP-S, preservative free 03/04/2021 Pneumococcal conjugate 20 va lent (Prevnar 20, PCV 20) 2mo and older 07/27/2023 Pneumococcal polysaccharide 23 valent (Pneumovax 23) 2yo and older 12/07/2010 Tdap Tetanus diptheria acell ular pertussis (Boostrix; Adacel) 7yo and older 07/27/2023,08/08/2009 Surgical History Surgery Date Site/Laterality Comments COLONOSCOPY W/ BIOPSIES 02/24/2011 PROCEDURE: UT COLONOSCOPY W/BIOPSY SINGLE/MULTIPLE; COMMENT: rectal ulcer, bx showed normal colonic mucosa. 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; COMMENT: CT chest Sarcoidosis of lung (CMS/HCC V24) 05/20/2010 DX:Sarcoidosis of lung (HCC); COMMENT: Seen by dr reyes.had bronchoscopy done by dr mir biopsy consistent with sarcoid Family History Medical History Relation Name Comments No Known Problems Brother No Known Problems Daughter Diabetes Father No Known Problems Maternal Grandfather No Known Problems Maternal Grandmother Cirrhosis Mother No Known Problems Other No Known Problems Paternal Grandfather No Known Problems Paternal Grandmother Cirrhosis Sister Breast cancer Neg Hx Colon cancer Neg Hx Ovarian cancer Neg Hx Relation Name Status Comments Brother Alive 7,one Daughter Father Maternal Grandfather Maternal Grandmother Mother some liver prob elm Other Paternal Grandfather Paternal Grandmother Sister Alive 2, Social History Tobacco Use Types Packs/Day Years Used Date Smoking Tobacco: Never Smokeless Tobacco: Never Tobacco Cessation:Counseling Given: Not Answered Alcohol Use Standard Drinks/Week Comments No 0 (1 standard drink = 0.6 oz pur e alcohol) Comments Unknown Sex and Gender Information Value Date Recorded Sex Assigned at Not on file Legal Sex Female 6:18 PM EST Gender Identity Not on file Sexual Orientation Not on file Obstetrics History Last Filed Vital Signs Vital Sign Reading Time Taken Comments Blood Pressure 124/76 08/21/2024 1:09 PM EDT Pulse 82 08/21/2024 1:09 PM EDT Temperature 36.6 C (97.8 F) 08/21/2024 1:09 PM EDT Respiratory Rate 15 08/21/2024 1:09 PM EDT Oxygen Saturation - - Inhaled Oxygen Concentration - - Weight 69.4 kg (153 lb) 08/21/2024 1:09 PM EDT Height 162.6 cm (5' 4 ) 08/21/2024 1:09 PM EDT Body Mass Index 26.26 08/21/2024 1:09 PM EDT Plan of Treatment Upcoming Encounters Date Type Department Care Team (Late st Contact Info) Description 01/23/2025 3:15 PM EDT Office Visit [facility] [address] [place] [id number] Taras Meredith MD [address] [place] [address] Health Maintenance Due Date Last Done Comments Zoster Vaccines (1 of 2) 1974 COVID-19 Vaccine (2 - Pfizer risk series) 03/25/2021 03/04/2021 Medicare Annual Wellness Visit 03/21/2022 Osteoporosis Screening (Bone Density Screening) 03/21/2022 Social Influencers of Health Screening 03/21/2022 Depression Screening 04/12/2024 07/27/2023 Falls Risk Assessment 07/26/2024 07/27/2023 Influenza Vaccine (#1) 2024 2, 03/19/2021, 02/06/2020, Additional history exists Breast Cancer Screening 09/27/2025 09/28/19 24, 09/28/2023, 02/16/2019, Additional history exists RSV Immunization Adult Patients (1 - 1-dose 75+ series) 2029 Cholesterol Screening (Lipid Panel) 08/17/2029 08/17/2024, 2023 DTaP,Tdap,and Td Vaccines (3 - Td or Tdap) 07/26/2033 07/27/2023, 08/08/2009 Colorectal Cancer Screening: Colonoscopy 09/09/2033 09/10/2023 Hepatitis C Screening Completed 12/22/2019 Pneumococcal Vaccine: 50+ Years Completed 07/27/2023, 12/07/2010 HIB Vaccines Aged Out No longer eligi ble based on patient's age to complete this topic HPV Vaccines Aged Out No longer eligi ble based on patient's age to complete this topic Hepatitis A Vaccines Aged Out No long er eligible based on patient's age to complete this topic Hepatitis B Vaccines Aged Out No long er eligible based on patient's age to complete this topic IPV Vaccines Aged Out No longer eligi ble based on patient's age to complete this topic MMR Vaccines Aged Out No longer eligi ble based on patient's age to complete this topic Meningococcal ACWY Vaccine Aged Out N o longer eligible based on patient's age to complete this topic Meningococcal B Vaccine Aged Out No l onger eligible based on patient's age to complete this topic RSV Immunization Patients Under 20 months Aged Out No longer eligible based on patient's age to complete this topic Varicella Vaccines Aged Out No longer eligible based on patient's age to complete this topic Procedures Procedure Name Priority Date/Time Associated Diagnosis Comments LIPID PANEL WITH REFLEX TO DIRECT LDL Routine 08/17/2024 4:09 PM EDT Mixed hyperlipidemia SCREENING MAMMOGRAPHY BI 2-VIEW BREAST INC CAD Routine 09/28/2023 2:42 PM EDT Encounter for screening mammogram for malignant neoplasm of breast COLONOSCOPY Routine 09/10/2023 DEPRESSION SCREENING Routine 07/27/2023 FALLS RISK ASSESSMENT Routine 07/27/2023 HEPATITIS C SCREENING Routine 12/22/2019 from Last 3 Months or Most Recently Relevant to Health Maintenance Results * (ABNORMAL) Lipid panel with reflex to direct LDL (08/17/2024 4:09 PM EDT) Cholesterol 184 0 - 200 mg/dL LAB CHEMISTRY METHOD 08/17/2024 6:51 PM EDT [facility] Triglycerides 154(H) 0 - 150 mg/dL LAB CHEMISTRY METHOD 08/17/2024 6:51 PM EDT [facility] HDL 53 >=40 mg/dL LAB CHEMISTRY METHOD 08/17/2024 6:51 PM EDT [facility] LDL Calculated 100 0 - 100 mg/dL LAB CHEMISTRY METHOD 08/17/2024 6:51 PM EDT [facility] VLDL Cholesterol Roldan 30.8 mg/dL LAB CHEMISTRY METHOD 08/17/2024 6:51 PM EDT [facility] Non HDL Chol. (LDL+VLDL) 131 <145 mg/dL LAB CHEMISTRY METHOD 08/17/2024 6:51 PM EDT [facility] Chol/HDL Ratio 3.5 0.0 - 4.4 LAB CHEMISTRY METHOD 08/17/2024 6:51 PM EDT [facility] Blood Venous blood specimen / Unknown Venipuncture / Unknown 08/17/2024 4:09 PM EDT 08/17/2024 4:09 PM EDT us Laure Ventura [facility] LAB BLOOD ORDERABLES Final Resul t [facility] [address] [place] [address], [place] [phone] * SCREENING MAMMOGRAPHY BI 2-VIEW BREAST INC CAD (09/28/2023 2:42 PM EDT) Anatomical Region Laterality Modality Radiographic Adela ging 07/27/2023 12:3 3 PM EDT Narrative 09/29/2023 11:04 AM EDT This is a summary report. The complete report is available in the patient's medical record. If you cannot access the medical record, please contact the sending organization for a detailed fax or copy. Full field digital screening tomosynthesis mammography, reviewed with CAD and compared to previous. The breasts are composed of fatty and fibroglandular tissue. No suspicious mass, architectural distortion or suspicious calcifications are identified. IMPRESSION: : No mammographic evidence of malignancy. BIRADS 1-Negative; N. 5 year breast cancer risk assessment 1.0 % Lifetime breast cancer risk assessment 3.0 % Breast cancer risk category Low (<15%) Procedure Note Vaughn Hardwick MD - 01/26/2024 This is a summary report. The complete report is available in thepatient's medical record. If you cannot access the medical record, pleasecontact the sending organization for a detailed fax or copy. Full field digital screening tomosynthesis mammography, reviewed with CADand compared to previous. The breasts are composed of fatty andfibroglandular tissue. No suspicious mass, architectural distortion orsuspicious calcifications are identified. IMPRESSION: : No mammographic evidence of malignancy. BIRADS 1-Negative; N. 5 year breast cancer risk assessment 1.0 % Lifetime breast cancer risk assessment 3.0 % Breast cancer risk category Low (<15%) Result [facility] Marcial Dodson MD IMG XR PROCEDURES Malia l Result * Colonoscopy (09/10/2023) Pathologist [facility] Colonoscopy no interpretation , abstracted Anatomical Region Laterality Modality Other [facility] Provider HEALTH MAINTENANCE Final Result * Falls Risk Assessment (07/27/2023) [facility] Falls Risk Assessment abstracted Result [facility] Provider HEALTH MAINTENANCE Final Result * Depression Screening (07/27/2023) [facility] Depression Screening abstracted Result [facility] Provider HEALTH MAINTENANCE Final Result * Hepatitis C Screening (12/22/2019) [facility] Hepatitis C Screening abstracted Result [facility] Provider HEALTH MAINTENANCE Final Result from Last 3 Months or Most Recently Relevant to Health Maintenance Insurance [employer] MED[employer]ARE Care Teams Electric Container Tester Relationship Specialty Start Date End Date Petra Arana MD [address] [place] [phone] PCP - General Internal Medicine 10/16/21
--- OUTSIDE RECORDS SUMMARY | 2024-12-26 18:59 | XMS_ITS ---
Author Name [facility] Organization Unknown Care Team Organization Name Specialty Phone Email Start Date End Da te [facility] Petra Melton Primary Care 12/17/2022 11/29/2023
== END 2024-12-26 16:17 | disposition home or self-care (01) ==
LOC: HO.HPS 15:52
PROVIDERS: PCP Internal Medicine; Visit Provider Hospitalist
DX: D86.9 Sarcoidosis, unspecified (principal); N18.9 Chronic kidney disease, unspecified; R05.3 Chronic cough; G47.33 Obstructive sleep apnea (adult) (pediatric); Z99.89 Dependence on other enabling machines and devices; R91.8 Other nonspecific abnormal finding of lung field
CPT/HCPCS: 99214; G2211

== ENCOUNTER → 2024-12-26 15:51 | Outpatient (BNVA) | payer MEDICARE, SELFPAY | PROVIDERS: PCP Internal Medicine; Visit Provider Hospitalist | DX: R05.3 Chronic cough (principal); G47.33 Obstructive sleep apnea (adult) (pediatric); Z99.89 Dependence on other enabling machines and devices; R91.8 Other nonspecific abnormal finding of lung field; D86.9 Sarcoidosis, unspecified; K46.9 Unspecified abdominal hernia without obstruction or gangrene | CPT/HCPCS: 99212 ==

== ENCOUNTER 2025-04-09 13:07 | Emergency (ER) | payer MEDICARE, SELFPAY ==
--- NOTE | ~2025-04-09 | XR_ITS ---
EXAMINATION: XR CHEST 2 VIEWS HISTORY: cough COMPARISON: Comparison is made with the prior examination dated 02/10/2024. FINDINGS: PA and lateral views of the chest are submitted. The lungs are expanded and clear. There is no pleural effusion, pneumothorax, or pulmonary vascular congestion. The heart is normal in size. The bones are intact. XR/XR chest 2V IMPRESSION: No acute cardiopulmonary abnormality. Electronically signed by: Lukas Navarrete MD 04/09/2025 02:16 PM [place]
[2025-04-09 13:57] VITALS: BP 149/71; PULSE 97; RESP 16; TEMP 36.7; O2SAT 96; BMI 28.3
--- NOTE | 2025-04-09 13:58 | ED.GENADULT ---
HPI - General Adult General Chief complaint: Upper Respiratory Symptoms Stated complaint: Coughing, headache, dizziness x 1 week Time Seen by Provider: 04/09/25 18:05 Source: patient Mode of arrival: ambulatory Limitations: no limitations History of Present Illness ED Provider: Medina Hubbard PA-C HPI narrative: Patient is a 69 year old female with a history of ADELINA and sarcoidosis presenting to the emergency department today with a cough and headache. Patient states that over the last week she has had a week of cough that is not improving. Patient states that she gets bronchitis every year. Patient denies any other complaints at this time. Onset (ago): week(s) (1) Associated symptoms: cough Related Data Home Medications ?Medication ?Instructions ?Recorded ?Confirmed ascorbate calcium (vitamin C) 500 500 mg PO DAILY 03/29/20 10/28/20 mg tablet levothyroxine 112 mcg capsule 112 mcg PO DAILY 03/29/20 10/28/20 multivitamin 1 tab PO DAILY 03/29/20 10/28/20 clobetasol 0.05 % topical ointment g topical 11/17/21 finasteride 5 mg tablet 5 mg PO DAILY 05/04/22 minoxidil 2.5 mg tablet 1.25 mg PO DAILY 05/04/22 simvastatin 10 mg tablet 10 mg PO BEDTIME 05/04/22 Previous Rx's ?Medication ?Instructions ?Recorded lorazepam 1 mg tablet (Ativan) 1 mg PO BEDTIME PRN anxiety/sleep 03/12/23 #10 tabs melatonin 5 mg capsule 5 mg PO BEDTIME PRN insomnia #30 04/24/23 caps albuterol sulfate 90 mcg/actuation 2 puff inhalation Q6H PRN 02/11/24 aerosol inhaler shortness of breath or wheezing #8.5 grams silver sulfadiazine 1 % topical 1 appl topical BID 21 days #50 11/27/24 cream (Silvadene) grams albuterol sulfate 90 mcg/actuation 1 inh inhalation QID PRN shortness 04/09/25 aerosol inhaler (Ventolin HFA) of breath or wheezing #8.5 grams azithromycin 250 mg tablet See Rx Instructions PO .COMPLEX #6 04/09/25 tabs prednisone 20 mg tablet 40 mg (2 x 20 mg) PO DAILY COPD 04/09/25 exacerbation 5 days #10 tabs Allergies Allergy/AdvReac Type Severity Reaction Status Date / Time aspirin (ASPIRIN) AdvReac Severe KIDNEY Verified 04/09/25 13:59 FAILURE/KIDNEY PROBLEMS ibuprofen (IBUPROFEN) AdvReac Intermediate KIDNEY Verified 04/09/25 13:59 PROBLEMS doxycycline AdvReac Mild Gastrointestinal Verified 04/09/25 13:59 Upset Review of Systems Constitutional: Constitutional: Reports as per HPI Eyes: Eyes: Reports as per HPI ENT: Reports as per HPI Cardiovascular: Cardiovascular: Reports as per HPI Respiratory: Respiratory: Reports as per HPI Gastrointestinal: Gastrointestinal: Reports as per HPI Genitourinary: Genitourinary: Reports as per HPI Musculoskeletal: Musculoskeletal: Reports as per HPI Integumentary/Breasts: Skin/Breast: Reports as per HPI Neurologic: Reports as per HPI Psychiatric: Psychiatric: Reports as per HPI Endocrine: Endocrine: Reports as per HPI Hematologic/Lymphatic: Hematologic/Lymphatic: Reports as per HPI Allergic/Immunologic: Allergic/Immunologic: Reports as per HPI [facility] Past Medical History Attestation statement: The following information was validated with the patient. Source: old records reviewed and nursing notes reviewed Medical History COVID-19 Reactive airway disease with wheezing with acute exacerbation Bronchopneumonia Chronic renal disease ADELINA on CPAP Pulmonary nodules Sarcoidosis Social History Social History Patient Tobacco Use Status: Never used Tobacco Advance Directives: No Advance Directives Information Provided: No Do you have a plan to hurt others: No Plan Current occupational status: retired Current occupation: left hand Physical Exam ED Vital Signs: Vital Signs - 24 hr 04/09/25 13:57 04/09/25 18:40 Temperature 98.1 F 98.1 F Pulse Rate 97 97 Respiratory Rate 16 16 Blood Pressure 149/71 H 149/71 H Pulse Oximetry 96 96 Oxygen Delivery Method Room Air BMI result Body Mass Index 28.3 Const General: cooperative, alert and awake Orientation/consciousness: patient oriented x3 HENMT Head: Yes normal to inspection and Yes atraumatic Ears: hearing grossly normal bilaterally and external ears normal General nose exam: Normal external nose present, no nasal discharge noted and no epistaxis Face and sinus: Yes normal facial exam, No abrasion and No laceration Mouth: Normal oral and palatal mucosa present, no drooling and no muffled voice Eyes General: appearance normal, both eyes and all related structures Periorbital: periorbital findings normal Eyelids: Yes eyelids normal Conjunctivae: conjunctivae normal Pupils: Equal, round and reactive pupils present EOM: EOMs intact bilaterally Resp Effort & Inspection: normal respiratory effort and able to speak in complete sentences Neuro General: patient oriented x3, moves all extremities and CN's II-XI intact bilaterally Cranial nerves: Yes Equal, round and reactive pupils present Cognition (Neuro): normal cognition Extrem General: Yes full ROM Psych Appearance: grossly normal Mental Status: mental status grossly normal Attitude: cooperative Course Course Course Narrative: Rapid medical examination performed in triage by Medina Hubbard PA-C: Patient is a 69 year old female presenting to the emergency department with a cough. Detailed physical exam and review of systems are deferred to the manager mass. Imaging and swabs ordered. Patient placed back in the waiting room pending room availability and results. Medical Decision Making Medical Decision Making [facility] Narrative: Patient is a 69 year old female with a history of ADELINA and sarcoidosis presenting to the emergency department today with a cough and headache. Patient's physical exam was as noted in the physical exam portion of this note. Patient's chest x-ray showed no acute process. Patient's COVID-19, influenza, and RSV testing was negative. I explained my physical exam findings as well as all test results to the patient. I answered all questions asked by the patient. I stressed the importance of the patient taking her medication as directed (either prescribed or as the over the counter packaging recommends). I stressed the importance of the patient following up with her primary care provider. I stressed the importance of the patient returning to the emergency department immediately if her symptoms were to worsen or if she were to develop any dizziness, shortness of breath, difficulty breathing, chest pain, blurry vision, loss of vision, nausea, vomiting, abdominal pain, fever, chills, back pain, or any other complaints. Patient verbalized agreement and understanding with this treatment plan and discharge. Differential Diagnosis Differential Diagnoses: The differential diagnosis associated with the presentation includes Bronchitis COVID-19 Influenza RSV Viral illness Atypical PNA Admission/Observation Consideration of admission/observation: Escalation of care including admission/observation considered Patient would have been admitted to the hospital had her work up had any findings where hospital admission was appropriate and her clinical presentation warranted hospital admission. Lab Data [facility] Lab Attestation statement: I reviewed the patient's lab results. My interpretation of these results are in the MDM Rationale portion of this note. Labs: Lab Results 04/09/25 Range/Units 15:43 Influenza Type A (PCR) NEGATIVE (Negative) Influenza Type B (PCR) NEGATIVE (Negative) RSV RNA Qual (PCR) NEGATIVE (Negative) SARS-CoV-2 RNA (RT-PCR) NEGATIVE (Negative) Independent Interpretation I performed an independent interpretation of an: Plain X-Ray Interpretation: My interpretation is in agreement with the radiologist's impression of this imaging study as written below. EXAMINATION: XR CHEST 2 VIEWS HISTORY: cough COMPARISON: Comparison is made with the prior examination dated 02/10/2024. FINDINGS: PA and lateral views of the chest are submitted. The lungs are expanded and clear. There is no pleural effusion, pneumothorax, or pulmonary vascular congestion. The heart is normal in size. The bones are intact. XR/XR chest 2V IMPRESSION: No acute cardiopulmonary abnormality. Electronically signed by: Lukas Navarrete MD 04/09/2025 02:16 PM EST RP Dictated By: Lukas Navarrete MD Signed By: Electronically signed by Lukas Navarrete MD 04/09/25 1416 Radiology Impression Discussion of test interpretation with radiology: I have reviewed the radiologist's reading. Prescription Management I considered prescription management with: Antibiotic (patient prescribed an antibiotic given length of symptoms) Discharge Plan Discharge Clinical Impression: Bronchitis Patient Disposition: Home, Self-Care Instructions: Acute Bronchitis (ED) Additional Instructions: Your chest x-ray showed no evidence of pneumonia. You were negative for COVID-19, Influenza, and RSV testing were negative. I am treating you for bronchitis. Take your medication as prescribed. La radiograf?a de t?rax no mostr? signos de neumon?a. Las pruebas de COVID-19, gripe y VSR dieron negativo. Le estoy tratando por bronquitis. [place] la medicaci?n seg?n lo prescrito. IF you are prescribed home medications and/or you are taking over the counter medications at home - it is very important you continue to do so as prescribed / directed unless told otherwise. SI le recetan medicamentos y/o est? tomando medicamentos de venta godwin, es muy importante que contin?e haci?ndolo seg?n lo recetado/indicado a menos que le indiquen lo contrario. Follow up with your primary care provider. Return to the emergency department immediately if your symptoms worsen or if you develop any dizziness, shortness of breath, difficulty breathing, chest pain, blurry vision, loss of vision, nausea, vomiting, abdominal pain, fever, chills, back pain, or any other complaints. Celso?seguimiento?con gomez m?dico de atenci?n primaria. Acuda inmediatamente al servicio de urgencias si carol s?ntomas empeoran o si presenta falta de aliento, dificultad para respirar, dolor tor?cico, mareos, aturdimiento, dolor de espalda, dolor abdominal, fiebre, escalofr?os o cualquier otro s?ntoma. Please see the information below about our Patient Portal. If you are not yet enrolled in the [facility] Patient Portal, you will receive an enrollment email invitation following your visit to any [facility] care setting. You may also self-enroll in the Patient Portal by visiting our website: [email or web address] The following information is required to access the Patient Portal: - Your [facility] Medical Record Number - Your personal home email address (must match what is in your electronic medical record, Registration staff can assist with this) - Name - Date of Capabilities of the Patient Portal: - Message some providers - View upcoming appointments - Access your health summary, medical history, and visit history - View current conditions and allergies - View procedure and lab results - View your medications, including guidelines, side effects, and precautions - Complete pre-appointment questionnaires requested by your provider - Ready summary reports of your office visits and procedures To access the Patient Portal Mobile Eriberto, follow these directions: - Search Weblio in the Eriberto Store or wiseri Store - Download the Eriberto - Search for [facility] - Enter your login/password Portal del paciente Si usted no esta inscrito en el portal de pacientes de [facility], recibira deyanira invitacion de inscripcion despues de gomez visita al [facility] o al [facility] via correo electronico. Tambien puede inscribirse voluntariamente en el portal de pacientes visitando nuestra pagina web: [email or web address] La siguiente informacion sera requerida para acceder al portal: - Gomez sven de historia medica de [facility] - Gomez direccion de correo electronico personal - Nombre - Fecha de nacimiento Capacidades: Las siguientes capacidades estan disponibles en el portal de pacientes: - Enviar mensajes a algunos doctores - Verificar proximas citas - Acceso a gomez historial de michael, registro medico e historial de visitas - Sean las condiciones actuales y alergias sean procedimientos y resultados del laboratorio - Sean carol medicamentos, incluyendo las pautas - Efectos secundarios y precauciones - Completar o llenar formularios / cuestionarios de - Citas solicitadas por gomez doctor - Leer los resumenes de reportes medicos de carol visitas y procedimientos [place] acceder a la aplicacion movil: - Busque [employer] en la Eriberto Store o Google [email or web address] Store - Descargue la aplicacion - [facility] - Ingrese gomez nombre de usuario / Contrasena Prescriptions: New azithromycin 250 mg tablet See Rx Instructions .ROUTE .COMPLEX Qty: 6 0RF Rx Instructions: For 250 mg dose pack: take 500 mg today (day 1), then 250 mg for 4 days (days 2-5) prednisone 20 mg tablet 40 mg PO DAILY 5 Days Qty: 10 0RF albuterol sulfate [Ventolin HFA] 90 mcg/actuation HFA aerosol inhaler 1 inh inhalation QID PRN (Reason: shortness of breath or wheezing) Qty: 8.5 0RF No Action albuterol sulfate 90 mcg/actuation HFA aerosol inhaler 2 puff inhalation Q6H PRN (Reason: shortness of breath or wheezing) Qty: 8.5 0RF silver sulfadiazine [Silvadene] 1 % cream 1 appl topical BID 21 Days Qty: 50 1RF Rx Instructions: apply a 1.5 mm thickness lorazepam [Ativan] 1 mg tablet 1 mg PO BEDTIME PRN (Reason: anxiety/sleep) Qty: 10 0RF melatonin 5 mg capsule 5 mg PO BEDTIME PRN (Reason: insomnia) Qty: 30 0RF levothyroxine 112 mcg capsule 112 mcg PO DAILY ascorbate calcium (vitamin C) 500 mg tablet 500 mg PO DAILY multivitamin Tablet 1 tab PO DAILY ipratropium-albuterol 0.5 mg-3 mg(2.5 mg base)/3 mL solution for nebulization 3 ml inhalation ONCE Qty: 3 0RF clobetasol 0.05 % ointment topical simvastatin 10 mg tablet 10 mg PO BEDTIME minoxidil 2.5 mg tablet 1.25 mg PO DAILY finasteride 5 mg tablet 5 mg PO DAILY Referrals: Petra Melton MD [Primary Care Provider, Internal Medicine] Interventions: ED Discharge Assessment Last Done: 04/09/25 18:40 Discharge Date/Time: 04/09/25 18:40 Print Language: Other
[2025-04-09 17:01] LABS: Resp Syncy Virus RNA Qual PCR NEGATIVE (Negative); SARS COV2 PCR INHOUSE NEGATIVE (Negative)
--- OUTSIDE RECORDS SUMMARY | 2025-04-09 18:27 | XMS_ITS | Encounter Summary ---
Author Organization [facility] Prior to 02/11/2024 Address [address] [place] [address] Care Team Providers Care Cardboard Cutter Name Role Phone Janell Bailon DO Primary Care Pro vider Unavailable Herve Carlos MD Primary Care Provider [phone] Janell Bailon DO Primary Care Pro vider Unavailable Marcelo Benitez MD Primary Care Provider Petra Kim MD Primary Care Prov ider Encounter Details Date Type Department Care Team Description 05/14/2016 Release of Information Medical Records [address] [place] [id number] Abstract, Provider Social History Tobacco Use Types Packs/Day Years Used Date Smoking Tobacco: Never Smokeless Tobacco: Never Alcohol Use Standard Drinks/Week Comments No 0 (1 standard drink = 0.6 oz pur e alcohol) Sex Assigned at Date Recorded Not on file Job Start Date Occupation Industry Not on file Not on file Not on file documented as of this encounter Plan of Treatment Not on file documented as of this encounter Visit Diagnoses Not on filedocumented in this encounter Care Teams Cardboard Cutter Relationship Specialty Start Date End Date Janell Bailon DO PCP - General Internal Medicine 06/03/15 07/04/18 Herve Carlos MD [address], [place] [phone] PCP - General Internal Medicine 07/05/18 08/29/18 Janell Bailon DO PCP - General Internal Medicine 08/30/18 03/18/21 Marcelo Benitez MD [address] [place] [address] PCP - General Internal Medicine 03/19/21 10/15/21 Petra Melton MD [address] [place] [address] PCP - General Internal Medicine 10/16/21 documented as of this encounter
--- OUTSIDE RECORDS SUMMARY | 2025-04-09 18:27 | XMS_ITS | Encounter Summary ---
Author Organization [facility] Prior to 02/11/2024 Address [address] [place] [address] Care Team Providers Care Stock Feeder Name Role Phone Janell Bailon DO Primary Care Pro vider Unavailable Herve Carlos MD Primary Care Provider [phone] Janell Bailon DO Primary Care Pro vider Unavailable Marcelo Benitez MD Primary Care Provider Petra Kim MD Primary Care Prov ider Encounter Details Date Type Department Care Team Description 10/26/2017 Nurse Educator Report Medical Records [address] [place] [id number] Reg Pineda Social History Tobacco Use Types Packs/Day Years [...] on filedocumented in this encounter Care Teams Stock Feeder Relationship Specialty Start Date End Date Janell Bailon DO PCP - General Internal Medicine 06/03/15 07/04/18 Herve Carlos MD [address] [place], [place] [phone] PCP - General Internal Medicine 07/05/18 08/29/18 Janell Bailon DO PCP - General Internal Medicine 08/30/18 03/18/21 Marcelo Benitez MD [address] [place] [address] PCP - General Internal Medicine 03/19/21 10/15/21 Petra Melton MD [address] [place] [address] PCP - General Internal Medicine 10/16/21 documented as of this encounter
--- OUTSIDE RECORDS SUMMARY | 2025-04-09 18:27 | XMS_ITS | Encounter Summary ---
Author Organization [facility] Prior to 02/11/2024 Address [address] [place] [address] Care Team Providers Care Coffee Machine Technician Name Role Phone Priscila Farah MD Primary Care Provider Unavail able Community, Pcp Primary Care Provider Unavailabl e Training, Med Ped Provider Primary Care Provider Unavailable [facility], Pcp Primary Care Provider Unavailabl e Janell Bailon DO Primary Care Pro vider Unavailable Herve Carlos MD Primary Care Provider Janell Bailon DO Primary Care Pro vider Unavailable Marcelo Benitez MD Primary Care Provider Petra Kim MD Primary Care Prov ider Encounter Details Date Type Department Care Team Description 02/12/2014 Release of Information Medical Records [address] [place] [id number] Abstract, Provider Social History Tobacco Use Types [...] on filedocumented in this encounter Care Teams Coffee Machine Technician Relationship Specialty Start Date End Date Priscila Farah MD PCP - General 06/02/06 11/29/14 Community, Pcp PCP - General Internal Medicine 11/30/14 05/12/15 Training, Med Ped Provider PCP - General Med/Peds 05/13/15 [facility], Pcp PCP - General Internal Medicine 05/28/15 06/02/15 Janell Bailon DO PCP - General Internal Medicine 06/03/15 07/04/18 Herve Carlos MD [address] [place] [address] PCP - General Internal Medicine 07/05/18 08/29/18 Janell Bailon DO PCP - General Internal Medicine 08/30/18 03/18/21 Marcelo Benitez MD [address] [place] [address] PCP - General Internal Medicine 03/19/21 10/15/21 Petra Melton MD [address] [place] [address] PCP - General Internal Medicine 10/16/21 documented as of this encounter
--- OUTSIDE RECORDS SUMMARY | 2025-04-09 18:27 | XMS_ITS | Encounter Summary ---
Author Organization [facility] Prior to 02/11/2024 Address [address] [place] [address] Care Team Providers Care Secondary Social Studies Teacher Name Role Phone Janell Bailon DO Primary Care Pro vider Unavailable Herve Carlos MD Primary Care Provider [phone] Janell Bailon DO Primary Care Pro vider Unavailable Marcelo Benitez MD Primary Care Provider Petra Kim MD Primary Care Prov ider Encounter Details Date Type Department Care Team Description 03/22/2018 Chemical Engineer Report Medical Records [address] [place] [id number] Tess Collado NP Social History Tobacco Use Types Packs/Day Years [...] on filedocumented in this encounter Care Teams Secondary Social Studies Teacher Relationship Specialty Start Date End Date Janell Bailon DO PCP - General Internal Medicine 06/03/15 07/04/18 Herve Carlos MD [address] [place], [place] [phone] PCP - General Internal Medicine 07/05/18 08/29/18 Janell Bailon DO PCP - General Internal Medicine 08/30/18 03/18/21 Marcelo Benitez MD [address] [place] [address] PCP - General Internal Medicine 03/19/21 10/15/21 Petra Melton MD [address] [place] [address] PCP - General Internal Medicine 10/16/21 documented as of this encounter
--- OUTSIDE RECORDS SUMMARY | 2025-04-09 18:27 | XMS_ITS | Encounter Summary ---
Author Organization [facility] Prior to 02/11/2024 Address [address] [place] [address] Care Team Providers Care Assistant Store Manager Name Role Phone Janell Bailon DO Primary Care Pro vider Unavailable Herve Carlos MD Primary Care Provider [phone] Janell Bailon DO Primary Care Pro vider Unavailable Marcelo Benitez MD Primary Care Provider Petra Kim MD Primary Care Prov ider Encounter Details Date Type Department Care Team Description 11/29/2017 Control Systems Eng Report Medical Records [address] [place] [id number] Tess Collado NP Social History Tobacco Use [...] on filedocumented in this encounter Care Teams Assistant Store Manager Relationship Specialty Start Date End Date Janell Bailon DO PCP - General Internal Medicine 06/03/15 07/04/18 Herve Carlos MD [address] [place], [place] [phone] PCP - General Internal Medicine 07/05/18 08/29/18 Janell Bailon DO PCP - General Internal Medicine 08/30/18 03/18/21 Marcelo Bneitez MD [address] [place] [address] PCP - General Internal Medicine 03/19/21 10/15/21 Petra Melton MD [address] [place] [address] PCP - General Internal Medicine 10/16/21 documented as of this encounter
--- OUTSIDE RECORDS SUMMARY | 2025-04-09 18:27 | XMS_ITS | Encounter Summary ---
Author Organization [facility] Prior to 02/11/2024 Address [address] [place] [address] Care Team Providers Care Adjustment Examiner Name Role Phone Janell Bailon DO Primary Care Pro vider Unavailable Herve Carlos MD Primary Care Provider [phone] Janell Bailon DO Primary Care Pro vider Unavailable Marcelo Benitez MD Primary Care Provider Petra Kim MD Primary Care Prov ider Encounter Details Date Type Department Care Team Description 05/11/2017 Telephone Adult Medicine [address] [address] Janell Bailon DO Social History Tobacco Use Types Packs/Day Years Used Date Smoking Tobacco: Never Smokeless Tobacco: Never Alcohol Use Standard Drinks/Week Comments No 0 (1 standard drink = 0.6 oz pur e alcohol) Sex Assigned at Date Recorded Not on file Job Start Date Occupation Industry Not on file Not on file Not on file documented as of this encounter Miscellaneous Notes * Telephone Encounter - Cheli Boston M.A. - 05/14/2017 12:40 PM EST Pt made aware of results she advises me that she does not have problems swallowing or breathing. I advised her if sx change to call our office back. Pt has fu appt with pcp 08/02/17 * Telephone Encounter - Maria E Oseguera C.M.A. - 05/11/2017 2:30 PM EST Left message for pt to call back Maria E FLOWER [phone] * Telephone Encounter - Janell Lazo DO - 05/11/2017 1:[address] irizarry did CT of her lung that incidentally noted very large thyroid substernal. Any difficulty swallowing, breathing etc? Will order thyroid us. Has fu w/ me in july documented in this encounter Plan of Treatment Not on file documented as of this encounter Results * US SOFT TISSUE HEAD/NECK (11/01/2017 9:02 AM EDT) 11/01/2017 9:03 AM EDT Impressions JEREL CHAVIRA OTHER EXTERNAL - 11/01/2017 9:04 AM EDT IMPRESSION: Moderately enlarged thyroid gland with heterogeneous echotexture. No discrete thyroid nodules. 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 No discrete thyroid nodules are identified. Right lobe volume 15.0 cc, isthmus measures 1.1 cm and left lobe volume 14.7 cc. 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 No discrete thyroid nodules are identified. Right lobe volume 15.0 cc, isthmus measures 1.1 cm and left lobe rkezee25.7 cc. IMPRESSION IMPRESSION: Moderately enlarged thyroid gland with heterogeneousechotexture. No discrete thyroid nodules. Janell Krakowiak Colasacco DO [facility] OTHER EXTERNAL documented in this encounter Visit Diagnoses Diagnosis Goiter- Primary Goiter, unspecified Goiter Goiter, unspecified documented in this encounter Care Teams Adjustment Examiner Relationship Specialty Start Date End Date Janell Bailon DO PCP - General Internal Medicine 06/03/15 07/04/18 Herve Carlos MD [address] [place] [address] PCP - General Internal Medicine 07/05/18 08/29/18 Janell Bailon DO PCP - General Internal Medicine 08/30/18 03/18/21 Marcelo Benitez MD [address] [place] [address] PCP - General Internal Medicine 03/19/21 10/15/21 Petra Melton MD [address] [place] [id number] PCP - General Internal Medicine 10/16/21 documented as of this encounter
--- OUTSIDE RECORDS SUMMARY | 2025-04-09 18:27 | XMS_ITS | Encounter Summary ---
Author Organization [facility] [employer] [facility] Prior to 02/11/2024 Address [address] [place] [address] Care Team Providers Care Pick Pulling Machine Operator Name Role Phone Petra Melton MD Primary Care Prov ider Encounter Details Date Type Department Care Team Description 11/26/2022 Street Light Repairer Report Medical Records [address] [place] [address] Dayna Marcelo PA-C Social History Tobacco Use Types Packs/Day Years [...] on filedocumented in this encounter Care Teams Pick Pulling Machine Operator Relationship Specialty Start Date End Date Petra Melton MD [address] [place] [address] PCP - General Internal Medicine 10/16/21 documented as of this encounter
--- OUTSIDE RECORDS SUMMARY | 2025-04-09 18:27 | XMS_ITS | Encounter Summary ---
Author Organization [facility] Prior to 02/11/2024 Address [address] [place] [address] Care Team Providers Care Highway Maintainer Name Role Phone Janell Bailon DO Primary Care Pro vider Unavailable Herve Carlos MD Primary Care Provider [phone] Janell Bailon DO Primary Care Pro vider Unavailable Marcelo Benitez MD Primary Care Provider Petra Kim MD Primary Care Prov ider Encounter Details Date Type Department Care Team Description 12/06/2015 Code Inspector Report Medical Records [address] [place], [place] [id number] [place] [address] Social History Tobacco Use Types Packs/Day Years [...] on filedocumented in this encounter Care Teams Highway Maintainer Relationship Specialty Start Date End Date Janell Bailon DO PCP - General Internal Medicine 06/03/15 07/04/18 Herve Carlos MD [address] [place], [place] [phone] PCP - General Internal Medicine 07/05/18 08/29/18 Janell Bailon DO PCP - General Internal Medicine 08/30/18 03/18/21 Marcelo Benitez MD [address] [place] [address] PCP - General Internal Medicine 03/19/21 10/15/21 Petra Melton MD [address] [place] [phone] PCP - General Internal Medicine 10/16/21 documented as of this encounter
--- OUTSIDE RECORDS SUMMARY | 2025-04-09 18:27 | XMS_ITS | Encounter Summary ---
Author Organization [facility] Prior to 02/11/2024 Address [address] [place] [address] Care Team Providers Care Regional Account Director Name Role Phone Petra Melton MD Primary Care Prov ider Encounter Details Date Type Department Care Team Description 09/14/2023 Orders Only Medical Records [address] [place] [address] Eda Gonzales MD [address] [place] [address] Social History Tobacco Use Types Packs/Day Years Used Date Smoking Tobacco: Never Smokeless Tobacco: Never Alcohol Use Standard Drinks/Week Comments No 0 (1 standard drink = 0.6 oz pur e alcohol) Sex Assigned at Date Recorded Not on file Job Start Date Occupation Industry Not on file Not on file Not on file documented as of this encounter Progress Notes * Mitchell Gonzales MD - 09/27/2023 7:27 PM EDT Dear Ms. Marinelli, The biopsy of the lesion that was removed from your colon is benign. Your bowel prep was inadequate therefore please call the office to have your procedure scheduled with 2-day bowel prep. I would like to personally thank you for allowing us to take care of you. Please don't hesitate to call us for any questions or concerns. Regards, Allen Gonzales MD Board Certified Gastroenterology and Internal Medicine Transplant Hepatology [facility] documented in this encounter Plan of Treatment Not on file documented as of this encounter Procedures Procedure Name Priority Date/Time Associated Diagnosis Comments OUTSIDE COLONOSCOPY Routine 09/10/2023 OUTSIDE PATHOLOGY Routine 09/10/2023 documented in this encounter Results * OUTSIDE COLONOSCOPY (09/10/2023) Eda Gonzales MD RADIOLOGY * OUTSIDE PATHOLOGY (09/10/2023) Eda Gonzales MD OUTSIDE LAB documented in this encounter Visit Diagnoses Not on filedocumented in this encounter Care Teams Regional Account Director Relationship Specialty Start Date End Date Petra Melton MD [address] [place] [id number] PCP - General Internal Medicine 10/16/21 documented as of this encounter
--- OUTSIDE RECORDS SUMMARY | 2025-04-09 18:27 | XMS_ITS | Clinical Summary ---
Author Organization [facility] [address] [facility] Address [address] [place] [address] Phone Care Team Providers Care Insurance Case Manager Name Role Phone Petra Arana MD Primary [...] by mouth at bedtime as needed. Active finasteride (PROSCAR) 5 mg tablet Take 1 tablet (5 mg total) by mouth 1 (one) time each day. Do not crush, chew, or split. 90 each 3 5 08/22/19 26 Active clobetasoL (TEMOVATE) 0.05 % ointment Apply twice weekly 60 g 5 Active levothyroxine (SYNTHROID, LEVOTHROID) 112 mcg tablet TAKE 1 TABLET BY MOUTH DAILY 90 tablet 1 5 Active amitriptyline (ELAVIL) 25 mg tablet TAKE 1 TABLET(25 MG) BY MOUTH AT BEDTIME 30 tablet 5 Active simvastatin (ZOCOR) 10 mg tablet TAKE 1 TABLET(10 MG) BY MOUTH AT BEDTIME 90 tablet 5 Active levothyroxine (SYNTHROID, LEVOTHROID) 112 mcg tablet Take 1 tablet (112 mcg total) by mouth 1 (one) time each day. 90 tablet 1 5 03/19/20 25 Discontinued simvastatin (ZOCOR) 10 mg tablet Take 1 tablet (10 mg total) by mouth at bedtime. 90 tablet 1 5 04/09/20 25 Discontinued amitriptyline (ELAVIL) 25 mg tablet TAKE 1 TABLET(25 MG) BY MOUTH AT BEDTIME 30 tablet 1 5 03/21/20 25 Discontinued Active Problems Problem Noted Date Diagnosed Date CKD (chronic kidney disease) stage 2, GFR 60-89 ml/min 01/23/2025 Primary hypertension 01/23/2025 Venous insufficiency (chronic) (peripheral) 12/11 ADELINA on [...] kidney disease) stage 3, GFR 30-59 ml/min 04/28/2013 Rectal ulcer 02/24/2011 Overview (02/22/2024): colonscopy and bx 02/24/2011, bx showed normal colonic mucosa. 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5mL [...] Site/Laterality Comments COLONOSCOPY W/ BIOPSIES 02/24/2011 PROCEDURE: NC COLONOSCOPY W/BIOPSY SINGLE/MULTIPLE; COMMENT: rectal ulcer, bx [...] on file Sexual Orientation Not on file Last Filed Vital Signs Vital Sign Reading Time Taken Comments Blood Pressure 136/70 01/23/2025 3:37 PM EDT Pulse 83 01/23/2025 3:37 PM EDT Temperature 36.6 C (97.8 F) 08/21/2024 1:09 PM EDT Respiratory Rate 15 08/21/2024 1:09 PM EDT Oxygen Saturation - - Inhaled Oxygen Concentration - - Weight 69 kg (152 lb 1.6 oz) 01/23/2025 3:37 PM EDT Height 162.6 cm (5' 4 ) 08/21/2024 1:09 PM EDT Body Mass Index 26.11 08/21/2024 1:09 PM EDT Plan of Treatment Upcoming Encounters Date Type Department Care Team (Late st Contact Info) Description 01/30/2026 4:30 PM EDT Office Visit Nephrology - [place] [address] [place] [address] Taras Meredith MD [address] [facility] [address] [place] [address] Health Maintenance Due Date Last Done Comments [...] 09/28/19 24, 09/28/2023, 02/16/2019, Additional history exists Hypertension/CHF/CAD Annual BMP Blood Test 01/18/2026 01/18/2025, 08/17/2024, 2023 RSV Immunization Adult Patients (1 - 1-dose [...] Procedure Name Priority Date/Time Associated Diagnosis Comments MICROALBUMIN CREATININE URINE RATIO Routine 01/18/2025 4:13 PM EDT Stage 3 chronic kidney disease, unspecified whether stage 3a or 3b CKD ([facility]/HCC V24, [facility] V28) RENAL FUNCTION PANEL Routine 01/18/2025 4:13 PM EDT Stage 3 chronic kidney disease, unspecified whether stage 3a or 3b CKD (CMS/HCC V24, CMS/[facility] V28) PROTEIN AND CREATININE WITH RATIO, URINE Routine 01/18/2025 4:13 PM EDT Stage 3 chronic kidney disease, unspecified whether stage 3a or 3b CKD ([facility]/HCC V24, CMS/[facility] V28) LIPID PANEL WITH REFLEX TO DIRECT LDL [...] Recently Relevant to Health Maintenance Results * Protein and creatinine with ratio, urine (01/18/2025 4:13 PM EDT) Protein, Urine 11 mg/dL LAB CHEMISTRY METHOD 01/18/2025 6:52 PM EDT [facility] Prot/Creat, Ur 0.20 <=0.20 mg/mg creat LAB CHEMISTRY METHOD 01/18/2025 6:52 PM EDT [facility] Creatinine, Urine 54.0 mg/dL LAB CHEMISTRY METHOD 01/18/2025 6:52 PM T [facility] Urine Urine specimen obtained by clean catch procedure / Unknown Non-blood Collection / Unknown 01/18/2025 4:13 PM EDT 01/18/2025 4:13 PM EDT us Taras Meredith MD LAB URINE ORDERABLES Final Resu lt Performing Organization Address City/[facility]/ZIP Co de Phone Number [facility] [address] [place] [address], [place] [phone] * Microalbumin creatinine urine ratio (01/18/2025 4:13 PM EDT) Creatinine, Urine 54.0 mg/dL LAB CHEMISTRY METHOD 01/18/2025 7:01 PM EDT [facility] Microalb, Ur 10.5 0.0 - 29.0 mg/L LAB CHEMISTRY METHOD 01/18/2025 7:01 PM EDT [facility] Microalb/Creat Ratio 19 <30 mg/g creat LAB CHEMISTRY METHOD 01/18/2025 7:01 PM EDT [facility] Urine Urine specimen obtained by clean catch procedure / Unknown Non-blood Collection / Unknown 01/18/2025 4:13 PM EDT 01/18/2025 4:13 PM EDT us Taras Meredith MD LAB URINE ORDERABLES Final Resu lt Performing Organization Address [facility]/ZIP Co de Phone Number [facility] [address] [place] [address], [place] [phone] * (ABNORMAL) Renal function panel (01/18/2025 4:13 PM EDT) Sodium 137 133 - 145 mmol/L LAB CHEMISTRY METHOD 01/18/2025 7:06 PM EDT [facility] Potassium 3.9 3.5 - 5.5 mmol/L LAB CHEMISTRY METHOD 01/18/2025 7:06 PM EDT [facility] Chloride 102 96 - 110 mmol/L LAB CHEMISTRY METHOD 01/18/2025 7:06 PM EDT [facility] CO2 30 21 - 32 mmol/L LAB CHEMISTRY METHOD 01/18/2025 7:06 PM [facility] Anion Gap 5 3 - 11 LAB CHEMISTRY METHOD 01/18/2025 7:06 PM [facility] Glucose 82 70 - 100 mg/dL LAB CHEMISTRY METHOD 01/18/2025 7:06 PM [facility] BUN 36(H) 5 - 25 mg/dL LAB CHEMISTRY METHOD 01/18/2025 7:06 PM [facility] Creatinine 1.00 0.50 - 1.10 mg/dL LAB CHEMISTRY METHOD 01/18/2025 7:06 PM [facility] eGFR 61 >=60 mL/min/1. 73m2 LAB CHEMISTRY METHOD 01/18/2025 7:06 PM [facility] Comment:Calculation based on the Chronic Kidney Disease Epidemiology Collaboration (CKD-EPI) equation refit without adjustment for race. BUN/Creatinine Ratio 36.0 LAB CHEMISTRY METHOD 01/18/2025 7:06 PM [facility] Albumin 4.0 3.2 - 5.0 g/dL LAB CHEMISTRY METHOD 01/18/2025 7:06 PM [facility] Calcium 9.5 8.5 - 10.5 mg/dL LAB CHEMISTRY METHOD 01/18/2025 7:06 PM [facility] Phosphorus 3.8 2.5 - 4.5 mg/dL LAB CHEMISTRY METHOD 01/18/2025 7:06 PM [facility] Blood Venous blood specimen / Unknown Venipuncture / Unknown 01/18/2025 4:13 PM EDT 01/18/2025 4:13 PM EDT us Taras Meredith MD LAB BLOOD ORDERABLES Final Resu lt [facility] [address] [place] [address], [place] [phone] * (ABNORMAL) Lipid panel with reflex to direct LDL (08/17/2024 4:09 PM EDT) Cholesterol 184 0 - 200 mg/dL LAB CHEMISTRY METHOD 08/17/2024 6:51 PM EDT [facility] Triglycerides 154(H) 0 - 150 mg/dL LAB CHEMISTRY METHOD 08/17/2024 6:51 PM EDT [facility] HDL 53 >=40 mg/dL LAB CHEMISTRY METHOD 08/17/2024 6:51 PM EDT [facility] LDL Calculated 100 0 - 100 mg/dL LAB CHEMISTRY METHOD 08/17/2024 6:51 PM EDT [facility] VLDL Cholesterol Roldan 30.8 mg/dL LAB CHEMISTRY METHOD 08/17/2024 6:51 PM EDT [facility] Non HDL Chol. (LDL+VLDL) 131 <145 mg/dL LAB CHEMISTRY METHOD 08/17/2024 6:51 PM EDT [facility] Chol/HDL Ratio 3.5 0.0 - 4.4 LAB CHEMISTRY METHOD 08/17/2024 6:51 PM EDT [facility] Blood Venous blood specimen / Unknown Venipuncture / Unknown 08/17/2024 4:09 PM EDT 08/17/2024 4:09 PM EDT us Laure Ventura MUNGUIA LAB BLOOD ORDERABLES Final Resul t [facility] [address] [place] [address], [place] [phone] * SCREENING MAMMOGRAPHY BI 2-VIEW BREAST INC [...] Breast cancer risk category Low (<15%) Result [facility] Marcial Dodson MD IMG XR PROCEDURES Malia l Result * Colonoscopy (09/10/2023) [facility] Colonoscopy no interpretation , abstracted Anatomical Region Laterality Modality Other [facility] Provider HEALTH MAINTENANCE Final Result * Falls Risk Assessment (07/27/2023) [facility] Falls Risk Assessment abstracted Result [facility] Provider HEALTH MAINTENANCE Final Result * Depression Screening (07/27/2023) [facility] Depression Screening abstracted Result [facility] Provider HEALTH MAINTENANCE Final Result * Hepatitis C Screening (12/22/2019) [facility] Hepatitis C Screening abstracted us Historical Provider HEALTH MAINTENANCE Final Result from Last 3 Months or Most Recently Relevant to Health Maintenance Insurance [employer] MED[employer]ARE Care Teams Insurance Case Manager Relationship Specialty Start Date End Date Petra Arana MD [address] [place] [phone] PCP - General Internal Medicine 10/16/21
--- OUTSIDE RECORDS SUMMARY | 2025-04-09 18:27 | XMS_ITS | Encounter Summary ---
Author Organization [facility] Prior to 02/11/2024 Address [address] [place] [address] Care Team Providers Care Underground Drill Operator Name Role Phone Petra Melton MD Primary Care Prov ider Reason for Visit * Reason Onset Date Comments Medication 01/21/2024 Encounter Details Date Type Department Care Team Description 01/21/2024 Refill Gastroenterology [address] [place] [phone] Eda Gonzales MD [address] [place] [phone] Medication Social History Tobacco Use Types Packs/Day Years [...] on filedocumented in this encounter Care Teams Underground Drill Operator Relationship Specialty Start Date End Date Petra Melton MD [address] [place] [phone] PCP - General Internal Medicine 10/16/21 documented as of this encounter
--- OUTSIDE RECORDS SUMMARY | 2025-04-09 18:27 | XMS_ITS | Clinical Summary ---
Author Organization [facility] Prior to 02/11/2024 Address [address] [place] [address] Care Team Providers Care Oceanic Sciences Professor Name Role Phone Petra Melton MD Primary Care Prov ider Allergies Active Allergy Reactions Severity Noted Date Comments Seasonal Allergies 08/20/2016 Medications Medication Sig Dispensed Refills Start Date End Date Status Ascorbic Acid (VITAMIN C) 1000 MG tablet Take 1,000 mg by mouth daily. 0 Active Cyanocobalamin (VITAMIN B-12 CR OR) Take by mouth. 0 Active finasteride (PROSCAR) 5 MG tablet Take 0.5 Tablets by mouth daily. 0 07/19/2020 Active Melatonin 2.5 MG Cap Take 5 mg by mouth at bedtime as needed. 0 Active simvastatin (ZOCOR) 10 MG tablet Take 1 Tablet by mouth at bedtime. 90 Tablet 1 07/27/2023 Active levothyroxine 112 MCG tabletIndications:Ac quired hypothyroidism Take 1 Tablet by mouth daily. 90 Tablet 1 07/27/2023 Active loratadine (Claritin) 10 MG tablet Take 1 Tablet by mouth daily. 90 Tablet 1 07/27/2023 Active Na Sulfate-K Sulfate-Mg Sulf (Suprep Bowel Prep Kit) 17.5-3.13-1.6 GM/177ML Solution Take 177 mL by mouth See Admin Instructions for 2 doses. 254 mL 0 01/21/2024 Active Active Problems Problem Noted Date Venous insufficiency (chronic) (peripher al) 12/26/2021 ADELINA on CPAP 08/02/2020 Vulvar lesion 11/23/2018 Last Assessment & Plan: Pt counseled that vulvar lesion she describes has resolved and she can discontinue cream. She was relieved. Hypothyroidism 10/25/2017 Mixed hyperlipidemia 05/03/2017 Pulmonary nodules 04/29/2017 Alopecia 03/13/2016 PTSD (post-traumatic stress disorder) Depression, major 05/19/2013 CKD (chronic kidney disease) stage 3, GF R 30-59 ml/min 04/28/2013 Rectal ulcer 02/24/2011 Overview: colonscopy and bx 02/24/2011, bx showed normal colonic mucosa. 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 IMO Update Fall 2015 SOB (shortness of breath) 05/23/20102014 Overview: 03/24-Normal Exercise nuclear stress test without evidence of ischemia or infarction. Left ventricular systolic function normal, with ejection fraction of 69% 04/22-technically adequate normal M-mode, 2D and color flow Doppler echocardiogram with the incidental finding of trace mitral regurgitation 04/22- mibi nad 04/22- venous doppler negative SOB (shortness of breath) 05/02/20102010 Overview: 04/22- echo normal ef technically adequate normal M-mode, 2D and color flow Doppler echocardiogram with the incidental finding of trace mitral regurgitation 04/22-Extensive mediastinal and hilar adenopathy. There is paratracheal, precarinal, AP window and subcarinal lymphadenopathy. Differential includes sarcoidosis and lymphoma. Substernal goiter. 04/22-Normal myocardial perfusion imaging Left ventricular systolic function normal, with ejection fraction of 60%. 05/23-Normal flow rates pre and post bronchodilator, normal static lungvolumes and normal diffusing capacity. 02 saturation, resting on room air, was normal at 98 Immunizations Name Administration Dates Next Due COVID-19 (Pfizer) Pt Reported 03/04/2021 Influenza (> 6 Months) 01/18/2015,2013,01/10/2013,03/24 Influenza Flu (PT Reported) 03/27/2017 Influenza vaccine high dose age 65 and over 12/26/2021,03/19/2021 PREVNAR 20 07/27/2023 Pneumoccoccal(Adult) Polysac charide PPSV23 12/07/2010 Tdap 07/27/2023,08/08/2009 Family History Medical History Relation Name Comments No Known Problems Brother No Known Problems Daughter Diabetes Father No Known Problems Maternal Grandfather No Known Problems Maternal Grandmother Cirrhosis Mother No Known Problems Other No Known Problems Paternal Grandfather No Known Problems Paternal Grandmother Cirrhosis Sister CA Breast Negative Hx CA Colon Negative Hx CA Ovarian Negative Hx Relation Name Status Comments Brother Alive [...] file Not on file Not on file Last Filed Vital Signs Vital Sign Reading Time Taken Comments Blood Pressure 126/77 12/01/2023 3:49 PM EDT Pulse 74 12/01/2023 3:49 PM EDT Temperature 36.3 C (97.4 F) 09/28/2023 3:02 PM EDT Respiratory Rate 14 09/28/2023 3:02 PM EDT Oxygen Saturation 98% 07/27/2023 11:46 AM EDT Inhaled Oxygen Concentration - - Weight 67.8 kg (149 lb 6.4 oz) 12/01/2023 3:49 P M EDT Height 162.6 cm (5' 4 ) 09/28/2023 3:02 PM EDT Body Mass Index 25.64 09/28/2023 3:02 PM EDT Plan of Treatment Health Maintenance Due Date Last Done Comments SHINGLES VACCINE (1 of 2) 2004 BONE DENSITY SCREENING 07/31/2019 08/23/2009 BMI CHECK/ADVISE 04/12/2024 12/01/2023, (Completed), 02/24/2023, Additional history exists DEPRESSION SCREENING/FOLLOWUP 04/12/2024 (Completed), 05/29/2022 (Completed), 09/29/2021 (Completed), Additional history exists DEPRESSION SCREEN 07/26/2024 07/27/2023, , 12/26/2021 FALL RISK ASSESSMENT 07/26/2024 07/27/2023, 12/27/19 22 MAMMOGRAM 09/27/2024 09/28/2023, 10/2018, 02/10/2018, Additional history exists Covid-19 Vaccine (2 - 2022-2 4 season) 2024 03/04/2021 INFLUENZA (#1) 2024 12/26/2021, 11/2020, 02/10/2019 (External Completion of Vaccination per patient), Additional history exists CHOLESTEROL SCREENING 07/29/2028 2023 , 09/29/2021, 09/20/2020, Additional history exists DTAP/TDAP/TD (3 - Td or Tdap) 07/26/2033 07/27/2023, 08/08/2009 COLON CANCER SCREENING 09/09/2033 , 02/24/2011, 02/24/2011 HEPATITIS C SCREENING Completed 12/22/2019 , 04/19/2017, 01/17/2014 PNEUMOCOCCAL VACCINE Completed 07/27/2023, 12/08/19 11 Care Teams Oceanic Sciences Professor Relationship Specialty Start Date End Date Petra Melton MD [address] [place] [id number] PCP - General Internal Medicine 10/16/21
--- OUTSIDE RECORDS SUMMARY | 2025-04-09 18:27 | XMS_ITS | Encounter Summary ---
Author Organization [facility] [employer] [facility] Prior to 02/11/2024 Address [address] [place] [address] Care Team Providers Care Cleaning Technician Name Role Phone Janell Bailon DO Primary Care Pro vider Unavailable Marcelo Benitez MD Primary Care Provider Petra Kim MD Primary Care Prov ider Encounter Details Date Type Department Care Team Description 04/18/2019 Orders Only Nephrology - [place] [address] [place] [address] Taras Meredith MD [address] [place] [address] Chronic kidney disease, stage III (moderate) (HCC) (Primary Dx) Social History Tobacco Use Types Packs/Day Years [...] documented as of this encounter Results * MICROALBUMIN/CREATININE, URINE (04/18/2019 4:13 PM EST) CREATININE, RANDOM URINE 24 mg/dL 04/18/2019 6:35 PM EST [facility] MICROALBUMIN, RANDOM < 5.0 0.0 - 29.0 mg/L 04/18/2019 6:45 PM EST [facility] MICROALB/CRE RATIO RANDOM < 20.8 0.0 - 30.0 mg/G 04/18/2019 6:45 PM EST [facility] 04/18/2019 4:13 PM EST 04/18/2019 4:14 PM EST Taras Meredith MD LAB Performing Organization Address [facility] Co de Phone Number [facility] * PTH INTACT (04/18/2019 4:13 PM EST) INTACT PTH 75 18 - 88 pg/mL 04/18/2019 7:10 PM EST [facility] 04/18/2019 4:13 PM EST 04/18/2019 4:14 PM EST Taras Meredith MD LAB Performing Organization Address [facility] Phone Number [facility] * 25 HYDROXY INCLUDES FRACTIONS IF PERFORMED (04/18/2019 4:13 PM EST) VITAMIN D, 25-HYDROXY 33 30 - 80 ng/mL 04/18/2019 7:04 PM EST [facility] 04/18/2019 4:13 PM EST 04/18/2019 4:14 PM EST Taras Meredith MD LAB Performing Organization Address [facility] Co de Phone Number [facility] [employer] * PHOSPHORUS, BLOOD, ASSAY (04/18/2019 4:13 PM EST) Phosphorus 3.6 2.5 - 4.5 mg/dL 04/18/2019 6:48 PM EST [facility] 04/18/2019 4:13 PM EST 04/18/2019 4:14 PM EST Taras Meredith MD LAB Performing Organization Address City/State/[facility] Co de Phone Number [facility] [employer] * CALCIUM,TOTAL (04/18/2019 4:13 PM EST) CALCIUM 9.5 8.5 - 10.5 mg/dL 04/18/2019 6:48 PM EST [facility] 04/18/2019 4:13 PM EST 04/18/2019 4:14 PM EST Taras Meredith MD LAB Performing Organization Address [facility]/ZIP Co de Phone Number [facility] [employer] * ELECTROLYTE PANEL (04/18/2019 4:13 PM EST) NA 137 135 - 145 mEq/L 04/18/2019 6:48 PM EST [facility] K 3.6 3.5 - 5.5 mmol/L 04/18/2019 6:48 PM EST [facility] CL 102 96 - 110 mmol/L 04/18/2019 6:48 PM EST [facility] CARBON DIOXIDE (CO2) 30 21 - 32 mmol/L 04/18/2019 6:48 PM EST [facility] ANION GAP 5 3 - 11 04/18/2019 6:48 PM EST [facility] 04/18/2019 4:13 PM EST 04/18/2019 4:14 PM EST Taras Meredith MD LAB Performing Organization Address [facility] Co de Phone Number [employer] * CREATININE, BLOOD ASSAY (04/18/2019 4:13 PM EST) CREAT 0.94 0.5 - 1.1 mg/dL 04/18/2019 6:48 PM EST [facility] GLOMERULAR FILTRATION RATE 60 04/18/2019 6:48 PM EST [facility] Comment: If patient is -Croatian, multiply result by 1.21 Chronic Kidney Disease: < 60 ml/min/1.73 square meters Kidney Failure: < 15 ml/min/1.73 square meters 04/18/2019 4:13 PM EST 04/18/2019 4:14 PM EST Taras Meredith MD LAB Performing Organization Address City/[facility]/ZIP Co de Phone Number [facility] [employer] * (ABNORMAL) BLOOD UREA NITROGEN (BUN) (04/18/2019 4:13 PM EST) Blood Urea Nitrogen 28(H) 5 - 25 mg/dL 04/18/2019 6:48 PM EST [facility] 04/18/2019 4:13 PM EST 04/18/2019 4:14 PM EST Taras Meredith MD LAB [facility] documented in this encounter Visit Diagnoses Diagnosis Chronic kidney disease, stage III (moderate) (HCC)- Primary Chronic kidney disease, Stage III (moderate) documented in this encounter Care Teams Cleaning Technician Relationship Specialty Start Date End Date Janell Bailon DO PCP - General Internal Medicine 08/30/18 03/18/21 Marcelo Benitez MD PCP - General Internal Medicine 03/19/21 10/15/21 Petra Melton MD [address] [place] [address] PCP - General Internal Medicine 10/16/21 documented as of this encounter
--- OUTSIDE RECORDS SUMMARY | 2025-04-09 18:27 | XMS_ITS | Encounter Summary ---
Author Organization [facility] Prior to 02/11/2024 Address [address] [place] [address] Care Team Providers Care Electric Motor Fitter Name Role Phone Community, Pcp Primary Care Provider Unavailabl e Training, Med Ped Provider Primary Care Provider Unavailable Community, Pcp Primary Care Provider Unavailabl e Janell Bailon DO Primary Care Pro vider Unavailable Herve Carlos MD Primary Care Provider [phone] Gumaro Bailonabela DO Primary Care Pro vider Unavailable Marcelo Benitez MD Primary Care Provider Petra Kim MD Primary Care Prov ider Encounter Details Date Type Department Care Team Description 02/21/2015 Release of Information Medical Records [address] [place] [address] Abstract, Provider Social History Tobacco Use Types [...] on filedocumented in this encounter Care Teams Electric Motor Fitter Relationship Specialty Start Date End Date Community, Pcp PCP - General Internal Medicine 11/30/14 05/12/15 Training, Med Ped Provider PCP - General Med/Peds 05/13/15 Community, Pcp PCP - General Internal Medicine 05/28/15 06/02/15 Janell Bailon DO PCP - General Internal Medicine 06/03/15 07/04/18 Herve Carlos MD [address] [place] [address] PCP - General Internal Medicine 07/05/18 08/29/18 Janell Bailon DO PCP - General Internal Medicine 08/30/18 03/18/21 Marcelo Benitez MD [address] [place] [address] PCP - General Internal Medicine 03/19/21 10/15/21 Petra Melton MD [address] [place] [address] PCP - General Internal Medicine 10/16/21 documented as of this encounter
--- OUTSIDE RECORDS SUMMARY | 2025-04-09 18:27 | XMS_ITS | Encounter Summary ---
Author Organization [facility] [facility] Prior to 02/11/2024 Address [address] [place] [address] Care Team Providers Care Special Education Paraeducator Name Role Phone Janell Bailon DO Primary Care Pro vider Unavailable Marcelo Benitez MD Primary Care Provider Petra Kim MD Primary Care Prov ider Encounter Details Date Type Department Care Team Description 06/15/2019 Agriscience Teacher Report Medical Records [address] [place] [address] Helio Najera MD Social History Tobacco Use Types Packs/Day Years [...] on filedocumented in this encounter Care Teams Special Education Paraeducator Relationship Specialty Start Date End Date Janell Bailon DO PCP - General Internal Medicine 08/30/18 03/18/21 Marcelo Benitez MD PCP - General Internal Medicine 03/19/21 10/15/21 Petra Melton MD [address] [place] [address] PCP - General Internal Medicine 10/16/21 documented as of this encounter
--- OUTSIDE RECORDS SUMMARY | 2025-04-09 18:27 | XMS_ITS | Encounter Summary ---
Author Organization [facility] Prior to 02/11/2024 Address [address] [place] [address] Care Team Providers Care Senior Safety Management Consultant Name Role Phone Petra Melton MD Primary Care Prov ider Encounter Details Date Type Department Care Team Description 01/19/2023 Flower Picker Report Medical Records [address] [place] [address] Helio Najera MD Social History Tobacco Use [...] on filedocumented in this encounter Care Teams Senior Safety Management Consultant Relationship Specialty Start Date End Date Petra Melton MD [address] [place] [address] PCP - General Internal Medicine 10/16/21 documented as of this encounter
--- OUTSIDE RECORDS SUMMARY | 2025-04-09 18:27 | XMS_ITS | Encounter Summary ---
Author Organization [facility] [facility] Prior to 02/11/2024 Address [address] [place] [address] Care Team Providers Care Cattle Killer Name Role Phone Janell Bailon DO Primary Care Pro vider Unavailable Marcelo Benitez MD Primary Care Provider Petra Kim MD Primary Care Prov ider Encounter Details Date Type Department Care Team Description 06/18/2020 Old Medical Records Medical Records [address] [place] [address] Abstract, Provider Social History Tobacco Use Types Packs/Day Years Used Date Smoking Tobacco: Never Smokeless Tobacco: Never Alcohol Use Standard Drinks/Week Comments No 0 (1 standard drink = 0.6 oz pur e alcohol) Sex Assigned at Date Recorded Not on file Job Start Date Occupation Industry Not on file Not on file Not on file COVID-19 Exposure Response Date Recorded In the last month, have you been in contact with someone who was confirmed or suspected to have Coronavirus / COVID-19? No / Unsure 05/30/2020 3:46 PM EST documented as of this encounter Plan of Treatment Not on file documented as of this encounter Visit Diagnoses Not on filedocumented in this encounter Care Teams Cattle Killer Relationship Specialty Start Date End Date Janell Bailon DO PCP - General Internal Medicine 08/30/18 03/18/21 Marcelo Benitez MD PCP - General Internal Medicine 03/19/21 10/15/21 Petra Melton MD [address] [place] [address] PCP - General Internal Medicine 10/16/21 documented as of this encounter
--- OUTSIDE RECORDS SUMMARY | 2025-04-09 18:27 | XMS_ITS | Encounter Summary ---
Author Organization [facility] Prior to 02/11/2024 Address [address] [place] [address] Care Team Providers Care Hydroelectric Machinery Mechanic Helper Name Role Phone Marcelo Benitez MD Primary Care Provider Petra Kim MD Primary Care Prov ider Reason for Visit * Reason Onset Date Comments refill request 09/12/2021 Encounter Details Date Type Department Care Team Description 09/12/2021 Refill Adult Medicine [address] [address] Marcelo Benitez MD refill request Social History Tobacco Use Types Packs/Day Years [...] encounter Miscellaneous Notes * Telephone Encounter - Marcelo Benitez - 09/12/2021 1:21 PM EDT Clonazepam needs to come from her psycahitry * Telephone Encounter - Medina Marin M.A. - 09/12/2021 1:14 PM EDT LRF Clonazepam 03/26/[address] Starks last dispensed on 08/20/21 for 30 day supply. JACOB 08/02/20 - previous PCP NOV 09/29/21 - Dinah Whitehead *patient has NOT established with you, inappropriate to send to Support pool for refill consideration. Lab Results Component Value Date TSH 3.06 09/20/2020 Lab Results Component Value Date CHOL 183 09/20/2020 LDL 97 09/20/2020 HDL 55 09/20/2020 TRIG 157 09/20/2020 SGOT 34 09/20/2020 SGPT 59 09/20/2020 * Telephone Encounter - Maria E Delgado - 09/12/2021 1:05 PM EDT Patient would like script to be: E-PRESCRIBED/FAXED TO PHARMACY WHEN WAS THE PATIENT'S LAST APPOINTMENT IN ADULT MEDICINE? 08/02/2020 WHEN WAS THE LAST TIME THE PATIENT SAW THEIR PCP? Never Seen Does patient have an upcoming appointment? Yes 09/29/2021 (THE MEDICATION REQUESTED IS ON THE MED LIST ABOVE) All of the medications requested were on the CURRENT MEDS list Did you check the Pharmacy information above?: YES Patient wants: 90 -day supply Is this a mail order prescription request ? NO If the refill is from a FAXED refill request what is the RX # listed on the fax? N/A Patients current insurance carrier is: [place] / Product Type: [place]ICA[place] [id number] documented in this encounter Plan of Treatment Not on file documented as of this encounter Visit Diagnoses Diagnosis PTSD (post-traumatic stress disorder) Posttraumatic stress disorder documented in this encounter Care Teams Hydroelectric Machinery Mechanic Helper Relationship Specialty Start Date End Date Marcelo Benitez MD PCP - General Internal Medicine 03/19/21 10/15/21 Petra Melton MD [address] [place] [address] PCP - General Internal Medicine 10/16/21 documented as of this encounter
--- OUTSIDE RECORDS SUMMARY | 2025-04-09 18:27 | XMS_ITS | Encounter Summary ---
Author Organization [facility] Prior to 02/11/2024 Address [address] [place] [address] Care Team Providers Care Talend Etl Developer Name Role Phone Janell Bailon DO Primary Care Pro vider Unavailable Herve Carlos MD Primary Care Provider [phone] Janell Bailon DO Primary Care Pro vider Unavailable Marcelo Benitez MD Primary Care Provider Petra Kim MD Primary Care Prov ider Reason for Referral * Non ADALBERTO (Priority) - Authorized/Booked Specialty Diagnoses / Procedures Referred By Jeremiah kemp Referred To Contact Endocrinology Procedures REFERRAL TO ENDOCRINOLOGY Janell Bailon DO [address] [place], [place] [id number] [place] [address] Referral ID Status Reason Start Date Expiration Date V isits Requested Visits Authorized [id number] Authorized/B ooked 11/11/2017 11/11/2018 1 1 Encounter Details Date Type Department Care Team Description 11/11/2017 Orders Only Adult Medicine [address] [address] Janell Bailon DO Substernal thyroid (Primary Dx) Social History Tobacco Use Types [...] as of this encounter Visit 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
--- OUTSIDE RECORDS SUMMARY | 2025-04-09 18:27 | XMS_ITS | Encounter Summary ---
Author Organization [facility] Prior to 02/11/2024 Address [address] [place] [address] Care Team Providers Care Wood Casket Assembler Name Role Phone Janell Bailon DO Primary Care Pro vider Unavailable Herve Carlos MD Primary Care Provider [phone] Janell Bailon DO Primary Care Pro vider Unavailable Marcelo Benitez MD Primary Care Provider Petra Kim MD Primary Care Prov ider Encounter Details Date Type Department Care Team Description 05/06/2017 Transfer Records Medical Records [address] [place] [address] Abstract, Provider Social History Tobacco Use Types [...] on filedocumented in this encounter Care Teams Wood Casket Assembler Relationship Specialty Start Date End Date Janell Bailon DO PCP - General Internal Medicine 06/03/15 07/04/18 Herve Carlos MD [address] [place], [place] [phone] PCP - General Internal Medicine 07/05/18 08/29/18 [place] Colasacco, Janell, DO PCP - General Internal Medicine 08/30/18 03/18/21 Marcelo Benitez MD [address] [place] [address] PCP - General Internal Medicine 03/19/21 10/15/21 Petra Melton MD [address] [place] [address] PCP - General Internal Medicine 10/16/21 documented as of this encounter
--- OUTSIDE RECORDS SUMMARY | 2025-04-09 18:27 | XMS_ITS | Encounter Summary ---
Author Organization [facility] Prior to 02/11/2024 Address [address] [place] [address] Care Team Providers Care Data Entry Name Role Phone Petra Melton MD Primary Care Prov ider Encounter Details Date Type Department Care Team Description 04/14/2023 Orders Only Medical Records [address] [place] [address] [facility] Social History Tobacco Use Types Packs/Day Years [...] Name Priority Date/Time Associated Diagnosis Comments OUTSIDE PLAIN FILM Routine 04/03/2023 documented in this encounter Results * OUTSIDE PLAIN FILM (04/03/2023) [facility] RADIOLOGY documented in this encounter Visit Diagnoses Not on filedocumented in this encounter Care Teams Data Entry Relationship Specialty Start Date End Date Ptera Melton MD [address] [place], [place] [phone] PCP - General Internal Medicine 10/16/21 documented as of this encounter
--- OUTSIDE RECORDS SUMMARY | 2025-04-09 18:27 | XMS_ITS | Encounter Summary ---
Author Organization [facility] Prior to 02/11/2024 Address [address] [place] [address] Care Team Providers Care Appointment Setter Name Role Phone Janell Bailon DO Primary Care Pro vider Unavailable Herve Carlos MD Primary Care Provider [phone] Janell Bailon DO Primary Care Pro vider Unavailable Marcelo Benitez MD Primary Care Provider Petra Kim MD Primary Care Prov ider Reason for Visit * Reason Onset Date Comments Testing 11/22/2015 Encounter Details Date Type Department Care Team Description 11/22/2015 Telephone Adult Medicine [address] [address] Janell Bailon DO Testing Social History Tobacco Use Types Packs/Day Years [...] Telephone Encounter - Cheli Boston M.A. - 11/22/2015 1:51 PM EDT Pt requesting thyroid lab test last lab was 01/2015 documented in this encounter Plan of Treatment Not on file documented as of this encounter Visit Diagnoses Not on filedocumented in this encounter Care Teams Appointment Setter Relationship Specialty Start Date End Date Janell Bailon DO PCP - General Internal Medicine 06/03/15 07/04/18 Herve Carlos MD [address] [place] [address] PCP - General Internal Medicine 07/05/18 08/29/18 Janell Bailon DO PCP - General Internal Medicine 08/30/18 03/18/21 Marcelo Benitez MD [address] [place] [address] PCP - General Internal Medicine 03/19/21 10/15/21 Petra Melton MD [address] [place] [address] PCP - General Internal Medicine 10/16/21 documented as of this encounter
--- OUTSIDE RECORDS SUMMARY | 2025-04-09 18:27 | XMS_ITS | Encounter Summary ---
Author Organization [employer] [facility] Prior to 02/11/2024 Address [address] [place] [address] Care Team Providers Care Promotional Representative Name Role Phone Janell Bailon DO Primary Care Pro vider Unavailable Marcelo Benitez MD Primary Care Provider Petra Kim MD Primary Care Prov ider Reason for Visit * Reason Onset Date Comments APPOINTMENT 03/05/2021 pt needs to jessee se a new pcp and schedule appt for med review refills Encounter Details Date Type Department Care Team Description 03/05/[address] [address] Janell Bailon DO APPOINTMENT (pt needs to choose a new pcp and schedule appt for med review refills) Social History Tobacco Use Types Packs/Day Years [...] on filedocumented in this encounter Care Teams Promotional Representative Relationship Specialty Start Date End Date Janell Bailon DO PCP - General Internal Medicine 08/30/18 03/18/21 Marcelo Benitez MD PCP - General Internal Medicine 03/19/21 10/15/21 Petra Melton MD [address] [place] [address] PCP - General Internal Medicine 10/16/21 documented as of this encounter
--- OUTSIDE RECORDS SUMMARY | 2025-04-09 18:27 | XMS_ITS | Encounter Summary ---
Author Organization [employer] [facility] Prior to 02/11/2024 Address [address] [place] [address] Care Team Providers Care Wire Transfer Clerk Name Role Phone Priscila Farah MD Primary Care Provider Unavail able Community, Pcp Primary Care Provider Unavailabl e Training, Med Ped Provider Primary Care Provider Unavailable [facility], Pcp Primary Care Provider Unavailabl e Janell Bailon DO Primary Care Pro vider Unavailable Herve Carlos MD Primary Care Provider Deborah Lazo, Janell DO Primary Care Pro vider Unavailable Marcelo Benitez MD Primary Care Provider Petra Kim MD Primary Care Prov ider Encounter Details Date Type Department Care Team Description 05/24/2014 Stencil Printer Report Medical Records [address] [place] [address] Viry Pinto MD Social History Tobacco Use Types Packs/Day [...] on filedocumented in this encounter Care Teams Wire Transfer Clerk Relationship Specialty Start Date End Date Priscila Farah MD PCP - General 06/02/06 11/29/14 [facility], Pcp PCP - General Internal Medicine 11/30/14 05/12/15 Training, Med Ped Provider PCP - General Med/Peds 05/13/15 [facility], Pcp PCP - General Internal Medicine 05/28/15 06/02/15 Janell Bailon DO PCP - General Internal Medicine 06/03/15 07/04/18 Herve Carlos MD [address] [place] [address] PCP - General Internal Medicine 07/05/18 08/29/18 Janell Bailon DO PCP - General Internal Medicine 08/30/18 03/18/21 Marcelo Benitez MD [address] [place] [address] PCP - General Internal Medicine 03/19/21 10/15/21 Petra Melton MD [address] [place] [address] PCP - General Internal Medicine 10/16/21 documented as of this encounter
--- OUTSIDE RECORDS SUMMARY | 2025-04-09 18:27 | XMS_ITS | Encounter Summary ---
Author Organization [employer] [facility] Prior to 02/11/2024 Address [address] [place] [address] Care Team Providers Care Hydrodynamics Teacher Name Role Phone Priscila Farah MD Primary Care Provider Unavail able Community, Pcp Primary Care Provider Unavailabl e Training, Med Ped Provider Primary Care Provider Unavailable [facility], Pcp Primary Care Provider Unavailabl e Janell Bailon DO Primary Care Pro vider Unavailable Herve Carlos MD Primary Care Provider [phone] Deborah Lazo, Janell DO Primary Care Pro vider Unavailable Marcelo Benitez MD Primary Care Provider Petra Kim MD Primary Care Prov ider Encounter Details Date Type Department Care Team Description 08/17/2014 Conveyor Installer Report Medical Records [address] [place] [address] Helio Najera MD Social History Tobacco Use [...] on filedocumented in this encounter Care Teams Hydrodynamics Teacher Relationship Specialty Start Date End Date Priscila Farah MD PCP - General 06/02/06 11/29/14 Community, Pcp PCP - General Internal Medicine 11/30/14 05/12/15 Training, Med Ped Provider PCP - General Med/Peds 05/13/15 Community, Pcp PCP - General Internal Medicine 05/28/15 06/02/15 Janell Bailon DO PCP - General Internal Medicine 06/03/15 07/04/18 Herve Carlos MD [address] [place] [address] PCP - General Internal Medicine 07/05/18 08/29/18 Janell Bailon DO PCP - General Internal Medicine 08/30/18 03/18/21 Marcelo Benitez MD [address] [place] [address] PCP - General Internal Medicine 03/19/21 10/15/21 Petra Melton MD [address] [place] [address] PCP - General Internal Medicine 10/16/21 documented as of this encounter
--- OUTSIDE RECORDS SUMMARY | 2025-04-09 18:27 | XMS_ITS | Encounter Summary ---
Author Organization [facility] Prior to 02/11/2024 Address [address] [place] [address] Care Team Providers Care Small Business Director Name Role Phone Janell Bailon DO Primary Care Pro vider Unavailable Herve Carlos MD Primary Care Provider [phone] Janell Bailon DO Primary Care Pro vider Unavailable Marcelo Benitez MD Primary Care Provider Petra Kim MD Primary Care Prov ider Encounter Details Date Type Department Care Team Description 01/31/2016 Release of Information Medical Records [address] [place] [address] Abstract, Provider Social History Tobacco Use Types [...] on filedocumented in this encounter Care Teams Small Business Director Relationship Specialty Start Date End Date Janell Bailon DO PCP - General Internal Medicine 06/03/15 07/04/18 Herve Carlos MD [address] [place], [place] [phone] PCP - General Internal Medicine 07/05/18 08/29/18 Janell Bailon DO PCP - General Internal Medicine 08/30/18 03/18/21 Marcelo Benitez MD [address] [place] [address] PCP - General Internal Medicine 03/19/21 10/15/21 Petra Melton MD [address] [place] [address] PCP - General Internal Medicine 10/16/21 documented as of this encounter
--- OUTSIDE RECORDS SUMMARY | 2025-04-09 18:27 | XMS_ITS | Encounter Summary ---
Author Organization [facility] Prior to 02/11/2024 Address [address] [place] [address] Care Team Providers Care Tire Mounter Name Role Phone Marcelo Benitez MD Primary Care Provider Petra Kim MD Primary Care Prov ider Reason for Visit * Reason Onset Date Comments medication problems 03/19/2021 Encounter Details Date Type Department Care Team Description 03/19/2021 Telephone Adult Medicine [address] [address] Janell Bailon DO medication problems Social History Tobacco Use Types Packs/Day Years [...] have Coronavirus / COVID-19? No / Unsure 03/19/2021 3:52 PM EST documented as of this encounter Miscellaneous Notes * Telephone Encounter - Anuel Carlos C.M.A. - 03/19/2021 4:32 PM EST Called pharmacy and was hild for 24 min, they answered and call dropped. Called back line said 4 people in front of me. Will attempt back tomorrow * Telephone Encounter - Twan Prince - 03/19/2021 3:53 PM EST What is the name of the medication patient is having a problem with?: levothyroxine 112 MCG tablet What is the problem?: Pharmacy never receive scrip Is the patient calling about the problem? YES If the patient is not the caller who is? Is this a NEW medication?: NO How long has the patient been taking this medication? Who prescribed this medication for the patient? Kelly Berrios Who is patients PCP?: Marcelo Benitze [place] / Product Type: MEDICAID [id number] documented in this encounter Plan of Treatment Not on file documented as of this encounter Visit Diagnoses Not on filedocumented in this encounter Care Teams Tire Mounter Relationship Specialty Start Date End Date Marcelo Benitez MD PCP - General Internal Medicine 03/19/21 10/15/21 Petra Melton MD [address] [place] [address] PCP - General Internal Medicine 10/16/21 documented as of this encounter
--- OUTSIDE RECORDS SUMMARY | 2025-04-09 18:27 | XMS_ITS | Encounter Summary ---
Author Organization [facility] Prior to 02/11/2024 Address [address] [place] [address] Care Team Providers Care Care Specialist Name Role Phone Priscila Farah MD Primary [...] for Visit * Reason Onset Date Comments TEST RESULTS 07/03/2013 Encounter Details Date Type Department Care Team Description 07/03/2013 Telephone Nephrology - Elisabet [address] [place] [address] Taras Meredith MD [address] [place] [address] TEST RESULTS Social History Tobacco Use Types Packs/Day Years [...] encounter Miscellaneous Notes * Telephone Encounter - Clementina Kusum - 07/03/2013 11:18 AM EDT Inform patient: ANY URGENT OR ABNORMAL RESULTS WIILL RESULT IN A CALL BACK TO THE PATIENT VANCE. Type of test: :lab work Date test was performed: 06/29/13 Where was the test performed[place] [facility] [place] Who ordered this test?: Dr. Meredith Is the doctor here today?: NO Can the message wait until the doctor returns?: YES IF PATIENT'S PCP IS NOT IN INSTRUCT PATIENT THAT THEY WILL RECEIVE A CALL BACK WHEN THE PCP IS IN THE OFFICE NEXT. documented in this encounter Plan of Treatment Not on file documented as of this encounter Visit Diagnoses Not on filedocumented in this encounter Care Teams Care Specialist Relationship Specialty Start Date End Date Priscila Farah MD PCP - General 06/02/06 11/29/14 [facility], Pcp PCP - General Internal Medicine 11/30/14 05/12/15 Training, Med Ped Provider PCP - General Med/Peds 05/13/15 [facility], Pcp PCP - General Internal Medicine 05/28/15 06/02/15 Janell Bailon DO PCP - General Internal Medicine 06/03/15 07/04/18 Herve Carlos MD [address] [place] [address] PCP - General Internal Medicine 07/05/18 08/29/18 Janell Bailon DO PCP - General Internal Medicine 08/30/18 03/18/21 Marcelo Benitez MD [address] [place] [address] PCP - General Internal Medicine 03/19/21 10/15/21 Petra Melton MD [address] [place] [address] PCP - General Internal Medicine 10/16/21 documented as of this encounter
--- OUTSIDE RECORDS SUMMARY | 2025-04-09 18:27 | XMS_ITS | Encounter Summary ---
Author Organization [employer] [facility] Prior to 02/11/2024 Address [address] [place] [address] Care Team Providers Care Remote Medical Coder Name Role Phone Priscila Farah MD Primary Care Provider Unavail able Community, Pcp Primary Care Provider Unavailabl e Training, Med Ped Provider Primary Care Provider Unavailable [facility], Pcp Primary Care Provider Unavailabl e Janell Bailon DO Primary Care Pro vider Unavailable Herve Carlos MD Primary Care Provider Deborah Lazo, Janell DO Primary Care Pro vider Unavailable Marcelo Benitez MD Primary Care Provider Petra Kim MD Primary Care Prov ider Encounter Details Date Type Department Care Team Description 02/06/2013 Release of Information Medical Records [address] [place] [address] Abstract, Provider Social History Tobacco Use Types Packs/Day Years Used Date Smoking Tobacco: Never Smokeless Tobacco: Never Alcohol Use Standard Drinks/Week Comments No 0 (1 standard drink = 0.6 oz pur e alcohol) Sex Assigned at Date Recorded Not on file Job Start Date Occupation Industry Not on file Not on file Not on file documented as of this encounter Nursing Notes * 02/06/2013 12:00 PM EDT >> JOSE MARIA HINES Mon Feb 06, 2013 4:[address] Rogel from [facility] called requesting copy of labs of 12/08/12 & current med list as pt admitted to hospital. documented in this encounter Plan of Treatment Not on file documented as of this encounter Visit Diagnoses Not on filedocumented in this encounter Care Teams Remote Medical Coder Relationship Specialty Start Date End Date Priscila Farah MD PCP - General 06/02/06 11/29/14 [facility], Pcp PCP - General Internal Medicine 11/30/14 05/12/15 Training, Med Ped Provider PCP - General Med/Peds 05/13/15 [facility], Pcp PCP - General Internal Medicine 05/28/15 06/02/15 Janell Bailon DO PCP - General Internal Medicine 06/03/15 07/04/18 Herve Carlos MD [address] [place] [address] PCP - General Internal Medicine 07/05/18 08/29/18 Janell Bailon DO PCP - General Internal Medicine 08/30/18 03/18/21 Marcelo Benitez MD [address] [place] [address] PCP - General Internal Medicine 03/19/21 10/15/21 Petra Melton MD [address] [place] [address] PCP - General Internal Medicine 10/16/21 documented as of this encounter
--- OUTSIDE RECORDS SUMMARY | 2025-04-09 18:27 | XMS_ITS | Encounter Summary ---
Author Organization [employer] [facility] Prior to 02/11/2024 Address [address] [place] [address] Care Team Providers Care Hot Car Operator Name Role Phone Priscila Farah MD Primary [...] for Visit * Reason Onset Date Comments other 09/21/2011 maria isabel Encounter Details Date Type Department Care Team Description 09/21/2011 Telephone Adult Medicine [facility] [address] [place] [address] Priscila Farah MD other (maria isabel) Social History Tobacco Use Types Packs/Day Years [...] encounter Miscellaneous Notes * Telephone Encounter - Breanne Snyder L.P.N. - 09/21/2011 4:08 PM EDT 0pt ? Is she could go in sauna No rash or [id number] states skin is clear Feels good Ok to use sauna * Telephone Encounter - Roverto Srivastava - 09/21/2011 3:32 PM EDT Patient was diagnosed with shingles last month. She is feeling much better but is wondering if she should have any restrictions if she is to start back at the gym/with a workout routine? documented in this encounter Plan of Treatment Not on file documented as of this encounter Visit Diagnoses Not on filedocumented in this encounter Care Teams Hot Car Operator Relationship Specialty Start Date End Date Priscila Farah MD PCP - General 06/02/06 11/29/14 [facility], Pcp PCP - General Internal Medicine 11/30/14 05/12/15 Training, Med Ped Provider PCP - General Med/Peds 05/13/15 [facility], Pcp PCP - General Internal Medicine 05/28/15 06/02/15 Janell Bailon DO PCP - General Internal Medicine 06/03/15 07/04/18 Herve Carlos MD [address] [place] [address] PCP - General Internal Medicine 07/05/18 08/29/18 Janell Bailon DO PCP - General Internal Medicine 08/30/18 03/18/21 Marcelo Benitez MD [address] [place] [address] PCP - General Internal Medicine 03/19/21 10/15/21 Petra Melton MD [address] [place] [address] PCP - General Internal Medicine 10/16/21 documented as of this encounter
--- OUTSIDE RECORDS SUMMARY | 2025-04-09 18:27 | XMS_ITS | Encounter Summary ---
Author Organization [employer] [facility] Prior to 02/11/2024 Address [address] [place] [address] Care Team Providers Care Infantry Weapons Officer Name Role Phone Priscila Farah MD Primary Care Provider Unavail able [facility], Pcp Primary Care Provider Unavailabl e Training, Med Ped Provider Primary Care Provider Unavailable [facility], Pcp Primary Care Provider Unavailabl e Janell Bailon DO Primary Care Pro vider Unavailable Herve Carlos MD Primary Care Provider [phone] Deborah Lazo, Janell DO Primary Care Pro vider Unavailable Marcelo Benitez MD Primary Care Provider Petra Kim MD Primary Care Prov ider Encounter Details Date Type Department Care Team Description 02/07/2013 Hospital Medical Records [address] [place] [address] Alma Morocho PA-C Social History Tobacco Use Types Packs/Day [...] on filedocumented in this encounter Care Teams Infantry Weapons Officer Relationship Specialty Start Date End Date Priscila Farah MD PCP - General 06/02/06 11/29/14 [facility], Pcp PCP - General Internal Medicine 11/30/14 05/12/15 Training, Med Ped Provider PCP - General Med/Peds 05/13/15 [facility], Pcp PCP - General Internal Medicine 05/28/15 06/02/15 Janell Bailon DO PCP - General Internal Medicine 06/03/15 07/04/18 Herve Carlos MD [address] [place] [address] PCP - General Internal Medicine 07/05/18 08/29/18 Janell Bailon DO PCP - General Internal Medicine 08/30/18 03/18/21 Marcelo Benitez MD [address] [place] [address] PCP - General Internal Medicine 03/19/21 10/15/21 Petra Melton MD [address] [place] [address] PCP - General Internal Medicine 10/16/21 documented as of this encounter
--- OUTSIDE RECORDS SUMMARY | 2025-04-09 18:27 | XMS_ITS | Encounter Summary ---
Author Organization [facility] Prior to 02/11/2024 Address [address] [place] [address] Care Team Providers Care Roller Helper Name Role Phone Janell Bailon DO Primary Care Pro vider Unavailable Herve Carlos MD Primary Care Provider [phone] Janell Bailon DO Primary Care Pro vider Unavailable Marcelo Benitez MD Primary Care Provider Petra Kim MD Primary Care Prov ider Reason for Visit * Reason Onset Date Comments TEST RESULTS 05/03/2018 Encounter Details Date Type Department Care Team Description 05/03/2018 Telephone Adult Medicine [address] [address] Lis Evans PA-C TEST RESULTS Social History Tobacco Use Types [...] encounter Miscellaneous Notes * Telephone Encounter - Summer Rodriguez M.A. - 05/03/2018 9:31 AM EST Left message for pt to returned my call [phone] * Telephone Encounter - Summer Rodriguez M.A. - 05/03/2018 9:30 AM EST ----- Message from Lis Evans PA-C sent at 05/02/2018 4:36 PM EST ----- Please tell patient labs are mostly normal except elevated tsh. Is she taking her thyroid med daily? Without eating for 30 min? Telephone Information: Other [phone] documented in this encounter Plan of Treatment Not on file documented as of this encounter Visit Diagnoses Not on filedocumented in this encounter Care Teams Roller Helper Relationship Specialty Start Date End Date Janell Bailon DO PCP - General Internal Medicine 06/03/15 07/04/18 Herve Carlos MD [address] [place] [address] PCP - General Internal Medicine 07/05/18 08/29/18 Janell Bailon DO PCP - General Internal Medicine 08/30/18 03/18/21 Marcelo Benitez MD [address] [place] [address] PCP - General Internal Medicine 03/19/21 10/15/21 Petra Melton MD [address] [place] [address] PCP - General Internal Medicine 10/16/21 documented as of this encounter
--- OUTSIDE RECORDS SUMMARY | 2025-04-09 18:27 | XMS_ITS | Encounter Summary ---
Author Organization [facility] [facility] Prior to 02/11/2024 Address [address] [place] [address] Care Team Providers Care Work Manager Name Role Phone Priscila Farah MD Primary Care Provider Unavail able Community, Pcp Primary Care Provider Unavailabl e Training, Med Ped Provider Primary Care Provider Unavailable [facility], Pcp Primary Care Provider Unavailabl e Janell Bailon DO Primary Care Pro vider Unavailable Herve Carlos MD Primary Care Provider [phone] Deborah Colarchana, Janell DO Primary Care Pro vider Unavailable Marcelo Benitez MD Primary Care Provider Petra Kim MD Primary Care Prov ider Reason for Visit * Reason Onset Date Comments Abnormal Mammogram 09/13/2012 Encounter Details Date Type Department Care Team Description 09/13/2012 Telephone Radiology - [address] [address] Radiology, Authorizing Abnormal Mammogram Social History Tobacco Use Types Packs/Day Years [...] encounter Miscellaneous Notes * Telephone Encounter - Nadine Yadav - 10/03/2012 3:13 PM EDT 10/03/12 Sent certified letter milan day on our phone but gave a phone number with too many numbers/could not call her back/lh 7-9 called hm number Ming with a man/lh * Telephone Encounter - Nadine Yadav - 09/21/2012 11:53 AM EDT Sent standard letter on 09/21/12 bw * Telephone Encounter - Letty Mccoy - 09/13/2012 9:24 AM EDT Day/lh documented in this encounter Plan of Treatment Not on file documented as of this encounter Visit Diagnoses Not on filedocumented in this encounter Care Teams Work Manager Relationship Specialty Start Date End Date Priscila Farah MD PCP - General 06/02/06 11/29/14 [facility], Pcp PCP - General Internal Medicine 11/30/14 05/12/15 Training, Med Ped Provider PCP - General Med/Peds 05/13/15 [facility], Pcp PCP - General Internal Medicine 05/28/15 06/02/15 Janell Bailon DO PCP - General Internal Medicine 06/03/15 07/04/18 Herve Carlos MD [address] [place] [address] PCP - General Internal Medicine 07/05/18 08/29/18 Janell Bailon DO PCP - General Internal Medicine 08/30/18 03/18/21 Marcelo Benitez MD [address] [place] [address] PCP - General Internal Medicine 03/19/21 10/15/21 Petra Melton MD [address] [place] [address] PCP - General Internal Medicine 10/16/21 documented as of this encounter
--- OUTSIDE RECORDS SUMMARY | 2025-04-09 18:28 | XMS_ITS | Encounter Summary ---
Author Organization [facility] Prior to 02/11/2024 Address [address] [place] [address] Care Team Providers Care Senior Corporate Accountant Name Role Phone Priscila Farah MD Primary Care Provider Unavail able Community, Pcp Primary Care Provider Unavailabl e Training, Med Ped Provider Primary Care Provider Unavailable [facility], Pcp Primary Care Provider Unavailabl e Janell Bailon DO Primary Care Pro vider Unavailable Herve Carlos MD Primary Care Provider Deborah Lazo, Janell DO Primary Care Pro vider Unavailable Marcelo Benitez MD Primary Care Provider Petra Kim MD Primary Care Prov ider Encounter Details Date Type Department Care Team Description 11/28/2010 Hospital Medical Records [address] [place] [address] Willy Pearson MD Social History Tobacco Use Types Packs/Day [...] filedocumented in this encounter Care Teams Senior Corporate Accountant Relationship Specialty Start Date End Date Priscila Farah MD PCP - General 06/02/06 11/29/14 [facility], Pcp PCP - General Internal Medicine 11/30/14 05/12/15 Training, Med Ped Provider PCP - General Med/Peds 05/13/15 [facility], Pcp PCP - General Internal Medicine 05/28/15 06/02/15 Janell Bailon DO PCP - General Internal Medicine 06/03/15 07/04/18 Herve Carlos MD [address] [place] [address] PCP - General Internal Medicine 07/05/18 08/29/18 Janell Bailon DO PCP - General Internal Medicine 08/30/18 03/18/21 Marcelo Benitez MD [address] [place] [address] PCP - General Internal Medicine 03/19/21 10/15/21 Petra Melton MD [address] [place] [address] PCP - General Internal Medicine 10/16/21 documented as of this encounter
--- OUTSIDE RECORDS SUMMARY | 2025-04-09 18:28 | XMS_ITS | Encounter Summary ---
Author Organization [facility] Prior to 02/11/2024 Address [address] [place] [address] Care Team Providers Care Collar Worker Name Role Phone Janell Bailon DO Primary Care Pro vider Unavailable Herve Carlos MD Primary Care Provider [phone] Janell Bailon DO Primary Care Pro vider Unavailable Marcelo Benitez MD Primary Care Provider Petra Kim MD Primary Care Prov ider Encounter Details Date Type Department Care Team Description 07/01/2018 Release of Information Medical Records [address] [place] [address] Abstract, Provider Social History Tobacco Use Types [...] on filedocumented in this encounter Care Teams Collar Worker Relationship Specialty Start Date End Date Janell Bailon DO PCP - General Internal Medicine 06/03/15 07/04/18 Herve Carlos MD [address] [place], [place] [phone] PCP - General Internal Medicine 07/05/18 08/29/18 Janell Bailon DO PCP - General Internal Medicine 08/30/18 03/18/21 Marcelo Benitez MD [address] [place] [address] PCP - General Internal Medicine 03/19/21 10/15/21 Petra Melton MD [address] [place] [address] PCP - General Internal Medicine 10/16/21 documented as of this encounter
--- OUTSIDE RECORDS SUMMARY | 2025-04-09 18:28 | XMS_ITS | Encounter Summary ---
Author Organization [employer] [facility] Prior to 02/11/2024 Address [address] [place] [address] Care Team Providers Care Tour Actor Name Role Phone Priscila Farah MD Primary Care Provider Unavail able Community, Pcp Primary Care Provider Unavailabl e Training, Med Ped Provider Primary Care Provider Unavailable [facility], Pcp Primary Care Provider Unavailabl e Janell Bailon DO Primary Care Pro vider Unavailable Herve Carlos MD Primary Care Provider [phone] Deborah Laoz, Janell DO Primary Care Pro vider Unavailable Marcelo Benitez MD Primary Care Provider Petra Kim MD Primary Care Prov ider Encounter Details Date Type Department Care Team Description 04/27/2013 [facility] [address] [place] [address] Abstract, Provider Social History Tobacco Use Types [...] on filedocumented in this encounter Care Teams Tour Actor Relationship Specialty Start Date End Date Priscila Farah MD PCP - General 06/02/06 11/29/14 Community, Pcp PCP - General Internal Medicine 11/30/14 05/12/15 Training, Med Ped Provider PCP - General Med/Peds 05/13/15 [facility], Pcp PCP - General Internal Medicine 05/28/15 06/02/15 Janell Bailon DO PCP - General Internal Medicine 06/03/15 07/04/18 Herve Carlos MD [address] [place] [address] PCP - General Internal Medicine 07/05/18 08/29/18 Janell Bailon DO PCP - General Internal Medicine 08/30/18 03/18/21 Marcelo Benitez MD [address] [place] [address] PCP - General Internal Medicine 03/19/21 10/15/21 Petra Melton MD [address] [place] [id number] PCP - General Internal Medicine 10/16/21 documented as of this encounter
--- OUTSIDE RECORDS SUMMARY | 2025-04-09 18:28 | XMS_ITS | Encounter Summary ---
Author Organization [employer] [facility] Prior to 02/11/2024 Address [address] [place] [address] Care Team Providers Care Commission Broker Name Role Phone Priscila Farah MD Primary Care Provider Unavail able Community, Pcp Primary Care Provider Unavailabl e Training, Med Ped Provider Primary Care Provider Unavailable [facility], Pcp Primary Care Provider Unavailabl e Janell Bailon DO Primary Care Pro vider Unavailable Herve Carlos MD Primary Care Provider Deborah Lazo, Janell DO Primary Care Pro vider Unavailable Marcelo Benitez MD Primary Care Provider Petra Kim MD Primary Care Prov ider Encounter Details Date Type Department Care Team Description 04/27/2013 [facility] [address] [place] [address] Abstract, Provider Social History Tobacco Use Types [...] on filedocumented in this encounter Care Teams Commission Broker Relationship Specialty Start Date End Date Priscila Farah MD PCP - General 06/02/06 11/29/14 Community, Pcp PCP - General Internal Medicine 11/30/14 05/12/15 Training, Med Ped Provider PCP - General Med/Peds 05/13/15 [facility], Pcp PCP - General Internal Medicine 05/28/15 06/02/15 Janell Bailon DO PCP - General Internal Medicine 06/03/15 07/04/18 Herve Carlos MD [address] [place] [address] PCP - General Internal Medicine 07/05/18 08/29/18 Janell Bailon DO PCP - General Internal Medicine 08/30/18 03/18/21 Marcelo Benitez MD [address] [place] [address] PCP - General Internal Medicine 03/19/21 10/15/21 Petra Melton MD [address] [place] [id number] PCP - General Internal Medicine 10/16/21 documented as of this encounter
--- OUTSIDE RECORDS SUMMARY | 2025-04-09 18:28 | XMS_ITS | Encounter Summary ---
Author Organization [facility] Prior to 02/11/2024 Address [address] [place] [address] Care Team Providers Care Feather Trimmer Name Role Phone Petra Melton MD Primary Care Prov ider Reason for Visit * Reason Onset Date Comments LAB WORK 09/28/2022 Encounter Details Date Type Department Care Team Description 09/28/2022 Telephone Nephrology - [facility] [address] [place] [id number] Taras Meredith MD [address] [place] [id number] LAB WORK Social History Tobacco Use Types Packs/Day Years [...] Miscellaneous Notes * Telephone Encounter - Cheli Cortes - 09/28/2022 4:08 PM EDT Patient is reschedule to see Dr Meredith on 12/09/22. Patient is asking if Dr Meredith can enter new lab work orders. Please call patient. documented in this encounter Plan of Treatment Not on file documented as of this encounter Visit Diagnoses Not on filedocumented in this encounter Care Teams Feather Trimmer Relationship Specialty Start Date End Date Petra Melton MD [address] [place] [id number] PCP - General Internal Medicine 10/16/21 documented as of this encounter
--- OUTSIDE RECORDS SUMMARY | 2025-04-09 18:28 | XMS_ITS | Encounter Summary ---
Author Organization [employer] [facility] Prior to 02/11/2024 Address [address] [place] [address] Care Team Providers Care Food Service Sales Representatives Name Role Phone Priscila Farah MD Primary Care Provider Unavail able Community, Pcp Primary Care Provider Unavailabl e Training, Med Ped Provider Primary Care Provider Unavailable [facility], Pcp Primary Care Provider Unavailabl e Janell Bailon DO Primary Care Pro vider Unavailable Herve Carlos MD Primary Care Provider [phone] Deborah Lazo, Janell DO Primary Care Pro vider Unavailable Marcelo Benitez MD Primary Care Provider Petra Kim MD Primary Care Prov ider Encounter Details Date Type Department Care Team Description 11/28/2010 [facility] [address] [place] [address] Yariel Holt MD Social History Tobacco Use Types Packs/Day [...] on filedocumented in this encounter Care Teams Food Service Sales Representatives Relationship Specialty Start Date End Date Priscila Farah MD PCP - General 06/02/06 11/29/14 Community, Pcp PCP - General Internal Medicine 11/30/14 05/12/15 Training, Med Ped Provider PCP - General Med/Peds 05/13/15 Community, Pcp PCP - General Internal Medicine 05/28/15 06/02/15 Janell Bailon DO PCP - General Internal Medicine 06/03/15 07/04/18 Herve Carlos MD [address] [place] [address] PCP - General Internal Medicine 07/05/18 08/29/18 Janell Bailon DO PCP - General Internal Medicine 08/30/18 03/18/21 Marcelo Benitez MD [address] [place] [address] PCP - General Internal Medicine 03/19/21 10/15/21 Petra Melton MD [address] [place] [id number] PCP - General Internal Medicine 10/16/21 documented as of this encounter
[2025-04-09 18:40] VITALS: BP 149/71; PULSE 97; RESP 16; TEMP 36.7; O2SAT 96
== END 2025-04-09 18:40 | disposition home or self-care (01) ==
PROVIDERS: Physician Assistant Medical; Emergency Provider Emergency Medicine; PCP Internal Medicine
DX: J40 Bronchitis, not specified as acute or chronic (principal); R05.9 Cough, unspecified; R51.9 Headache, unspecified; R42 Dizziness and giddiness; Z79.899 Other long term (current) drug therapy; Z03.818 Encounter for observation for suspected exposure to other biological agents ruled out
CPT/HCPCS: 71046; 87637; 99282; 99283

== ENCOUNTER → 2025-04-09 13:59 | Outpatient (BNV) | payer MEDICARE, SELFPAY | PROVIDERS: PCP Internal Medicine; Visit Provider Radiology Diagnostic Radiology | DX: R05.9 Cough, unspecified (principal) | CPT/HCPCS: 71046 ==